=== PATIENT | male | born 1945 | race Caucasian/White ===

== ENCOUNTER 2016-10-19 08:45 | Day surgery (SDC) | payer BC, MEDICARE, OTHER ==
[~2016-10-19 08:45] MED LIST: EPINEPHRINE INJ 1 MG/10 ML DISP.SYRIN ONE; FENTANYL CITRATE INJ/PF 100 MCG/2 ML AMPUL ONE; FLUMAZENIL INJ 0.5 MG/5 ML VIAL IV ONE; GLUCAGON,HUMAN RECOMB 1 MG INJ ONE; MIDAZOLAM 2 MG/2 ML INJ ONE; NALOXONE HCL INJ/PF 0.4 MG/1 ML SDV ONE; ONDANSETRON HCL INJ/PF 4 MG/2 ML SDV ONE; PROMETHAZINE HCL INJ 25 MG/1 ML VIAL ONE
[2016-10-19] MEDS: MIDAZOLAM 2 MG/2 ML INJ ONE ×2 (10:02→10:10)
--- NOTE | 2016-10-19 10:36 | Operative Report ---
Operative Report DATE OF SURGERY: 10/19/16 PREOPERATIVE DIAGNOSIS: 1. Personal history of colon polyp. 2. History of left colectomy POSTOPERATIVE DIAGNOSIS: Same with. 1. Cecal polyp. 2. Multiple small rectal polyps. 3. External hemorrhoid, collapsed OPERATION: 1. Total colonoscopy to cecum with photodocumentation. 2. Cecal polypectomy. 3. Multiple rectal polypectomies SURGEON: SHANNON SMITH ANESTHESIA: Moderate Sedation TISSUE REMOVED OR ALTERED: Multiple polyps removed COMPLICATIONS: None ESTIMATED BLOOD LOSS: scant INTRAOPERATIVE FINDINGS: See below PROCEDURE: Obtaining informed consent the patient was taken from the preoperative holding area to the main endoscopy suite where monitoring devices were attached to the patient. Plan and surgical timeout were conducted The patient was placed in the left lateral decubitus position with knees to chest. A perianal examination was performed. There was no visible or palpable anorectal pathology. There was a small collapsed external hemorrhoid. Sphincter tone was felt to be normal. The flexible adult colonoscope was advanced through the anal rectal canal, all the way to the cecum. Utilization of the cecum was achieved and the ileocecal valve, the appendiceal orifice and transillumination of the anterior abdominal wall. This was an excellent study on the well-prepped bowel. At the base of the cecum was a small sessile polyp approximately 2 mm in diameter which was removed using the cold forceps device. Specimen was labeled a cecal polyp. Bleeding was negligible. The colonoscope was withdrawn slowly and methodically checked and the mucosa carefully. There was no evidence of tumor, stricture, bleeding. The patient's previous colectomy anastomosis was identified approximately 25 cm from the anal verge. Photos were taken. It appeared normal. In the rectum at approximately 20 cm from the anal verge were multiple small sessile polyps which were removed using cold forceps device. There were all placed in the same container and labeled rectal polyps. Bleeding was negligible ; there was no evidence of diverticular disease. Scope was slowly withdrawn through the anal rectal canal. Complete visualization of the rectum was achieved with photodocumentation. The scope was withdrawn to the patient's anus. The patient tolerated the procedure well and was taken to the recovery area in stable condition. per surveillance guidelines, patient will be appropriate Follow-up colonoscopy in 3 years, or sooner if symptoms develop.
--- NOTE | 2016-10-19 10:37 | PDOC DISCHARGE SUMMARY ---
Discharge Summary (SDC) - Discharge Final Diagnosis: 1. Multiple polyps 2. Ventral wall 3. History of left colon resection Date of Surgery: 10/19/16 Discharge Date: 10/19/16 Condition: Good Treatment or Instructions: [address] [address] POST ENDOSCOPY DISCHARGE INSTRUCTIONS 1. Diet: Start clear liquids that a regular diet as tolerated. 2. Resume all preoperative medications. All oral anticoagulants and aspirins can be resumed 24 hours after procedure. 3. If a polypectomy was performed some bleeding per rectum may occur. This should stop within 3 days. If not, please contact the office. 4. If you had a colonoscopy you may experience some bloating and delayed return of normal bowel function for several days, your regular bowel movement pattern should resume within a week. 5. Please contact [facility] at to make an appointment with Dr. Weiss for 1 to 3 weeks following procedure. 6. If you have any questions or concerns regarding your care,treatment plan or follow up, please contact our office. 7. Per clinical guidelines we recommend you undergo a repeat colonoscopy in 3 years. Discharge Diet: As Tolerated Discharge Activity: Activity As Tolerated Home Care Assistance: None Needed Report the Following to Your Physician Immediately: Shortness of Breath, Increase in Pain, Fever over 101 Degrees
[2016-10-19 11:29] VITALS: BP 123/72
== END 2016-10-19 11:35 | disposition home or self-care (01) ==
LOC: END 08:45
PROVIDERS: ATTEND Surgery
PROC: 0DBH8ZX Excision of Cecum, Via Natural or Artificial Opening Endoscopic, Diagnostic (ICD-10-PCS; 2016-10-19)
PROC: 0DBP8ZX Excision of Rectum, Via Natural or Artificial Opening Endoscopic, Diagnostic (ICD-10-PCS; principal; 2016-10-19 09:15)
DX: C18.9 Malignant neoplasm of colon, unspecified (principal); K63.5 Polyp of colon; D12.0 Benign neoplasm of cecum; I10 Essential (primary) hypertension; F17.210 Nicotine dependence, cigarettes, uncomplicated; Z90.49 Acquired absence of other specified parts of digestive tract; Z79.899 Other long term (current) drug therapy
CPT/HCPCS: 45380; 88305 ×2; J2250; J3010; J0171; J1610; J2310; J2405; J2550; J3490

== ENCOUNTER → 2016-12-05 | Outpatient (CLI) | payer MEDICARE | LOC: RAD 10:12 | PROVIDERS: ATTEND Surgery | DX: J18.9 Pneumonia, unspecified organism (principal); R63.4 Abnormal weight loss | CPT/HCPCS: 71020 ==

== ENCOUNTER → 2016-12-11 | Outpatient (CLI) | payer MEDICARE ==
--- NOTE | 2016-12-11 09:26 | RADIOLOGY REPORT (SQ) ---
EXAM DESCRIPTION: CT ABD/PELVIS ORAL ONLY COMPLETED DATE/TIME: 12/11/2016 9:06 am REASON FOR STUDY: VENTRAL HERNIA W/O OBSTRUCTION K43.9 VENTRAL HERNIA WITHOUT OBSTRUCTION OR GANGRE NE COMPARISON: Chest x-ray dated 12/05/2016. TECHNIQUE: CT scan of the abdomen and pelvis performed with oral contrast and no intravenous contras t. Images reviewed with lung, soft tissue, and bone windows. Reconstructed coronal and sagittal MPR i mages reviewed. All images stored on PACS. All CT scanners at this facility use dose modulation, iterative reconstruction, and/or weight based d osing when appropriate to reduce radiation dose to as low as reasonably achievable (ALARA). [facility]: Dose Right [facility]: CareDose [facility]: Dose Right [facility]: Teradose 4D [facility]: [employer] RADIATION DOSE: 11.84 mGy. LIMITATIONS: None. FINDINGS: LOWER CHEST: Right lower lobe infiltrate. Linear atelectasis or scarring in the left lowe r lobe. Subpulmonic pleural effusion. Small pericardial effusion. NON-CONTRASTED LIVER, SPLEEN, ADRENALS: Evaluation limited by lack of IV contrast. No identified sign ificant masses. PANCREAS: No masses. No peripancreatic inflammatory changes. GALLBLADDER: No identified stones by CT criteria. No inflammatory changes to suggest cholecystitis. RIGHT KIDNEY AND URETER: No suspicious masses. Assessment limited by lack of IV contrast. No signif icant calcifications. No hydronephrosis or hydroureter. LEFT KIDNEY AND URETER: 5 x 10 mm low-attenuation cortical lesion with average Hounsfield units 15. 4 cm cortical cyst arising from the inferior pole. Assessment limited by lack of IV contrast. No si gnificant calcifications. No hydronephrosis or hydroureter. AORTA AND RETROPERITONEUM: No aneurysm. No retroperitoneal masses or adenopathy. BOWEL AND PERITONEAL CAVITY: No obvious masses or inflammatory changes. No free fluid. APPENDIX: Not visualized. PELVIS, BLADDER, AND ABDOMINAL WALL: No abnormal pelvic masses. Bladder unremarkable. Two midline a bdominal wall hernias containing loops of small bowel and colon. There is also a left lateral abdomi nal wall hernia containing portions of the colon. BONES: No significant findings. OTHER: No other significant finding. IMPRESSION: 1. ABDOMINAL WALL HERNIAS DESCRIBED CONTAINING BOWEL LOOPS. NO MECHANICAL OBSTRUCTION AT THIS ROSALINDA E. 2. CORTICAL CYSTS IN THE LEFT KIDNEY. 3. INFILTRATE IN THE RIGHT LOWER LOBE WITH RIGHT PLEURAL EFFUSION. SMALL PERICARDIAL EFFUSION. TECHNICAL DOCUMENTATION: JOB ID: [id number] Quality ID # [id number]: Final reports with documentation of one or more dose reduction techniques (e.g., Au tomated exposure control, adjustment of the mA and/or kV according to patient size, use of iterative reconstruction technique) 2010 [employer]- All Rights Reserved
== END ==
LOC: RAD 07:52
PROVIDERS: ATTEND Surgery
DX: K43.9 Ventral hernia without obstruction or gangrene (principal); R63.4 Abnormal weight loss
CPT/HCPCS: 74176; 82565

== ENCOUNTER 2016-12-14 04:14 | Inpatient (IN) | payer MEDICARE ==
[2016-12-14] MEDS ORDERED: IPRATROPIUM/ALBUTEROL 0.5-2.5 MG/3 ML AMPUL NEB ONE ×4 (04:24→07:00)
[2016-12-14] MEDS ORDERED: PREDNISONE 20 MG TABLET PO ONE (04:35)
[2016-12-14] MEDS ORDERED: ALBUTEROL SULFATE 0.083% NEB 2.5 MG/3 ML AMPUL NEB SCH (04:50)
--- NOTE | 2016-12-14 06:25 | RADIOLOGY REPORT (SQ) ---
EXAM DESCRIPTION: CHEST SINGLE VIEW COMPLETED DATE/TIME: 12/14/2016 6:10 am REASON FOR STUDY: SHORTNESS OF BREATH COMPARISON: 12/05/2016. EXAM PARAMETERS: NUMBER OF VIEWS: One view. TECHNIQUE: Single frontal radiographic view of the chest acquired. RADIATION DOSE: NA LIMITATIONS: None. FINDINGS: LUNGS AND PLEURA: Small to moderate right basilar opacity -effusion. Moderate right lung volume. MEDIASTINUM AND HILAR STRUCTURES: No masses. Contour normal. HEART AND VASCULAR STRUCTURES: Heart normal in size. Normal vasculature. BONES: No acute findings. HARDWARE: None in the chest. OTHER: No other significant finding. IMPRESSION: Right basilar consolidate-effusion with some interval diminished right lung volume. TECHNICAL DOCUMENTATION: JOB ID: [id number]
[2016-12-14 07:17] LABS: ABSOLUTE LYMPHOCYTES (AUTO) 1.1 10^3/uL (0.5-4.7); ABSOLUTE MONOCYTES (AUTO) 0.8 10^3/uL (0.1-1.4); ABSOLUTE NEUT (AUTO) 5.2 10^3/uL (1.7-8.2); BASOPHILS % (AUTO) 0.6 % (0-2); EOSINOPHILS % (AUTO) 0.6 % (0-6); HEMATOCRIT 36.8 % (37.9-51.0); HEMOGLOBIN 12.5 g/dL (13.5-17.0); HGB HCT DIFFERENCE 0.7; LYMPHOCYTES % (AUTO) 15.7 % (13-45); MEAN CORPUSCULAR HEMOGLOBIN 28.7 pg (27.0-33.4); MEAN CORPUSCULAR HGB CONC 33.8 g/dL (32.0-36.0); MEAN CORPUSCULAR VOLUME 85 fl (80-97); MONOCYTES % (AUTO) 11.2 % (3-13); RED BLOOD COUNT 4.34 10^6/uL (4.35-5.55); RED CELL DISTRIBUTION WIDTH 13.9 % (11.5-14.0); SEGMENTED NEUTROPHILS % (AUTO) 71.9 % (42-78); WHITE BLOOD COUNT 7.3 10^3/uL (4.0-10.5)
[2016-12-14 07:25] LABS: PROTHROMBIN TIME 14.2 SEC (11.4-15.4)
--- NOTE | 2016-12-14 07:25 | ER Document Report ---
ED General - General Chief Complaint: Breathing Difficulty Stated Complaint: SHORTNESS OF BREATH Time Seen by Provider: 12/14/16 06:03 Mode of Arrival: Ambulatory Information source: Patient Notes: 71-year-old male chronic smoker presents with complaints of shortness of breath. Patient notes he has a history of a right pleural effusion. Denies any fevers or chills admits to intermittent cough TRAVEL OUTSIDE OF THE [place] IN LAST 30 DAYS: No - HPI Onset: Last week Onset/Duration: Persistent Quality of pain: No pain Severity: Moderate Pain Level: Denies Associated symptoms: Nonproductive cough, Shortness of breath Exacerbated by: Movement, Walking Relieved by: Denies Similar symptoms previously: Yes Recently seen / treated by doctor: Yes - Related Data Allergies/Adverse Reactions: No Known Allergies Allergy (Verified 10/19/16 08:41) Home Medications: Current Home Medications Hydrochlorothiazide 25 mg PO DAILY 12/14/16 [History] Past Medical History - Social History Smoking Status: Former Smoker Cigarette use (# per day): No - Quit 1 month ago Chew tobacco use (# tins/day): No Smoking Education Provided: No Family History: Reviewed & Not Pertinent - Past Medical History Cardiac Medical History: Reports: Hx Coronary Artery Disease, Hx Hypertension Denies: Hx Heart Attack Pulmonary Medical History: Denies: Hx Asthma, Hx Bronchitis, Hx COPD, Hx Pneumonia Neurological Medical History: Denies: Hx Cerebrovascular Accident, Hx Seizures Musculoskeltal Medical History: Reports Hx Arthritis - GENERALIZED - Immunizations Hx Diphtheria, Pertussis, Tetanus Vaccination: Yes Hx Pneumococcal Vaccination: 05/23/16 Review of Systems - Review of Systems Notes: PHYSICAL EXAMINATION: GENERAL: Well-appearing, well-nourished and in no acute distress. HEAD: Atraumatic, normocephalic. EYES: Pupils equal round and reactive to light, extraocular movements intact, sclera anicteric, conjunctiva are normal. ENT: Nares patent, oropharynx clear without exudates. Moist mucous membranes. NECK: Normal range of motion, supple without lymphadenopathy LUNGS: Rhonchorous right base HEART: Regular rate and rhythm without murmurs ABDOMEN: Soft, nontender, nondistended abdomen. No guarding, no rebound. No masses appreciated. Musculoskeletal: Normal range of motion, no pitting or edema. No cyanosis. NEUROLOGICAL: Cranial nerves grossly intact. Normal speech, normal gait. Normal sensory, motor exams PSYCH: Normal mood, normal affect. SKIN: Warm, Dry, normal turgor, no rashes or lesions noted. Physical Exam - Vital signs Vitals: Resp 24 H 12/14/16 04:36 Course - Re-evaluation Re-evalutation: 12/14/16 09:08 pt ambulated to 15 feet, o2 sats dropped to 82% hr 165, will admit to copd exacerbation 12/14/16 09:10 Patient given a total of 3 DuoNeb - Vital Signs Vital signs: Temp Pulse Resp BP Pulse Ox 76 27 H 98/72 L 97 12/14/16 04:38 12/14/16 08:39 12/14/16 07:31 12/14/16 08:39 - Laboratory Result Diagrams: 12/14/16 06:50 12/14/16 06:50 Laboratory results interpreted by me: 12/14/16 12/14/16 12/14/16 06:50 06:50 06:50 RBC 4.34 L Hgb 12.5 L Hct 36.8 L APTT 42.6 H Sodium 130.2 L Potassium 3.3 L Chloride 86 L BUN 29 H Creatinine 1.67 H Est GFR ( Amer) 50 L Est GFR (Non-Af Amer) 41 L Glucose 116 H Creatine Kinase 20 L Albumin 3.4 L - Diagnostic Test Radiology reviewed: Image reviewed, Reports reviewed - EKG Interpretation by Me EKG shows normal: Sinus rhythm, Baxter, Intervals, QRS Complexes Critical Care Note - Critical Care Note Total time excluding time spent on procedures (mins): 31 Comments: minutes of critical care time spent in direct contact evaluating and reevaluating the patient, treating symptoms, reviewing labs and studies and speaking with family and consultants excluding any procedures Discharge - Discharge Clinical Impression: Hypoxemia COPD (chronic obstructive pulmonary disease) Qualifiers: COPD type: COPD with acute exacerbation Qualified Code(s): J44.1 - Chronic obstructive pulmonary disease with (acute) exacerbation Hypotension Qualifiers: Hypotension type: unspecified hypotension type Qualified Code(s): I95.9 - Hypotension, unspecified Admitting Provider: Hospitalist Unit Admitted: Telemetry
[2016-12-14 07:26] LABS: PARTIAL THROMBOPLASTIN TIME 42.6 SEC (23.5-35.8)
[2016-12-14 07:31] LABS: ALANINE AMINOTRANSFERASE 43 U/L (21-72); ALBUMIN 3.4 g/dL (3.5-5.0); ALKALINE PHOSPHATASE 72 U/L (38-126); ANION GAP 14 (5-19); ASPARTATE AMINO TRANSFERASE 28 U/L (17-59); BILIRUBIN,DIRECT 0.4 mg/dL (0.0-0.4); BILIRUBIN,TOTAL 0.7 mg/dL (0.2-1.3); BLOOD UREA NITROGEN 29 mg/dL (7-20); CALCIUM 9.8 mg/dL (8.4-10.2); CARBON DIOXIDE 30 mmol/L (22-30); CHLORIDE 86 mmol/L (98-107); CREATINE KINASE 20 U/L (55-170); CREATININE RESULT 1.67 mg/dL (0.52-1.25); GLUCOSE 116 mg/dL (75-110); POTASSIUM 3.3 mmol/L (3.6-5.0); SODIUM 130.2 mmol/L (137-145); TOTAL PROTEIN 7.1 g/dL (6.3-8.2)
[2016-12-14 07:43] LABS: CREATINE KINASE MB 0.31 ng/mL (<4.55); TROPONIN I 0.02 ng/mL
--- NOTE | 2016-12-14 07:49 | EKG REPORT ---
SEVERITY:- ABNORMAL ECG - SINUS RHYTHM VENTRICULAR PREMATURE COMPLEX PROBABLE LEFT ATRIAL ABNORMALITY NONSPECIFIC INTRAVENTRICULAR CONDUCTION DELAY CONSIDER ANTEROSEPTAL INFARCT : Confirmed by: Melecio Nicholson MD 14-Dec-2016 07:48:32
[2016-12-14] MEDS ORDERED: ACETAMINOPHEN 325 MG TABLET PO PRN (09:55)
[2016-12-14] MEDS ORDERED: FAMOTIDINE 20 MG TABLET PO ONE (11:00)
[2016-12-14] MEDS: IPRATROPIUM/ALBUTEROL 0.5-2.5 MG/3 ML AMPUL NEB SCH ×3 (12:21→20:39)
[2016-12-14] MEDS ORDERED: MECLIZINE HCL 25 MG TABLET PO PRN (13:08)
--- NOTE | 2016-12-14 13:08 | PDOC H&P ---
History of Present Illness Admission Date/PCP: 12/14/16 09:56 Patient complains of: Shortness of breath, coughing, wheezing History of Present Illness: RIRI DUMONT is a 71 year old male who was an active smoker until 1 month ago when he developed worsening respiratory symptoms. Has had progressive cough, wheezing and shortness of breath. Has been seen as an outpatient by his primary physician. Believe he had a CT scan of the chest week. Of note, he is a very difficult historian, is currently very short of breath, and is difficult to understand. The patient's symptoms have significantly worsened over the past week. Today he was barely able to breathe and presented to the emergency department. Was found to have significant wheezing and chest congestion. He was afebrile. His white blood count was 7.3. His chest x-ray showed right basilar consolidate- effusion with some interval diminished right lung volume. Of note, he has a known right pleural effusion. The patient is admitted with acute exacerbation of COPD, to be treated with IV fluids, antibiotics, bronchodilators, corticosteroids, and oxygen supplementation as needed. Past Medical History Cardiac Medical History: Reports: Coronary Artery Disease, Hypertension Denies: Myocardial Infarction Pulmonary Medical History: Denies: Asthma, Bronchitis, Chronic Obstructive Pulmonary Disease (COPD), Pneumonia Neurological Medical History: Denies: Seizures Musculoskeltal Medical History: Reports: Arthritis - GENERALIZED Psychiatric Medical History: Denies: Depression Hematology: Denies: Anemia Social History Smoking Status: Current Some Day Smoker Cigarettes Packs Per Day: 2 Number of Years Smokin Last Time Smoked: MONTH AGO Frequency of Alcohol Use: Occasional Hx Recreational Drug Use: No Drugs: None Hx Prescription Drug Abuse: No - Advance Directive Resuscitation Status: Full Code Family History Family History: Reviewed & Not Pertinent Parental Family History Reviewed: No Children Family History Reviewed: No Sibling(s) Family History Reviewed.: No Medication/Allergy Home Medications: Amlodipine Besylate 10 mg PO DAILY 10/18/16 Meclizine HCl 25 mg PO TID PRN 10/18/16 Hydrochlorothiazide 25 mg PO DAILY 12/14/16 Allergies/Adverse Reactions: No Known Allergies Allergy (Verified 10/19/16 08:41) Review of Systems Constitutional: ABSENT: chills, fever(s), headache(s), weight gain, weight loss Eyes: ABSENT: visual disturbances Ears: ABSENT: hearing changes Cardiovascular: ABSENT: chest pain, dyspnea on exertion, edema, orthropnea, palpitations Respiratory: PRESENT: as per HPI, cough, dyspnea. ABSENT: hemoptysis Gastrointestinal: ABSENT: abdominal pain, constipation, diarrhea, hematemesis, hematochezia, nausea, vomiting Genitourinary: ABSENT: dysuria, hematuria Musculoskeletal: ABSENT: joint swelling Integumentary: ABSENT: rash, wounds Neurological: ABSENT: abnormal gait, confusion, dizziness, focal weakness, syncope Psychiatric: ABSENT: anxiety, depression, homidical ideation, suicidal ideation Endocrine: ABSENT: cold intolerance, heat intolerance, polydipsia, polyuria Hematologic/Lymphatic: ABSENT: easy bleeding, easy bruising Physical Exam Vital Signs: Temp Pulse Resp BP Pulse Ox 98.7 F 91 20 109/64 95 12/14/16 11:23 12/14/16 12:21 12/14/16 12:21 12/14/16 11:23 12/14/16 12:21 Intake & Output 12/13/16 12/14/16 12/15/16 06:59 06:59 06:59 Weight 82.9 kg General appearance: PRESENT: mild distress, well-developed, well-nourished Head exam: PRESENT: atraumatic, normocephalic Eye exam: PRESENT: conjunctiva pink, EOMI, PERRLA. ABSENT: scleral icterus Ear exam: PRESENT: normal external ear exam Mouth exam: PRESENT: moist, tongue midline Neck exam: ABSENT: carotid bruit, JVD, lymphadenopathy, thyromegaly Respiratory exam: PRESENT: accessory muscle use, decreased breath sounds, prolonged expiratory phas, wheezes. ABSENT: rales, rhonchi Cardiovascular exam: PRESENT: RRR. ABSENT: diastolic murmur, rubs, systolic murmur Pulses: PRESENT: normal dorsalis pedis pul Vascular exam: PRESENT: normal capillary refill GI/Abdominal exam: PRESENT: normal bowel sounds, soft. ABSENT: distended, guarding, mass, organolmegaly, rebound, tenderness Rectal exam: PRESENT: deferred Extremities exam: PRESENT: full ROM. ABSENT: calf tenderness, clubbing, pedal edema Neurological exam: PRESENT: alert, awake, oriented to person, oriented to place , oriented to time, oriented to situation, CN II-XII grossly intact. ABSENT: motor sensory deficit Psychiatric exam: PRESENT: appropriate affect, normal mood. ABSENT: homicidal ideation, suicidal ideation Skin exam: PRESENT: dry, intact, warm. ABSENT: cyanosis, rash Results Impressions: Chest X-Ray 12/14/16 04:35 IMPRESSION: Right basilar consolidate-effusion with some interval diminished right lung volume. Assessment & Plan - Diagnosis (1) Acute exacerbation of chronic obstructive pulmonary disease (COPD) Is this a current diagnosis for this admission?: YesPlan: IV fluids, IV antibiotics, nebulized bronchodilators, intravenous corticosteroids, supplemental oxygen as needed. (2) Hypoxemia Is this a current diagnosis for this admission?: YesPlan: Supplemental oxygen as needed. (3) HTN (hypertension) Qualifiers: Hypertension type: essential hypertension Qualified Code(s): I10 - Essential (primary) hypertension Is this a current diagnosis for this admission?: YesPlan: Continue home medications and monitor. - Time Time Spent: 50 to 70 Minutes Critical Time spent with patient: 35 or more minutes Smoking Cessation Education: 3 to 10 minutes Medications reviewed and adjusted accordingly: Yes
[2016-12-14] MEDS: METHYLPREDNISOLONE INJ 125 MG/2 ML SDV IV SCH ×2 (13:21→21:51)
[2016-12-14] MEDS: POTASSI CL 20 MEQ/D5-1/2NS 1L 1,000 ML IV PRN ×2 (13:23→21:53)
[2016-12-14] MEDS: FAMOTIDINE 20 MG TABLET PO SCH (21:51)
[2016-12-15 05:38] LABS: ABSOLUTE LYMPHOCYTES (AUTO) 0.5 10^3/uL (0.5-4.7); ABSOLUTE MONOCYTES (AUTO) 0.1 10^3/uL (0.1-1.4); ABSOLUTE NEUT (AUTO) 5.8 10^3/uL (1.7-8.2); BASOPHILS % (AUTO) 0.2 % (0-2); EOSINOPHILS % (AUTO) 0.1 % (0-6); HEMATOCRIT 32.1 % (37.9-51.0); HEMOGLOBIN 11.2 g/dL (13.5-17.0); HGB HCT DIFFERENCE 1.5; LYMPHOCYTES % (AUTO) 8.3 % (13-45); MEAN CORPUSCULAR HGB CONC 34.8 g/dL (32.0-36.0); MEAN CORPUSCULAR VOLUME 83 fl (80-97); MONOCYTES % (AUTO) 2.3 % (3-13); RED BLOOD COUNT 3.85 10^6/uL (4.35-5.55); RED CELL DISTRIBUTION WIDTH 13.8 % (11.5-14.0); SEGMENTED NEUTROPHILS % (AUTO) 89.1 % (42-78); WHITE BLOOD COUNT 6.5 10^3/uL (4.0-10.5)
[2016-12-15 06:07] LABS: ANION GAP 13 (5-19); BLOOD UREA NITROGEN 26 mg/dL (7-20); CALCIUM 9.2 mg/dL (8.4-10.2); CARBON DIOXIDE 23 mmol/L (22-30); CHLORIDE 89 mmol/L (98-107); CREATININE RESULT 1.39 mg/dL (0.52-1.25); GLUCOSE 169 mg/dL (75-110); POTASSIUM 3.5 mmol/L (3.6-5.0); SODIUM 124.9 mmol/L (137-145)
[2016-12-15] MEDS: METHYLPREDNISOLONE INJ 125 MG/2 ML SDV IV SCH ×3 (06:35→21:12)
[2016-12-15] MEDS: POTASSI CL 20 MEQ/D5-1/2NS 1L 1,000 ML IV PRN ×2 (06:35→15:00)
[2016-12-15] MEDS: IPRATROPIUM/ALBUTEROL 0.5-2.5 MG/3 ML AMPUL NEB SCH ×4 (08:01→19:58)
[2016-12-15] MEDS: FAMOTIDINE 20 MG TABLET PO SCH ×2 (09:31→21:12)
[2016-12-15] MEDS: ENOXAPARIN SODIUM INJ 40 MG/0.4 ML DISP.SYRIN SUBCUT SCH (09:31)
[2016-12-15] MEDS: AMLODIPINE BESYLATE 10 MG TABLET PO SCH (09:31)
--- NOTE | 2016-12-15 11:56 | PDOC PROGRESS REPORT ---
Subjective Progress Note for:: 12/15/16 Subjective:: RIRI DUMONT is a 71 year old male who was an active smoker until 1 month ago when he developed worsening respiratory symptoms. He has had progressive cough , wheezing and shortness of breath for the past two months. He has been seen as an outpatient by his primary care team at Dr. Kelin' office. Today I have obtained additional information: He has lost 40 pounds over the past few months. He had an out-patient CT chest on 12/12/2016 which showed extensive mediastinal adenopathy and other findings suggestive of metastatic cancer or lymphoma. There had not been enough time to address those findings before this admission. The patient's symptoms have significantly worsened over the past week. On the day of admission he was barely able to breathe and presented to the emergency department. Was found to have significant wheezing and chest congestion. He was afebrile. His white blood count was 7.3. His chest x-ray showed right basilar consolidate-effusion with some interval diminished right lung volume. Of note, he has a known right pleural effusion. The patient was admitted with acute exacerbation of COPD and has improved with IV fluids, antibiotics, bronchodilators, corticosteroids, and oxygen supplementation. He feels better at rest but still c/o dyspnea on minimal exertion. I have requested Pulmonary Medicine consultation. Physical Exam Vital Signs: Temp Pulse Resp BP Pulse Ox 97.4 F 79 21 H 121/70 94 12/15/16 11:05 12/15/16 11:05 12/15/16 11:05 12/15/16 11:05 12/15/16 11:05 Intake & Output 12/14/16 12/15/16 12/16/16 06:59 06:59 06:59 Intake Total 2819 Balance 2819 Weight 84.6 kg Additional comments: General appearance: PRESENT: no distress, well-developed, well-nourished Head exam: PRESENT: atraumatic, normocephalic Eye exam: PRESENT: conjunctiva pink, EOMI, PERRLA. ABSENT: scleral icterus Ear exam: PRESENT: normal external ear exam Mouth exam: PRESENT: moist, tongue midline Neck exam: ABSENT: carotid bruit, JVD, lymphadenopathy, thyromegaly Respiratory exam: PRESENT: breathing comfortably at rest, decreased breath sounds but better air movement, prolonged expiratory phase, wheezes. ABSENT: rales, rhonchi Cardiovascular exam: PRESENT: RRR. ABSENT: diastolic murmur, rubs, systolic murmur Pulses: PRESENT: normal dorsalis pedis pul Vascular exam: PRESENT: normal capillary refill GI/Abdominal exam: PRESENT: normal bowel sounds, soft. ABSENT: distended, guarding, mass, organolmegaly, rebound, tenderness Rectal exam: PRESENT: deferred Extremities exam: PRESENT: full ROM. ABSENT: calf tenderness, clubbing, pedal edema Neurological exam: PRESENT: alert, awake, oriented to person, oriented to place , oriented to time, oriented to situation, CN II-XII grossly intact. ABSENT: motor sensory deficit Psychiatric exam: PRESENT: appropriate affect, normal mood. ABSENT: homicidal ideation, suicidal ideation Skin exam: PRESENT: dry, intact, warm. ABSENT: cyanosis, rash Results Laboratory Results: 12/15/16 04:48 12/15/16 04:48 12/15/16 12/15/16 04:48 04:48 WBC 6.5 RBC 3.85 L Hgb 11.2 L Hct 32.1 L MCV 83 MCH 29.0 MCHC 34.8 RDW 13.8 Plt Count 176 Seg Neutrophils % 89.1 H Lymphocytes % 8.3 L Monocytes % 2.3 L Eosinophils % 0.1 Basophils % 0.2 Absolute Neutrophils 5.8 Absolute Lymphocytes 0.5 Absolute Monocytes 0.1 Absolute Eosinophils 0.0 Absolute Basophils 0.0 Sodium 124.9 L Potassium 3.5 L Chloride 89 L Carbon Dioxide 23 Anion Gap 13 BUN 26 H Creatinine 1.39 H Est GFR ( Amer) > 60 Est GFR (Non-Af Amer) 51 L Glucose 169 H Calcium 9.2 Impressions: Chest X-Ray 12/14/16 04:35 IMPRESSION: Right basilar consolidate-effusion with some interval diminished right lung volume. Assessment & Plan - Diagnosis (1) Acute exacerbation of chronic obstructive pulmonary disease (COPD) Is this a current diagnosis for this admission?: YesPlan: Continue IV fluids, IV antibiotics, nebulized bronchodilators, intravenous corticosteroids, supplemental oxygen as needed. (2) Hypoxemia Is this a current diagnosis for this admission?: YesPlan: Supplemental oxygen as needed. (3) Mediastinal lymphadenopathy Is this a current diagnosis for this admission?: YesPlan: The chest x-ray findings of right lower lobe consolidation/collapse/effusion along with the CT scan findings of extensive mediastinal adenopathy, certainly malignancy or lymphoma need to be strongly considered. I have requested pulmonary medicine consultation. (4) HTN (hypertension) Qualifiers: Hypertension type: essential hypertension Qualified Code(s): I10 - Essential (primary) hypertension Is this a current diagnosis for this admission?: YesPlan: Continue home medications and monitor.
--- NOTE | 2016-12-15 20:51 | PDOC CONSULTATION ---
Consultation Consult Date: 12/15/16 Attending physician:: LATOSHA WADDELL Consult reason:: lung mass/dyspnea History of Present Illness Admission Date/PCP: 12/14/16 09:56 History of Present Illness: RIRI DUMONT is a 71 year old male who was an active smoker until 1 month ago when he developed worsening respiratory symptoms. Has had progressive cough, wheezing and shortness of breath. Has been seen as an outpatient by his primary physician. Believe he had a CT scan of the chest week. Of note, he is a very difficult historian, is currently very short of breath, and is difficult to understand. The patient's symptoms have significantly worsened over the past week. Today he was barely able to breathe and presented to the emergency department. Was found to have significant wheezing and chest congestion. He was afebrile. His white blood count was 7.3. His chest x-ray showed right basilar consolidate- effusion with some interval diminished right lung volume. Of note, he has a known right pleural effusion. The patient is admitted with acute exacerbation of COPD, to be treated with IV fluids, antibiotics, bronchodilators, corticosteroids, and oxygen supplementation as needed. Past Medical History Cardiac Medical History: Reports: Coronary Artery Disease, Hypertension Denies: Myocardial Infarction Pulmonary Medical History: Denies: Asthma, Bronchitis, Chronic Obstructive Pulmonary Disease (COPD), Pneumonia Neurological Medical History: Denies: Seizures Musculoskeltal Medical History: Reports: Arthritis - GENERALIZED Psychiatric Medical History: Denies: Depression Hematology: Denies: Anemia Social History Information Source: Patient, [facility] Records Smoking Status: Current Some Day Smoker Cigarettes Packs Per Day: 2 Number of Years Smokin Last Time Smoked: MONTH AGO Passive smoke exposure as: Both Frequency of Alcohol Use: Occasional Hx Recreational Drug Use: No Drugs: None Hx Prescription Drug Abuse: No Have you been exposed to any sick contacts recently?: No Have you had any recent respiratory illnesses?: No Have you travelled outside of [place] in the past 12 months?: No - Advance Directive Resuscitation Status: Full Code Family History Family History: Reviewed & Not Pertinent Parental Family History Reviewed: Yes Children Family History Reviewed: Yes Sibling(s) Family History Reviewed.: Yes Medication/Allergy Home Medications: Amlodipine Besylate 10 mg PO DAILY 10/18/16 Meclizine HCl 25 mg PO TID PRN 10/18/16 Hydrochlorothiazide 25 mg PO DAILY 12/14/16 Allergies/Adverse Reactions: No Known Allergies Allergy (Verified 10/19/16 08:41) Physical Exam Vital Signs: Temp Pulse Resp BP Pulse Ox 97.4 F 79 21 H 121/70 94 12/15/16 11:05 12/15/16 11:05 12/15/16 11:05 12/15/16 11:05 12/15/16 11:05 Intake & Output 12/14/16 12/15/16 12/16/16 06:59 06:59 06:59 Intake Total 2819 Balance 2819 Weight 84.6 kg General appearance: PRESENT: cooperative, disheveled Head exam: PRESENT: atraumatic, normocephalic Eye exam: PRESENT: conjunctiva pale, EOMI Mouth exam: PRESENT: dry mucosa, neck supple Neck exam: ABSENT: carotid bruit, JVD, lymphadenopathy, thyromegaly Respiratory exam: PRESENT: decreased breath sounds, rales Cardiovascular exam: PRESENT: RRR, +S1, +S2 Pulses: PRESENT: normal radial pulses GI/Abdominal exam: PRESENT: ascites Rectal exam: PRESENT: deferred Gentrourinary exam: PRESENT: indwelling catheter Musculoskeletal exam: PRESENT: normal inspection Neurological exam: PRESENT: alert, awake Psychiatric exam: PRESENT: normal mood Skin exam: PRESENT: dry, warm Results Laboratory Results: 12/15/16 04:48 12/15/16 04:48 12/15/16 12/15/16 04:48 04:48 WBC 6.5 RBC 3.85 L Hgb 11.2 L Hct 32.1 L MCV 83 MCH 29.0 MCHC 34.8 RDW 13.8 Plt Count 176 Seg Neutrophils % 89.1 H Lymphocytes % 8.3 L Monocytes % 2.3 L Eosinophils % 0.1 Basophils % 0.2 Absolute Neutrophils 5.8 Absolute Lymphocytes 0.5 Absolute Monocytes 0.1 Absolute Eosinophils 0.0 Absolute Basophils 0.0 Sodium 124.9 L Potassium 3.5 L Chloride 89 L Carbon Dioxide 23 Anion Gap 13 BUN 26 H Creatinine 1.39 H Est GFR ( Amer) > 60 Est GFR (Non-Af Amer) 51 L Glucose 169 H Calcium 9.2 Impressions: Chest X-Ray 12/14/16 04:35 IMPRESSION: Right basilar consolidate-effusion with some interval diminished right lung volume. Assessment & Plan - Diagnosis (1) Acute exacerbation of chronic obstructive pulmonary disease (COPD) Is this a current diagnosis for this admission?: Yes (2) COPD (chronic obstructive pulmonary disease) Qualifiers: COPD type: COPD with acute exacerbation Qualified Code(s): J44.1 - Chronic obstructive pulmonary disease with (acute) exacerbation (3) HTN (hypertension) Qualifiers: Hypertension type: essential hypertension Qualified Code(s): I10 - Essential (primary) hypertension Is this a current diagnosis for this admission?: Yes (4) Mediastinal lymphadenopathy Is this a current diagnosis for this admission?: Yes
--- NOTE | 2016-12-15 22:17 | RADIOLOGY REPORT (SQ) ---
EXAM DESCRIPTION: CT CHEST WITHOUT COMPLETED DATE/TIME: 12/15/2016 10:04 pm REASON FOR STUDY: hilar mass COMPARISON: None. TECHNIQUE: CT scan performed of the chest without intravenous contrast. Images reviewed with lung, soft tissue and bone windows. Reconstructed coronal and sagittal MPR images reviewed. All images st ored on PACS. All CT scanners at this facility use dose modulation, iterative reconstruction, and/or weight based d osing when appropriate to reduce radiation dose to as low as reasonably achievable (ALARA). [facility]: Dose Right [facility]: CareDose [facility]: Dose Right [facility]: Teradose 4D [facility]: GetMyBoat RADIATION DOSE: 21.56 mGy. LIMITATIONS: No technical limitations. FINDINGS: LUNGS AND PLEURA: Mild centrilobular and paraseptal emphysema most notably involving the u pper lobes. Persistent right lower lobe airspace disease with additional patchy airspace opacities i n the right upper lobe and right middle lobe compatible with multifocal pneumonia. Trace right-sided pleural effusion which is likely reactive. HILAR AND MEDIASTINAL STRUCTURES: Bulky mediastinal and hilar lymphadenopathy involving both right an d left-sided chains resulting in narrowing of the adjacent airways. The largest left prevascular lym ph node measuring approximately 5.4 cm. The largest right paratracheal lymph node measuring approxim ately 4.8 cm. The largest subcarinal lymph node measuring approximately 4.7 cm. HEART AND VASCULAR STRUCTURES: Atherosclerotic calcifications including coronary artery calcification s. No aneurysm. Small pericardial effusion. UPPER ABDOMEN: No significant findings. Limited exam. THYROID AND OTHER SOFT TISSUES: Right supraclavicular lymphadenopathy with largest lymph node measuri ng 2.9 cm. No additional soft tissue mass identified. BONES: No significant finding. HARDWARE: None in the chest. OTHER: No other significant findings. IMPRESSION: BULKY MEDIASTINAL AND HILAR LYMPHADENOPATHY AND RIGHT SUPRACLAVICULAR LYMPHADENOPATHY DETAILED ABOVE. FINDINGS ARE MOST CONCERNING FOR LYMPHOMA WITH METASTATIC DISEASE ALSO IN THE DIFFE RENTIAL. LYMPH NODES SHOULD BE AMENABLE TO ENDOBRONCHIAL BIOPSY. MULTIFOCAL AIRSPACE DISEASE WITH CONSOLIDATION RIGHT LOWER LOBE AND TRACE PLEURAL EFFUSION LIKELY REP RESENTS A POSTOBSTRUCTIVE PNEUMONIA. CORONARY ARTERY DISEASE. TECHNICAL DOCUMENTATION: JOB ID: [id number] Quality ID # [id number]: Final reports with documentation of one or more dose reduction techniques (e.g., Au tomated exposure control, adjustment of the mA and/or kV according to patient size, use of iterative reconstruction technique) 2010 [employer]- All Rights Reserved
[2016-12-16] MEDS: POTASSI CL 20 MEQ/D5-1/2NS 1L 1,000 ML IV PRN ×3 (00:40→16:51)
[2016-12-16] MEDS: METHYLPREDNISOLONE INJ 125 MG/2 ML SDV IV SCH ×3 (05:18→21:37)
[2016-12-16 06:02] LABS: ABSOLUTE LYMPHOCYTES (AUTO) 0.8 10^3/uL (0.5-4.7); ABSOLUTE MONOCYTES (AUTO) 0.6 10^3/uL (0.1-1.4); ABSOLUTE NEUT (AUTO) 10.9 10^3/uL (1.7-8.2); BASOPHILS % (AUTO) 0.4 % (0-2); HEMATOCRIT 34.8 % (37.9-51.0); HEMOGLOBIN 11.8 g/dL (13.5-17.0); HGB HCT DIFFERENCE 0.6; LYMPHOCYTES % (AUTO) 6.7 % (13-45); MEAN CORPUSCULAR HEMOGLOBIN 28.6 pg (27.0-33.4); MEAN CORPUSCULAR VOLUME 84 fl (80-97); MONOCYTES % (AUTO) 4.8 % (3-13); RED BLOOD COUNT 4.13 10^6/uL (4.35-5.55); RED CELL DISTRIBUTION WIDTH 13.9 % (11.5-14.0); SEGMENTED NEUTROPHILS % (AUTO) 88.1 % (42-78); WHITE BLOOD COUNT 12.4 10^3/uL (4.0-10.5)
[2016-12-16 06:15] LABS: ANION GAP 11 (5-19); BLOOD UREA NITROGEN 20 mg/dL (7-20); CALCIUM 9.1 mg/dL (8.4-10.2); CARBON DIOXIDE 25 mmol/L (22-30); CHLORIDE 88 mmol/L (98-107); CREATININE RESULT 1.12 mg/dL (0.52-1.25); GLUCOSE 126 mg/dL (75-110); MAGNESIUM 1.8 mg/dL (1.6-2.3); PHOSPHORUS 3.2 mg/dL (2.5-4.5); POTASSIUM 3.8 mmol/L (3.6-5.0); SODIUM 123.8 mmol/L (137-145)
[2016-12-16] MEDS: ENOXAPARIN SODIUM INJ 40 MG/0.4 ML DISP.SYRIN SUBCUT SCH (08:42)
[2016-12-16] MEDS: IPRATROPIUM/ALBUTEROL 0.5-2.5 MG/3 ML AMPUL NEB SCH ×4 (08:53→20:11)
[2016-12-16 09:25] LABS: ARTERIAL BLOOD BASE EXCESS 2.2 mmol/L; ARTERIAL BLOOD O2 SATURATION 71.8 % (94-98)
[2016-12-16] MEDS: AMLODIPINE BESYLATE 10 MG TABLET PO SCH (09:31)
[2016-12-16] MEDS: FAMOTIDINE 20 MG TABLET PO SCH ×2 (09:32→21:37)
[2016-12-16 10:57] LABS: ARTERIAL BLOOD BASE EXCESS 0.5 mmol/L
[2016-12-16] MEDS ORDERED: DEXTROSE 40% GEL 15 GM TUBE PO PRN ×2 (11:06)
[2016-12-16] MEDS ORDERED: GLUCAGON,HUMAN RECOMB 1 MG INJ SUBCUT PRN (11:06)
[2016-12-16] MEDS ORDERED: DEXTROSE 50%-WATER 25 GM/50 ML DISP.SYRIN IV PRN ×2 (11:06)
[2016-12-16] MEDS ORDERED: ZOLPIDEM TARTRATE 5 MG TABLET PO PRN (12:00)
[2016-12-16] MEDS: OXYCODONE HCL IR 5 MG TABLET PO PRN ×2 (13:23→18:51)
--- NOTE | 2016-12-16 13:36 | PDOC PROGRESS REPORT ---
Subjective Progress Note for:: 12/16/16 Subjective:: RIRI DUMONT is a 71 year old male who was an active smoker until 1 month ago when he developed worsening respiratory symptoms. He has had progressive cough , wheezing and shortness of breath for the past two months. He has been seen as an outpatient by his primary care team at Dr. Klein' office. Today I have obtained additional information: He has lost 40 pounds over the past few months. He had an out-patient CT chest on 12/12/2016 which showed extensive mediastinal adenopathy and other findings suggestive of metastatic cancer or lymphoma. There had not been enough time to address those findings before this admission. The patient's symptoms have significantly worsened over the past week. On the day of admission he was barely able to breathe and presented to the emergency department. Was found to have significant wheezing and chest congestion. He was afebrile. His white blood count was 7.3. His chest x-ray showed right basilar consolidate-effusion with some interval diminished right lung volume. Of note, he has a known right pleural effusion. The patient was admitted with acute exacerbation of COPD and continues to improve with IV fluids, antibiotics, bronchodilators, corticosteroids, and oxygen supplementation. He feels better at rest but still c/o dyspnea on minimal exertion. The patient has been seen by Dr. White of pulmonology and I have discussed the case with him. A follow-up CT of the chest has been ordered and bronchoscopy is being considered. Physical Exam Vital Signs: Temp Pulse Resp BP Pulse Ox 97.7 F 76 18 127/70 H 99 12/16/16 11:00 12/16/16 12:30 12/16/16 12:30 12/16/16 11:00 12/16/16 12:30 Intake & Output 12/15/16 12/16/16 12/17/16 06:59 06:59 06:59 Intake Total 2819 3838 Balance 2819 3838 Weight 84.6 kg 85.3 kg Additional comments: General appearance: PRESENT: no distress, well-developed, well-nourished Head exam: PRESENT: atraumatic, normocephalic Eye exam: PRESENT: conjunctiva pink, EOMI, PERRLA. ABSENT: scleral icterus Ear exam: PRESENT: normal external ear exam Mouth exam: PRESENT: moist, tongue midline Neck exam: ABSENT: carotid bruit, JVD, lymphadenopathy, thyromegaly Respiratory exam: PRESENT: breathing comfortably at rest, decreased breath sounds especially on the right but better air movement in general, prolonged expiratory phase, wheezes. ABSENT: rales, rhonchi Cardiovascular exam: PRESENT: RRR. ABSENT: diastolic murmur, rubs, systolic murmur Pulses: PRESENT: normal dorsalis pedis pul Vascular exam: PRESENT: normal capillary refill GI/Abdominal exam: PRESENT: normal bowel sounds, soft. ABSENT: distended, guarding, mass, organolmegaly, rebound, tenderness Rectal exam: PRESENT: deferred Extremities exam: PRESENT: full ROM. ABSENT: calf tenderness, clubbing, pedal edema Neurological exam: PRESENT: alert, awake, oriented to person, oriented to place , oriented to time, oriented to situation, CN II-XII grossly intact. ABSENT: motor sensory deficit Psychiatric exam: PRESENT: appropriate affect, normal mood. ABSENT: homicidal ideation, suicidal ideation Skin exam: PRESENT: dry, intact, warm. ABSENT: cyanosis, rash Results Laboratory Results: 12/16/16 05:52 12/16/16 05:52 12/16/16 12/16/16 12/16/16 05:52 05:52 06:30 WBC 12.4 H RBC 4.13 L Hgb 11.8 L Hct 34.8 L MCV 84 MCH 28.6 MCHC 34.0 RDW 13.9 Plt Count 208 Seg Neutrophils % 88.1 H Lymphocytes % 6.7 L Monocytes % 4.8 Eosinophils % 0.0 Basophils % 0.4 Absolute Neutrophils 10.9 H Absolute Lymphocytes 0.8 Absolute Monocytes 0.6 Absolute Eosinophils 0.0 Absolute Basophils 0.0 Carbonic Acid Cancelled HCO3/H2CO3 Ratio Cancelled ABG pH Cancelled ABG pCO2 Cancelled ABG pO2 Cancelled ABG HCO3 Cancelled ABG O2 Saturation Cancelled ABG Base Excess Cancelled FiO2 Cancelled Sodium 123.8 L Potassium 3.8 Chloride 88 L Carbon Dioxide 25 Anion Gap 11 BUN 20 Creatinine 1.12 Est GFR ( Amer) > 60 Est GFR (Non-Af Amer) > 60 Glucose 126 H Calcium 9.1 Phosphorus 3.2 Magnesium 1.8 12/16/16 12/16/16 08:50 10:40 WBC RBC Hgb Hct MCV MCH MCHC RDW Plt Count Seg Neutrophils % Lymphocytes % Monocytes % Eosinophils % Basophils % Absolute Neutrophils Absolute Lymphocytes Absolute Monocytes Absolute Eosinophils Absolute Basophils Carbonic Acid 1.21 1.03 L HCO3/H2CO3 Ratio 21:1 23:1 ABG pH 7.44 7.46 H ABG pCO2 40.3 34.2 L ABG pO2 36.5 L* 85.8 ABG HCO3 26.5 H 23.9 ABG O2 Saturation 71.8 L 97.0 ABG Base Excess 2.2 0.5 FiO2 21% ROOM AIR Sodium Potassium Chloride Carbon Dioxide Anion Gap BUN Creatinine Est GFR ( Amer) Est GFR (Non-Af Amer) Glucose Calcium Phosphorus Magnesium 12/14/16 17:43 Sputum Gram Stain - Final 12/14/16 17:43 Sputum Sputum Culture - Final NORMAL ROSALIE Impressions: Chest X-Ray 12/14/16 04:35 IMPRESSION: Right basilar consolidate-effusion with some interval diminished right lung volume. Chest CT 12/15/16 00:00 IMPRESSION: BULKY MEDIASTINAL AND HILAR LYMPHADENOPATHY AND RIGHT SUPRACLAVICULAR LYMPHADENOPATHY DETAILED ABOVE. FINDINGS ARE MOST CONCERNING FOR LYMPHOMA WITH METASTATIC DISEASE ALSO IN THE DIFFERENTIAL. LYMPH NODES SHOULD BE AMENABLE TO ENDOBRONCHIAL BIOPSY. MULTIFOCAL AIRSPACE DISEASE WITH CONSOLIDATION RIGHT LOWER LOBE AND TRACE PLEURAL EFFUSION LIKELY REPRESENTS A POSTOBSTRUCTIVE PNEUMONIA. CORONARY ARTERY DISEASE. Assessment & Plan - Diagnosis (1) Acute exacerbation of chronic obstructive pulmonary disease (COPD) Is this a current diagnosis for this admission?: YesPlan: Continue IV fluids, IV antibiotics, nebulized bronchodilators, intravenous corticosteroids, supplemental oxygen as needed. (2) Hypoxemia Is this a current diagnosis for this admission?: YesPlan: Supplemental oxygen as needed. (3) Mediastinal lymphadenopathy Is this a current diagnosis for this admission?: YesPlan: The chest x-ray findings of right lower lobe consolidation/collapse/effusion along with the CT scan findings of extensive mediastinal adenopathy, certainly raise suspicion of malignancy or lymphoma. I have discussed the case with Dr. White of pulmonology. A follow-up CT of the chest has been requested and bronchoscopy is being considered. (4) HTN (hypertension) Qualifiers: Hypertension type: essential hypertension Qualified Code(s): I10 - Essential (primary) hypertension Is this a current diagnosis for this admission?: YesPlan: Continue home medications and monitor.
[2016-12-16] MEDS ORDERED: DILTIAZEM HCL 60 MG TABLET PO ONE (23:45)
[2016-12-17] MEDS ORDERED: TRAZODONE HCL 50 MG TABLET PO ONE (02:00)
[2016-12-17 05:11] LABS: ABSOLUTE LYMPHOCYTES (AUTO) 0.9 10^3/uL (0.5-4.7); ABSOLUTE MONOCYTES (AUTO) 0.8 10^3/uL (0.1-1.4); ABSOLUTE NEUT (AUTO) 10.9 10^3/uL (1.7-8.2); BASOPHILS % (AUTO) 0.1 % (0-2); HEMATOCRIT 35.8 % (37.9-51.0); HEMOGLOBIN 12.2 g/dL (13.5-17.0); HGB HCT DIFFERENCE 0.8; LYMPHOCYTES % (AUTO) 7.3 % (13-45); MEAN CORPUSCULAR HEMOGLOBIN 28.5 pg (27.0-33.4); MEAN CORPUSCULAR HGB CONC 33.9 g/dL (32.0-36.0); MEAN CORPUSCULAR VOLUME 84 fl (80-97); MONOCYTES % (AUTO) 6.5 % (3-13); RED BLOOD COUNT 4.26 10^6/uL (4.35-5.55); RED CELL DISTRIBUTION WIDTH 14.1 % (11.5-14.0); SEGMENTED NEUTROPHILS % (AUTO) 86.1 % (42-78); WHITE BLOOD COUNT 12.7 10^3/uL (4.0-10.5)
[2016-12-17 05:28] LABS: ANION GAP 15 (5-19); BLOOD UREA NITROGEN 19 mg/dL (7-20); CALCIUM 8.9 mg/dL (8.4-10.2); CARBON DIOXIDE 19 mmol/L (22-30); CHLORIDE 90 mmol/L (98-107); CREATININE RESULT 0.89 mg/dL (0.52-1.25); GLUCOSE 130 mg/dL (75-110); POTASSIUM 4.2 mmol/L (3.6-5.0); SODIUM 123.7 mmol/L (137-145)
[2016-12-17] MEDS: METHYLPREDNISOLONE INJ 125 MG/2 ML SDV IV SCH ×3 (05:39→21:57)
[2016-12-17] MEDS: OXYCODONE HCL IR 5 MG TABLET PO PRN ×2 (05:52→10:21)
[2016-12-17] MEDS: POTASSI CL 20 MEQ/D5-1/2NS 1L 1,000 ML IV PRN ×2 (05:56→19:58)
[2016-12-17] MEDS: IPRATROPIUM/ALBUTEROL 0.5-2.5 MG/3 ML AMPUL NEB SCH ×4 (08:16→19:44)
[2016-12-17] MEDS: ENOXAPARIN SODIUM INJ 40 MG/0.4 ML DISP.SYRIN SUBCUT SCH (10:19)
[2016-12-17] MEDS: FAMOTIDINE 20 MG TABLET PO SCH ×2 (10:21→21:57)
--- NOTE | 2016-12-17 11:45 | PDOC PROGRESS REPORT ---
Subjective Progress Note for:: 12/17/16 Subjective:: RIRI DUMONT is a 71 year old male who was an active smoker until 1 month ago when he developed worsening respiratory symptoms. He has had progressive cough , wheezing and shortness of breath for the past two months. He has been seen as an outpatient by his primary care team at Dr. Klein' office. I have obtained additional information: He has lost 40 pounds over the past few months. He had an out-patient CT chest on 12/12/2016 which showed extensive mediastinal adenopathy and other findings suggestive of metastatic cancer or lymphoma. There had not been enough time to address those findings before this admission. The patient's symptoms have significantly worsened over the week [employer]. On the day of admission he was barely able to breathe and presented to the emergency department. Was found to have significant wheezing and chest congestion. He was afebrile. His white blood count was 7.3. His chest x-ray showed right basilar consolidate-effusion with some interval diminished right lung volume. Of note, he has a known right pleural effusion. The patient was admitted with acute exacerbation of COPD and continues to improve with IV fluids, antibiotics, bronchodilators, corticosteroids, and oxygen supplementation. He feels better at rest but still c/o dyspnea on minimal exertion. The patient has been seen by Dr. White of pulmonology and I have discussed the case with him. A follow-up CT of the chest has been ordered and bronchoscopy is planned for Tuesday 12/19. Overnight he had significant anxiety and tachycardia, both of which are better this morning. Physical Exam Vital Signs: Temp Pulse Resp BP Pulse Ox 97.4 F 122 H 18 107/77 98 12/17/16 07:58 12/17/16 08:18 12/17/16 08:18 12/17/16 07:58 12/17/16 08:18 Intake & Output 12/16/16 12/17/16 12/18/16 06:59 06:59 06:59 Intake Total 3838 3035 Balance 3838 3035 Weight 85.3 kg 85.3 kg Additional comments: General appearance: PRESENT: no distress, well-developed, well-nourished Head exam: PRESENT: atraumatic, normocephalic Eye exam: PRESENT: conjunctiva pink, EOMI, PERRLA. ABSENT: scleral icterus Ear exam: PRESENT: normal external ear exam Mouth exam: PRESENT: moist, tongue midline Neck exam: ABSENT: carotid bruit, JVD, lymphadenopathy, thyromegaly Respiratory exam: PRESENT: breathing comfortably at rest, decreased breath sounds especially on the right but better air movement in general, prolonged expiratory phase, wheezes. ABSENT: rales, rhonchi Cardiovascular exam: PRESENT: RRR. ABSENT: diastolic murmur, rubs, systolic murmur Pulses: PRESENT: normal dorsalis pedis pul Vascular exam: PRESENT: normal capillary refill GI/Abdominal exam: PRESENT: normal bowel sounds, soft. ABSENT: distended, guarding, mass, organolmegaly, rebound, tenderness Rectal exam: PRESENT: deferred Extremities exam: PRESENT: full ROM. ABSENT: calf tenderness, clubbing, pedal edema Neurological exam: PRESENT: alert, awake, oriented to person, oriented to place , oriented to time, oriented to situation, CN II-XII grossly intact. ABSENT: motor sensory deficit Psychiatric exam: PRESENT: appropriate affect, normal mood. ABSENT: homicidal ideation, suicidal ideation Skin exam: PRESENT: dry, intact, warm. ABSENT: cyanosis, rash Results Laboratory Results: 12/17/16 04:39 12/17/16 04:39 12/17/16 12/17/16 04:39 04:39 WBC 12.7 H RBC 4.26 L Hgb 12.2 L Hct 35.8 L MCV 84 MCH 28.5 MCHC 33.9 RDW 14.1 H Plt Count 219 Seg Neutrophils % 86.1 H Lymphocytes % 7.3 L Monocytes % 6.5 Eosinophils % 0.0 Basophils % 0.1 Absolute Neutrophils 10.9 H Absolute Lymphocytes 0.9 Absolute Monocytes 0.8 Absolute Eosinophils 0.0 Absolute Basophils 0.0 Sodium 123.7 L Potassium 4.2 Chloride 90 L Carbon Dioxide 19 L Anion Gap 15 BUN 19 Creatinine 0.89 Est GFR ( Amer) > 60 Est GFR (Non-Af Amer) > 60 Glucose 130 H Calcium 8.9 12/14/16 17:43 Sputum Gram Stain - Final 12/14/16 17:43 Sputum Sputum Culture - Final NORMAL ROSALIE Impressions: Chest X-Ray 12/14/16 04:35 IMPRESSION: Right basilar consolidate-effusion with some interval diminished right lung volume. Chest CT 12/15/16 00:00 IMPRESSION: BULKY MEDIASTINAL AND HILAR LYMPHADENOPATHY AND RIGHT SUPRACLAVICULAR LYMPHADENOPATHY DETAILED ABOVE. FINDINGS ARE MOST CONCERNING FOR LYMPHOMA WITH METASTATIC DISEASE ALSO IN THE DIFFERENTIAL. LYMPH NODES SHOULD BE AMENABLE TO ENDOBRONCHIAL BIOPSY. MULTIFOCAL AIRSPACE DISEASE WITH CONSOLIDATION RIGHT LOWER LOBE AND TRACE PLEURAL EFFUSION LIKELY REPRESENTS A POSTOBSTRUCTIVE PNEUMONIA. CORONARY ARTERY DISEASE. Assessment & Plan - Diagnosis (1) Acute exacerbation of chronic obstructive pulmonary disease (COPD) Is this a current diagnosis for this admission?: YesPlan: Continue IV fluids, IV antibiotics, nebulized bronchodilators, intravenous corticosteroids, supplemental oxygen as needed. Will reduce corticosteroid as the AE-COPD has improved and the steroid may be aggravating his anxiety. (2) Hypoxemia Is this a current diagnosis for this admission?: YesPlan: Supplemental oxygen as needed. (3) Mediastinal lymphadenopathy Is this a current diagnosis for this admission?: YesPlan: The chest x-ray findings of right lower lobe consolidation/collapse/effusion along with the CT scan findings of extensive mediastinal adenopathy certainly raise suspicion of malignancy or lymphoma. I have discussed the case with Dr. White of pulmonology. A follow-up CT of the chest has been requested and bronchoscopy is planned for Tuesday 12/19. (4) HTN (hypertension) Qualifiers: Hypertension type: essential hypertension Qualified Code(s): I10 - Essential (primary) hypertension Is this a current diagnosis for this admission?: YesPlan: Continue home medications and monitor. (5) Anxiety Is this a current diagnosis for this admission?: YesPlan: Ativan prn and decrease corticosteroid. (6) Insomnia Qualifiers: Insomnia type: unspecified Qualified Code(s): G47.00 - Insomnia, unspecified Is this a current diagnosis for this admission?: YesPlan: Increase Ambien, decrease corticosteroid.
[2016-12-17] MEDS: AMLODIPINE BESYLATE 10 MG TABLET PO SCH (13:53)
[2016-12-17] MEDS: ZOLPIDEM TARTRATE 5 MG TABLET PO PRN (22:00)
[2016-12-18] MEDS: METHYLPREDNISOLONE INJ 125 MG/2 ML SDV IV SCH (05:50)
[2016-12-18 06:04] LABS: ANION GAP 9 (5-19); BLOOD UREA NITROGEN 22 mg/dL (7-20); CALCIUM 8.9 mg/dL (8.4-10.2); CARBON DIOXIDE 24 mmol/L (22-30); CHLORIDE 90 mmol/L (98-107); CREATININE RESULT 0.93 mg/dL (0.52-1.25); GLUCOSE 111 mg/dL (75-110); POTASSIUM 4.7 mmol/L (3.6-5.0); SODIUM 123.1 mmol/L (137-145)
[2016-12-18 06:20] LABS: PROTHROMBIN TIME 13.3 SEC (11.4-15.4)
[2016-12-18] MEDS: IPRATROPIUM/ALBUTEROL 0.5-2.5 MG/3 ML AMPUL NEB SCH ×4 (08:14→20:17)
[2016-12-18] MEDS: POTASSI CL 20 MEQ/D5-1/2NS 1L 1,000 ML IV PRN ×2 (09:49→23:21)
[2016-12-18] MEDS: FAMOTIDINE 20 MG TABLET PO SCH ×2 (09:49→21:12)
[2016-12-18] MEDS: AMLODIPINE BESYLATE 10 MG TABLET PO SCH (09:49)
--- NOTE | 2016-12-18 12:38 | PDOC PROGRESS REPORT ---
Subjective Progress Note for:: 12/18/16 Subjective:: RIRI DUMONT is a 71 year old male who was an active smoker until 1 month ago when he developed worsening respiratory symptoms. He has had progressive cough , wheezing and shortness of breath for the past two months. He has been seen as an outpatient by his primary care team at Dr. Klein' office. I have obtained additional information: He has lost 40 pounds over the past few months. He had an out-patient CT chest on 12/12/2016 which showed extensive mediastinal adenopathy and other findings suggestive of metastatic cancer or lymphoma. There had not been enough time to address those findings before this admission. 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 On the day of admission he was barely able to breathe and presented to the emergency department. He was found to have significant wheezing and chest congestion. He was afebrile. His white blood count was 7.3. His chest x-ray showed right basilar consolidate-effusion with some interval diminished right lung volume. Of note, he has a known right pleural effusion. The patient was admitted with acute exacerbation of COPD and continues to improve with IV fluids, antibiotics, bronchodilators, corticosteroids, and oxygen supplementation. He feels better at rest but still c/o dyspnea on minimal exertion. The patient has been seen by Dr. White of pulmonology and I have discussed the case with him. A follow-up CT of the chest was done on and bronchoscopy is planned for Tuesday 12/19. Overall, he feels better with the respiratory treatments but is still significantly REESE. Physical Exam Vital Signs: Temp Pulse Resp BP Pulse Ox 97.5 F 100 18 122/69 100 12/18/16 12:00 12/18/16 12:00 12/18/16 12:00 12/18/16 12:00 12/18/16 12:00 Intake & Output 12/17/16 12/18/16 12/19/16 06:59 06:59 06:59 Intake Total 3035 2222 Output Total 350 Balance 3035 1872 Weight 85.3 kg 90.1 kg Additional comments: General appearance: PRESENT: no distress at rest, well-developed, well-nourished Head exam: PRESENT: atraumatic, normocephalic Eye exam: PRESENT: conjunctiva pink, EOMI, PERRLA. ABSENT: scleral icterus Ear exam: PRESENT: normal external ear exam Mouth exam: PRESENT: moist, tongue midline Neck exam: ABSENT: carotid bruit, JVD, lymphadenopathy, thyromegaly Respiratory exam: PRESENT: breathing comfortably at rest, decreased breath sounds especially on the right but better air movement in general, prolonged expiratory phase, forced expiratory wheezes. ABSENT: rales, rhonchi Cardiovascular exam: PRESENT: RRR. ABSENT: diastolic murmur, rubs, systolic murmur Pulses: PRESENT: normal dorsalis pedis pul Vascular exam: PRESENT: normal capillary refill GI/Abdominal exam: PRESENT: normal bowel sounds, soft. ABSENT: distended, guarding, mass, organolmegaly, rebound, tenderness Rectal exam: PRESENT: deferred Extremities exam: PRESENT: full ROM. ABSENT: calf tenderness, clubbing, pedal edema Neurological exam: PRESENT: alert, awake, oriented to person, oriented to place , oriented to time, oriented to situation, CN II-XII grossly intact. ABSENT: motor sensory deficit Psychiatric exam: PRESENT: appropriate affect, normal mood. ABSENT: homicidal ideation, suicidal ideation Skin exam: PRESENT: dry, intact, warm. ABSENT: cyanosis, rash Results Laboratory Results: 12/17/16 04:39 12/18/16 04:48 12/18/16 04:48 Sodium 123.1 L Potassium 4.7 Chloride 90 L Carbon Dioxide 24 Anion Gap 9 BUN 22 H Creatinine 0.93 Est GFR ( Amer) > 60 Est GFR (Non-Af Amer) > 60 Glucose 111 H Calcium 8.9 Impressions: Chest X-Ray 12/14/16 04:35 IMPRESSION: Right basilar consolidate-effusion with some interval diminished right lung volume. Chest CT 12/15/16 00:00 IMPRESSION: BULKY MEDIASTINAL AND HILAR LYMPHADENOPATHY AND RIGHT SUPRACLAVICULAR LYMPHADENOPATHY DETAILED ABOVE. FINDINGS ARE MOST CONCERNING FOR LYMPHOMA WITH METASTATIC DISEASE ALSO IN THE DIFFERENTIAL. LYMPH NODES SHOULD BE AMENABLE TO ENDOBRONCHIAL BIOPSY. MULTIFOCAL AIRSPACE DISEASE WITH CONSOLIDATION RIGHT LOWER LOBE AND TRACE PLEURAL EFFUSION LIKELY REPRESENTS A POSTOBSTRUCTIVE PNEUMONIA. CORONARY ARTERY DISEASE. Assessment & Plan - Diagnosis (1) Acute exacerbation of chronic obstructive pulmonary disease (COPD) Is this a current diagnosis for this admission?: YesPlan: Continue IV fluids, IV antibiotics, nebulized bronchodilators, intravenous corticosteroids, supplemental oxygen as needed. Will reduce corticosteroid as the AE-COPD has improved and the steroid may be aggravating his anxiety. (2) Hypoxemia Is this a current diagnosis for this admission?: YesPlan: Supplemental oxygen as needed. (3) Mediastinal lymphadenopathy Is this a current diagnosis for this admission?: YesPlan: The chest x-ray findings of right lower lobe consolidation/collapse/effusion along with the CT scan findings of extensive mediastinal and perihilar adenopathy certainly raise suspicion of metastatic malignancy or lymphoma. I have discussed the case with Dr. White of pulmonology. A bronchoscopy is planned for Tuesday 12/19. (4) HTN (hypertension) Qualifiers: Hypertension type: essential hypertension Qualified Code(s): I10 - Essential (primary) hypertension Is this a current diagnosis for this admission?: YesPlan: Continue home medications and monitor. (5) Anxiety Is this a current diagnosis for this admission?: YesPlan: Ativan prn and decrease corticosteroid. (6) Insomnia Qualifiers: Insomnia type: unspecified Qualified Code(s): G47.00 - Insomnia, unspecified Is this a current diagnosis for this admission?: YesPlan: Ambien prn, and decrease corticosteroid.
[2016-12-18] MEDS ORDERED: ACETAMINOPHEN 325 MG TABLET PO PRN ×2 (13:34→13:36)
--- NOTE | 2016-12-18 21:10 | EKG REPORT ---
SEVERITY:- ABNORMAL ECG - ATRIAL FIBRILLATION, V-RATE 80-153 CONSIDER ANTEROSEPTAL INFARCT BORDERLINE T ABNORMALITIES, INFERIOR LEADS BORDERLINE PROLONGED QT INTERVAL : Confirmed by: Rachelle Gerard 18-Dec-2016 21:09:39
[2016-12-18] MEDS ORDERED: METHYLPREDNISOLONE INJ 125 MG/2 ML SDV IV SCH (22:00)
[2016-12-18] MEDS: LORAZEPAM 0.5 MG TABLET PO PRN (23:21)
[2016-12-18] MEDS: ZOLPIDEM TARTRATE 5 MG TABLET PO PRN (23:22)
[2016-12-18] MEDS: OXYCODONE HCL IR 5 MG TABLET PO PRN (23:48)
[2016-12-19 05:22] LABS: ABSOLUTE LYMPHOCYTES (AUTO) 0.8 10^3/uL (0.5-4.7); ABSOLUTE MONOCYTES (AUTO) 0.8 10^3/uL (0.1-1.4); BASOPHILS % (AUTO) 0.1 % (0-2); HEMOGLOBIN 11.5 g/dL (13.5-17.0); HGB HCT DIFFERENCE 1.5; LYMPHOCYTES % (AUTO) 7.2 % (13-45); MEAN CORPUSCULAR HEMOGLOBIN 29.4 pg (27.0-33.4); MEAN CORPUSCULAR HGB CONC 34.9 g/dL (32.0-36.0); MEAN CORPUSCULAR VOLUME 84 fl (80-97); MONOCYTES % (AUTO) 7.8 % (3-13); RED BLOOD COUNT 3.91 10^6/uL (4.35-5.55); RED CELL DISTRIBUTION WIDTH 14.5 % (11.5-14.0); SEGMENTED NEUTROPHILS % (AUTO) 84.9 % (42-78); WHITE BLOOD COUNT 10.6 10^3/uL (4.0-10.5)
[2016-12-19 05:38] LABS: ANION GAP 8 (5-19); BLOOD UREA NITROGEN 22 mg/dL (7-20); CALCIUM 8.7 mg/dL (8.4-10.2); CARBON DIOXIDE 22 mmol/L (22-30); CHLORIDE 92 mmol/L (98-107); CREATININE RESULT 0.95 mg/dL (0.52-1.25); GLUCOSE 112 mg/dL (75-110); POTASSIUM 4.9 mmol/L (3.6-5.0); SODIUM 121.8 mmol/L (137-145)
[2016-12-19] MEDS: IPRATROPIUM/ALBUTEROL 0.5-2.5 MG/3 ML AMPUL NEB SCH ×4 (07:28→20:10)
[2016-12-19] MEDS ORDERED: METHYLPREDNISOLONE INJ 125 MG/2 ML SDV IV SCH (09:04)
--- NOTE | 2016-12-19 09:59 | EKG REPORT ---
SEVERITY:- ABNORMAL ECG - ATRIAL FIBRILLATION, V-RATE 68-144 ANTERIOR INFARCT, OLD BORDERLINE T ABNORMALITIES, INFERIOR LEADS : Confirmed by: Rachelle Gerard 19-Dec-2016 09:59:09
[2016-12-19] MEDS: FAMOTIDINE 20 MG TABLET PO SCH ×2 (10:36→22:04)
[2016-12-19] MEDS: METHYLPREDNISOLONE INJ 40 MG/1 ML SDV IV SCH ×2 (10:39→22:05)
--- NOTE | 2016-12-19 13:30 | PDOC PROGRESS REPORT ---
Subjective Progress Note for:: 12/19/16 Subjective:: stable Physical Exam Vital Signs: Temp Pulse Resp BP Pulse Ox 97.4 F 93 16 135/70 H 91 L 12/19/16 07:42 12/19/16 11:57 12/19/16 11:57 12/19/16 07:42 12/19/16 07:42 Intake & Output 12/18/16 12/19/16 12/20/16 06:59 06:59 06:59 Intake Total 2222 2280 Output Total 350 Balance 1872 2280 Weight 90.1 kg 85.3 kg General appearance: PRESENT: no acute distress, cooperative, disheveled, obese, well-developed Head exam: PRESENT: atraumatic, normocephalic Eye exam: PRESENT: conjunctiva pale, EOMI Mouth exam: PRESENT: moist, neck supple Neck exam: ABSENT: carotid bruit, JVD, lymphadenopathy, thyromegaly Respiratory exam: PRESENT: decreased breath sounds, prolonged expiratory phas, rhonchi, wheezes Cardiovascular exam: PRESENT: irregular rhythm, +S1, +S2 Pulses: PRESENT: normal radial pulses GI/Abdominal exam: PRESENT: normal bowel sounds, soft. ABSENT: distended, guarding, mass, organolmegaly, rebound, tenderness Rectal exam: PRESENT: deferred Musculoskeletal exam: PRESENT: normal inspection Neurological exam: PRESENT: alert, awake Psychiatric exam: PRESENT: normal mood Skin exam: PRESENT: dry, warm Results Laboratory Results: 12/19/16 04:54 12/19/16 04:54 12/19/16 12/19/16 04:54 04:54 WBC 10.6 H RBC 3.91 L Hgb 11.5 L Hct 33.0 L MCV 84 MCH 29.4 MCHC 34.9 RDW 14.5 H Plt Count 126 L Seg Neutrophils % 84.9 H Lymphocytes % 7.2 L Monocytes % 7.8 Eosinophils % 0.0 Basophils % 0.1 Absolute Neutrophils 9.0 H Absolute Lymphocytes 0.8 Absolute Monocytes 0.8 Absolute Eosinophils 0.0 Absolute Basophils 0.0 Sodium 121.8 L Potassium 4.9 Chloride 92 L Carbon Dioxide 22 Anion Gap 8 BUN 22 H Creatinine 0.95 Est GFR ( Amer) > 60 Est GFR (Non-Af Amer) > 60 Glucose 112 H Calcium 8.7 Impressions: Chest X-Ray 12/14/16 04:35 IMPRESSION: Right basilar consolidate-effusion with some interval diminished right lung volume. Chest CT 12/15/16 00:00 IMPRESSION: BULKY MEDIASTINAL AND HILAR LYMPHADENOPATHY AND RIGHT SUPRACLAVICULAR LYMPHADENOPATHY DETAILED ABOVE. FINDINGS ARE MOST CONCERNING FOR LYMPHOMA WITH METASTATIC DISEASE ALSO IN THE DIFFERENTIAL. LYMPH NODES SHOULD BE AMENABLE TO ENDOBRONCHIAL BIOPSY. MULTIFOCAL AIRSPACE DISEASE WITH CONSOLIDATION RIGHT LOWER LOBE AND TRACE PLEURAL EFFUSION LIKELY REPRESENTS A POSTOBSTRUCTIVE PNEUMONIA. CORONARY ARTERY DISEASE. Assessment & Plan - Diagnosis (1) Acute exacerbation of chronic obstructive pulmonary disease (COPD) Is this a current diagnosis for this admission?: Yes (2) COPD (chronic obstructive pulmonary disease) Qualifiers: COPD type: COPD with acute exacerbation Qualified Code(s): J44.1 - Chronic obstructive pulmonary disease with (acute) exacerbation (3) HTN (hypertension) Qualifiers: Hypertension type: essential hypertension Qualified Code(s): I10 - Essential (primary) hypertension Is this a current diagnosis for this admission?: Yes (4) Mediastinal lymphadenopathy Is this a current diagnosis for this admission?: YesPlan: bronchoscopy postpone in face of new cardiac (5) Atrial fibrillation Is this a current diagnosis for this admission?: YesPlan: 1st noted EKG 12/18 and confirmed EKG 12/19 w/u in progress
[2016-12-19] MEDS ORDERED: DILTIAZEM HCL 30 MG TABLET PO ONE (13:51)
[2016-12-19] MEDS ORDERED: DIGOXIN INJ 0.5 MG/2 ML AMPULE IV ONE (13:51)
[2016-12-19] MEDS: DILTIAZEM HCL 60 MG TABLET PO SCH ×2 (15:27→18:33)
--- NOTE | 2016-12-19 15:59 | PDOC PROGRESS REPORT ---
Subjective Progress Note for:: 12/19/16 Subjective:: reason for visit: f/u new onset afib, COPD exac, hypoxia, adenopathy hospital course: per other's notes - "RIRI DUMONT is a 71 year old male who was an active smoker until 1 month ago when he developed worsening respiratory symptoms. He has had progressive cough, wheezing and shortness of breath for the past two months. He has been seen as an outpatient by his primary care team at Dr. Klein' office. I have obtained additional information: He has lost 40 pounds over the past few months. He had an out-patient CT chest on 2016 which showed extensive mediastinal adenopathy and other findings suggestive of metastatic cancer or lymphoma. There had not been enough time to address those findings before this admission. 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 On the day of admission he was barely able to breathe and presented to the emergency department. He was found to have significant wheezing and chest congestion. He was afebrile. His white blood count was 7.3. His chest x-ray showed right basilar consolidate-effusion with some interval diminished right lung volume. Of note, he has a known right pleural effusion. The patient was admitted with acute exacerbation of COPD and continues to improve with IV fluids, antibiotics, bronchodilators, corticosteroids, and oxygen supplementation. He feels better at rest but still c/o dyspnea on minimal exertion. The patient has been seen by Dr. White of pulmonology and I have discussed the case with him. A follow-up CT of the chest was done on and bronchoscopy is planned for Tuesday 12/19. Overall, he feels better with the respiratory treatments but is still significantly REESE." ekg performed last night for reasons not clear to me at this time but shows new onset afib, confirmed on repeat this morning. he is asymptomatic as to palpitations, still feels fatigued and breathless with minimal exertion but denies chest pain, cough with phlegm, fever/chills. his nurse and indicate he is a bit confused this morning, tried to pour his gatorade onto his IV site b/c he "needed to water the garden". ROS: a bit unreliable due to his mental state Physical Exam Vital Signs: Temp Pulse Resp BP Pulse Ox 97.4 F 93 16 135/70 H 91 L 12/19/16 07:42 12/19/16 11:57 12/19/16 11:57 12/19/16 07:42 12/19/16 07:42 Intake & Output 12/18/16 12/19/16 12/20/16 06:59 06:59 06:59 Intake Total 2222 2280 Output Total 350 Balance 1872 2280 Weight 90.1 kg 85.3 kg General appearance: PRESENT: no acute distress, cooperative, well-developed, well-nourished Head exam: PRESENT: atraumatic, normocephalic Eye exam: PRESENT: EOMI. ABSENT: scleral icterus Mouth exam: PRESENT: moist, neck supple, tongue midline Neck exam: PRESENT: full ROM. ABSENT: tracheal deviation Respiratory exam: PRESENT: accessory muscle use, crackles, unlabored. ABSENT: rhonchi, wheezes Cardiovascular exam: PRESENT: irregular rhythm, systolic murmur, tachycardia Pulses: PRESENT: normal radial pulses, normal dorsalis pedis pul GI/Abdominal exam: PRESENT: normal bowel sounds, soft. ABSENT: tenderness Extremities exam: PRESENT: pedal edema. ABSENT: calf tenderness Musculoskeletal exam: PRESENT: full ROM. ABSENT: tenderness Neurological exam: PRESENT: alert, awake, oriented to person, oriented to place , oriented to situation. ABSENT: oriented to time Psychiatric exam: PRESENT: appropriate affect, normal mood. ABSENT: agitated, anxious Skin exam: PRESENT: dry, warm Results Laboratory Results: 12/19/16 04:54 12/19/16 04:54 12/19/16 12/19/16 04:54 04:54 WBC 10.6 H RBC 3.91 L Hgb 11.5 L Hct 33.0 L MCV 84 MCH 29.4 MCHC 34.9 RDW 14.5 H Plt Count 126 L Seg Neutrophils % 84.9 H Lymphocytes % 7.2 L Monocytes % 7.8 Eosinophils % 0.0 Basophils % 0.1 Absolute Neutrophils 9.0 H Absolute Lymphocytes 0.8 Absolute Monocytes 0.8 Absolute Eosinophils 0.0 Absolute Basophils 0.0 Sodium 121.8 L Potassium 4.9 Chloride 92 L Carbon Dioxide 22 Anion Gap 8 BUN 22 H Creatinine 0.95 Est GFR ( Amer) > 60 Est GFR (Non-Af Amer) > 60 Glucose 112 H Calcium 8.7 Impressions: Chest X-Ray 12/14/16 04:35 IMPRESSION: Right basilar consolidate-effusion with some interval diminished right lung volume. Chest CT 12/15/16 00:00 IMPRESSION: BULKY MEDIASTINAL AND HILAR LYMPHADENOPATHY AND RIGHT SUPRACLAVICULAR LYMPHADENOPATHY DETAILED ABOVE. FINDINGS ARE MOST CONCERNING FOR LYMPHOMA WITH METASTATIC DISEASE ALSO IN THE DIFFERENTIAL. LYMPH NODES SHOULD BE AMENABLE TO ENDOBRONCHIAL BIOPSY. MULTIFOCAL AIRSPACE DISEASE WITH CONSOLIDATION RIGHT LOWER LOBE AND TRACE PLEURAL EFFUSION LIKELY REPRESENTS A POSTOBSTRUCTIVE PNEUMONIA. CORONARY ARTERY DISEASE. Assessment & Plan - Diagnosis (1) Atrial fibrillation Qualifiers: Atrial fibrillation type: unspecified Qualified Code(s): I48.91 - Unspecified atrial fibrillation Is this a current diagnosis for this admission?: YesPlan: new onset and not well controlled, no prior hx of same. stop norvasc and start cardizem, consult cardiology, full dose lovenox if bronch delayed as a result, echo, dimer and dopplers of lower ext's due to c/o asymmetric swelling R>L. may need to minimize use of albuterol if possible. (2) Hyponatremia Is this a current diagnosis for this admission?: YesPlan: worse; likely related to mediastinal mass but Bx not on hold due to above. ck again in am, SL ivfs and may need fluid restriction and SIADH evaluation, particularly if his mental state declines much further at which time would also ck MRI brain to r/o mets. (3) Acute exacerbation of chronic obstructive pulmonary disease (COPD) Is this a current diagnosis for this admission?: YesPlan: improved but not back to baseline; decrease medrol as this may be confounding his volume status and Na levels. (4) HTN (hypertension) Qualifiers: Hypertension type: essential hypertension Qualified Code(s): I10 - Essential (primary) hypertension Is this a current diagnosis for this admission?: Yes (5) Hypoxemia Is this a current diagnosis for this admission?: Yes (6) Mediastinal lymphadenopathy Is this a current diagnosis for this admission?: Yes - Time Time Spent with patient: 35 or more minutes - case d/w'd dr vega
[2016-12-19 17:10] LABS: ARTERIAL BLOOD BASE EXCESS -0.4 mmol/L; ARTERIAL BLOOD O2 SATURATION 97.4 % (94-98)
[2016-12-19] MEDS ORDERED: ENOXAPARIN SODIUM INJ 40 MG/0.4 ML DISP.SYRIN SUBCUT SCH (22:00)
[2016-12-19] MEDS: ENOXAPARIN SODIUM INJ 100 MG/1 ML DISP.SYRIN SUBCUT SCH (22:06)
--- NOTE | 2016-12-19 22:28 | CONSULTATION REPORT E ---
Consultation Report NAME: RIRI DUMONT : 1945 AGE: 71Y DATE: 12/19/2016 R00M: [id number] A TO: DEANDRA BOSTON M.D. FROM: LATOSHA WADDELL M.D. Requesting Physician REASON FOR CONSULTATION: The patient with new onset atrial fibrillation seen on EKG of 12/18/2016 in the morning. The patient is a very poor historian. The patient is admitted for a history of shortness of breath, cough, and wheezing and orthopnea but no PND, and some leg edema present since about a month which is progressively worsening. The patient says the cough is nonproductive. The patient is an active smoker and quit about 1 month ago, but the symptoms have worsened over the past week. His chest x-ray on admission showed right basilar consolidative effusion with some diminished right lung volume. A CT of the chest showed mediastinal adenopathy and also right supraclavicular lymph node enlargement. The patient is being worked up for that. He was supposed to have a bronchoscopy but this was held because of the patient in atrial fibrillation with a ventricular response of 111-120 beats per minute. The patient denies any chest pain or discomfort. There is orthopnea present and some mild leg edema. There is no PND. The patient states that he has not had this irregular heartbeat in the past and does not feel palpitations. There are no TIA or CVA symptoms. There is no syncope. PAST MEDICAL HISTORY: The patient also denies COPD, does have all the markings of COPD per physical exam. He denies any sleep apnea. He denies any history of asthma but has been wheezing for over a month. He has been an active smoker until 1 month ago. He has no history of pulmonary embolism. He has a history of hypertension but no diabetes or thyroid disease. He also has a history of anxiety and insomnia. There is no history of depression or TIA or CVA symptoms. The patient denies any chronic kidney disease. PAST SURGICAL HISTORY: He states that he had a colonoscopy and there was a tear in his colon/ rupture of the colon for which he had surgery. SMOKING HISTORY: The patient states that he smoked until about a month ago when he stopped. He used to smoke 2 packs of cigarettes per day. He smoked for 53 years. ADVANCE DIRECTIVES: The patient is a full code. His is his surrogate healthcare decision maker. FAMILY HISTORY: He is very vague about it, saying there is coronary artery disease but he does not know whether they had an FL or heart failure. He states that his father had it and also his brother. He said that was a long time ago. ALLERGIES: He has no known allergies. MEDICATIONS: 1. Tylenol 650 mg p.o. q.4 hours p.r.n. 2. Dextrose glucose 40%, 15 g and 30 g p.o. respectively p.r.n. hypoglycemia. 3. Dextrose 50%, 12.5 g and 25 g IV p.r.n. hypoglycemia. 4. Cardizem 60 mg p.o. q.6 hours. 5. Lovenox initially 40 mg subcutaneously daily. 6. Pepcid 20 mg p.o. q.12 hours. 7. Glucagon 1 mg subcutaneously p.r.n. 8. Ipratropium/albuterol nebulizer treatment q.4 hours p.r.n. 9. Lorazepam 0.5 mg p.o. q.8 hours p.r.n. 10. Meclizine 25 mg p.o. t.i.d. p.r.n. 11. Methylprednisolone 40 mg IV q.12 hours. 12. Oxycodone 5 mg p.o. q.4 hours p.r.n. 13. Zolpidem titrate 10 mg p.o. at bedtime p.r.n. REVIEW OF SYSTEMS: CONSTITUTIONAL: Denies any fever, chills or rigors, but complains of generalized fatigue and weakness. HEAD: Denies headaches or head injury or dizziness. EYES: No history of amblyopia or diplopia. No history of amaurosis fugax. EARS: No history of vertigo. No history of tinnitus. No history of recurrent ear infections. NOSE: No history of hay fever. No history of nosebleeds. No nasal polyposis. MOUTH: No altered taste sensation. No history of ulcers in the mouth. No bleeding from the gums. THROAT: No odynophagia or dysphagia. No history of recurrent sore throats. SKIN: No history of skin rashes or pruritus. No yellowish discoloration of the skin. No psoriasis or skin cancer. NECK: Denies any neck pain. No enlarged swelling in the neck, painful or painless. There is no goiter. LUNGS: The patient denies COPD but he has all the hallmarks by physical examination of COPD. He has been a long time smoker. He denies asthma but he has been wheezing for a month. He denies sleep apnea. There is no history of pulmonary embolism. No history of hemoptysis. The patient has a cough which is dry. He has orthopnea. He is not producing any sputum with the dry cough. CARDIAC: History of hypertension present. The patient states he is not known to have atrial fibrillation in the past, but the patient went into atrial fibrillation yesterday, mostly precipitated by his lung condition. He has a history of coronary artery disease he states but no FL or angina symptoms, and does not give a good history as to whether he had workup for that. There is no history of syncope. There are no palpitations. There is no PND. There is orthopnea. There is some leg edema present. MUSCULOSKELETAL: Denies arthritis or collagen vascular disease. GASTROINTESTINAL: No history of GI bleed. No history of fatty food intolerance. No history of altered bowel movements. No abdominal pain. No history of hepatitis. RENAL: No history of chronic kidney disease. No symptom of UTI. No hematuria, pyuria, or dysuria. VASCULAR: No history of calf or buttock claudication. No history of DVT. CENTRAL NERVOUS SYSTEM: No history of TIA or CVA. No history of headaches, migraines, or seizures. No history of gait imbalance. PSYCHIATRIC: The patient has a history of anxiety and insomnia, but no history of depression. No history of suicidal ideation or homicidal ideation. METABOLIC: Denies hyperlipidemia or gout. HEMATOLOGICAL: Denies any history of hematological disorders or bleeding diathesis or clotting disorders. The rest of the review of symptoms is positive for as the patient states at rest he is slightly short of breath but when he walks a few steps he is very much short of breath, which has been progressively increasing since 1 month and also as mentioned earlier as having orthopnea. PHYSICAL EXAMINATION: GENERAL: On examination the patient is in some distress. The patient is on *------* and O2. He appears to be slightly overweight and seems to be well-nourished and well-groomed. VITAL SIGNS: He is afebrile with a temperature of 97.4 degrees Fahrenheit. Pulse is 111 beats per minute, irregularly irregular. Blood pressure is 127/88. Respirations are 22 per minute. Oxygen saturations are 98% on 2 L nasal cannula. HEENT: Head is atraumatic, normocephalic. Eyes: Pupils are equal, round and regular, react to light and accommodation. Extraocular movements are normal. Ears: Tympanic membranes are intact, external auditory canals are clear. Note there is no deviation of the nasal septum, there is no inflammation of the nasal mucous membranes. Mouth: Mucous membranes of the mouth are moist, tongue is moist. There are no ulcers, there is no bleeding from the gums. Throat: There is no redness of the oropharynx. There are no exudates. NECK: Supple. There is no JVD. There is no goiter. Carotids are equal. There is no bruit. Trachea seems to central. LUNGS: At rest there is no accessory muscles of respirations but he appears to be mildly short of breath. When he talks he can talk only a few sentences. There is dullness and egophony on the right lower lobe. The rest of the lungs show a few scattered wheezing, end-expiratory. There are no rales of CHF. There is diminished air entry and prolonged expiration toward the lungs on auscultation. On percussion there is dullness in the right lower lobe but the rest of the lungs show hyperresonance. HEART: S1, S2 is heard. There is no S3 gallop. There is no S4 gallop. There is a systolic murmur in the left sternal border and the apex. There is no rub. S1 is of variable intensity. ABDOMEN: Soft, nontender. There is no hepatosplenomegaly. Bowel sounds are well heard. There are no tender areas or masses. EXTREMITIES: Femorals are diminished. There are no femoral bruits. Leg pulses are diminished. There is trace pedal edema bilaterally, the right more than left. There is no cyanosis or clubbing. There is no DVT or cellulitis. There is no calf tenderness. CENTRAL NERVOUS SYSTEM: The patient is conscious, awake, alert and oriented x3 with no focal deficits. PSYCHIATRIC: The patient appears to be slightly anxious but his judgment and insight seem to be intact. DIAGNOSTIC STUDIES: His chest x-ray done on 12/14, shows right basilar consolidation, effusion with some interval diminished right lung volume. There is no evidence of CHF. The patient's EKG done on 12/14, shows sinus rhythm, ventricular premature complex, probable left atrial abnormality, nonspecific IVCD, poor R-wave V1 to V2 most likely secondary to lead placement. His chest CT shows bulky mediastinal hilar lymphadenopathy and right supraclavicular lymphadenopathy. Findings are most concerning for lymphoma with metastatic disease also in the differential. Lymph nodes should be amenable endobronchial biopsy. Multifocal airspace disease with consolidation right lower lobe and trace pleural effusion likely represents a post obstructive pneumonia and also he has coronary artery disease by x-ray. As mentioned earlier he was supposed to have bronchoscopy and biopsy of the nodes, but this was deferred due to the patient being in atrial fibrillation. The patient's white count is 10,600; hemoglobin is 11.5; hematocrit is 33; platelet count is 126,000. The patient's ProTime is 13.3, INR 0.94. The patient's ABG showed a pH of 7.47, pCO2 of 32, pO2 is 90.8, O2 sats are 97.4 on 2 L nasal cannula. The patient's sodium is 121.8, potassium is 4.9, chloride 92, CO2 is 22. The patient's BUN is 22, creatinine 0.95, GFR is greater than 60. His glucose is 112 and his calcium is 8.7. His CPK done on 12/14, was 0.31 and troponin I was 0.020. His NT-proBNP was 411. IMPRESSION: 1. New onset atrial fibrillation. Continue Cardizem, we will give an extra dose of 1 dose of Cardizem 30 mg p.o. now and also 1 dose of IV digoxin 0.125 mg to see if the heart will get controlled. 2. Acute exacerbation of chronic obstructive pulmonary disease. The patient is on respiratory treatments for that. 3. Hypoxemia and dehydration. Now O2 sats are much better. 4. Mediastinal lymphadenopathy and right supraclavicular lymphadenopathy. The differential diagnosis of lymphoma versus metastatic disease. The patient is going to be having a bronchoscopy and biopsy. 5. Right lower lobe pneumonia, most likely post obstructive. Would recommend starting the patient on antibiotics. 6. Hypertension. Blood pressure well-controlled. Continue his Cardizem. 7. Anxiety. Ativan p.r.n. and decrease *------* 8. History of insomnia. The patient will be getting Ambien p.r.n. 9. History of coronary artery disease. No FL or angina. Not clear whether the patient had a workup for this. If the patient's heart rate continues to be up then we will transfer him to a telemetry unit and start him on IV Cardizem to control his heart rate. Also, since the patient's CHADS2-VASc score is 2, would recommend starting the patient on full dose Lovenox. All of the above discussed with the patient and patient discussed with the hospitalist taking care of the patient and agile tester. Note, 40 minutes spent on this with more than 50% of the time spent on direct patient care, his medications have been reviewed and medications adjusted. This is a highly complex case due to the necessity of making multiple complex medical decisions in view of the patient's lymphadenopathy, post obstructive pneumonia, atrial fibrillation. We will discuss with Dr. White if full dose anticoagulation should be okay in this patient. We will follow with you. DICTATING PHYSICIAN: DEANDRA BOSTON M.D. [id number] PHY#: [id number] ID: [id number] JOB#: [id number] ACCT: [id number] cc:DEANDRA BOSTON M.D. >
[2016-12-20] MEDS: DILTIAZEM HCL 60 MG TABLET PO SCH ×3 (00:24→12:05)
[2016-12-20] MEDS: ZOLPIDEM TARTRATE 5 MG TABLET PO PRN (00:25)
[2016-12-20 06:30] LABS: ANION GAP 10 (5-19); BLOOD UREA NITROGEN 21 mg/dL (7-20); CALCIUM 9.3 mg/dL (8.4-10.2); CARBON DIOXIDE 26 mmol/L (22-30); CHLORIDE 90 mmol/L (98-107); CREATININE RESULT 1.04 mg/dL (0.52-1.25); GLUCOSE 97 mg/dL (75-110); MAGNESIUM 1.9 mg/dL (1.6-2.3); SODIUM 125.6 mmol/L (137-145)
[2016-12-20 06:57] LABS: THYROID STIMULATING HORMONE 0.95 uIU/mL (0.47-4.68)
[2016-12-20] MEDS: IPRATROPIUM/ALBUTEROL 0.5-2.5 MG/3 ML AMPUL NEB SCH ×4 (07:54→20:22)
--- NOTE | 2016-12-20 11:46 | PDOC PROGRESS REPORT ---
Subjective Progress Note for:: 12/20/16 Subjective:: reason for visit: f/u new onset afib, COPD exac, hypoxia, adenopathy hospital course: per other's notes - "RIRI DUMONT is a 71 year old male who was an active smoker until 1 month ago when he developed worsening respiratory symptoms. He has had progressive cough, wheezing and shortness of breath for the past two months. He has been seen as an outpatient by his primary care team at Dr. Klein' office. I have obtained additional information: He has lost 40 pounds over the past few months. He had an out-patient CT chest on 2016 which showed extensive mediastinal adenopathy and other findings suggestive of metastatic cancer or lymphoma. There had not been enough time to address those findings before this admission. 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 On the day of admission he was barely able to breathe and presented to the emergency department. He was found to have significant wheezing and chest congestion. He was afebrile. His white blood count was 7.3. His chest x-ray showed right basilar consolidate-effusion with some interval diminished right lung volume. Of note, he has a known right pleural effusion. The patient was admitted with acute exacerbation of COPD and continues to improve with IV fluids, antibiotics, bronchodilators, corticosteroids, and oxygen supplementation. He feels better at rest but still c/o dyspnea on minimal exertion. The patient has been seen by Dr. White of pulmonology and I have discussed the case with him. A follow-up CT of the chest was done on and bronchoscopy is planned for Tuesday 12/19. Overall, he feels better with the respiratory treatments but is still significantly REESE." ekg performed last night for reasons not clear to me at this time but shows new onset afib, confirmed on repeat this morning. he is asymptomatic as to palpitations, still feels fatigued and breathless with minimal exertion but denies chest pain, cough with phlegm, fever/chills. his nurse and indicate he is a bit confused this morning, tried to pour his gatorade onto his IV site b/c he "needed to water the garden". as of Sunday his mental state has cleared back to baseline. His HR is better controlled on short acting cardizem and his breathing is much improved. ROS: denies chest pain, palpitations, n/v/d, abdominal pain, still some wheezing and dry hacking cough, total 10 systems reviewed, remaining systems negative Physical Exam Vital Signs: Temp Pulse Resp BP Pulse Ox 97.6 F 89 13 104/63 100 12/20/16 08:00 12/20/16 08:00 12/20/16 08:00 12/20/16 08:00 12/20/16 08:00 Intake & Output 12/19/16 12/20/16 12/21/16 06:59 06:59 06:59 Intake Total 2280 928 Output Total 1100 Balance 2280 -172 Weight 85.3 kg 85.3 kg General appearance: PRESENT: no acute distress, well-developed, well-nourished Head exam: PRESENT: atraumatic, normocephalic Eye exam: ABSENT: conjunctival injection, scleral icterus Mouth exam: PRESENT: moist, neck supple Neck exam: ABSENT: JVD, tracheal deviation Respiratory exam: PRESENT: crackles. ABSENT: accessory muscle use, unlabored, wheezes Cardiovascular exam: PRESENT: irregular rhythm. ABSENT: tachycardia Pulses: PRESENT: normal radial pulses, normal dorsalis pedis pul GI/Abdominal exam: PRESENT: normal bowel sounds, soft. ABSENT: tenderness Extremities exam: PRESENT: pedal edema - R>L as before. ABSENT: calf tenderness Musculoskeletal exam: PRESENT: ambulatory, full ROM Neurological exam: PRESENT: alert, awake, oriented to person, oriented to place , oriented to time, oriented to situation, reflexes normal Psychiatric exam: PRESENT: appropriate affect, normal mood Skin exam: PRESENT: warm. ABSENT: dry Results Laboratory Results: 12/19/16 04:54 12/20/16 05:15 12/19/16 12/20/16 12/20/16 17:00 05:15 05:15 Carbonic Acid 0.96 L HCO3/H2CO3 Ratio 23:1 ABG pH 7.47 H ABG pCO2 32.0 L ABG pO2 90.8 ABG HCO3 22.6 ABG O2 Saturation 97.4 ABG Base Excess -0.4 FiO2 2L Sodium 125.6 L Potassium 5.0 Chloride 90 L Carbon Dioxide 26 Anion Gap 10 BUN 21 H Creatinine 1.04 Est GFR ( Amer) > 60 Est GFR (Non-Af Amer) > 60 Glucose 97 Calcium 9.3 Magnesium 1.9 TSH 0.95 Free T4 1.12 Impressions: Chest X-Ray 12/14/16 04:35 IMPRESSION: Right basilar consolidate-effusion with some interval diminished right lung volume. Chest CT 12/15/16 00:00 IMPRESSION: BULKY MEDIASTINAL AND HILAR LYMPHADENOPATHY AND RIGHT SUPRACLAVICULAR LYMPHADENOPATHY DETAILED ABOVE. FINDINGS ARE MOST CONCERNING FOR LYMPHOMA WITH METASTATIC DISEASE ALSO IN THE DIFFERENTIAL. LYMPH NODES SHOULD BE AMENABLE TO ENDOBRONCHIAL BIOPSY. MULTIFOCAL AIRSPACE DISEASE WITH CONSOLIDATION RIGHT LOWER LOBE AND TRACE PLEURAL EFFUSION LIKELY REPRESENTS A POSTOBSTRUCTIVE PNEUMONIA. CORONARY ARTERY DISEASE. Assessment & Plan - Diagnosis (1) Atrial fibrillation Qualifiers: Atrial fibrillation type: unspecified Qualified Code(s): I48.91 - Unspecified atrial fibrillation Is this a current diagnosis for this admission?: YesPlan: new onset rate better controlled now on cardizem, no prior hx of same. d/w'd cardiology, ok for conscious sedation and to hold full dose lovenox for bronch if ok with Dr White; f/u echo and dopplers of lower ext's due to c/o asymmetric swelling R>L. minimize use of albuterol as tolerated. 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 (3) Acute exacerbation of chronic obstructive pulmonary disease (COPD) Is this a current diagnosis for this admission?: YesPlan: improved but not back to baseline; titrate medrol as this may be confounding his volume status and Na levels. (4) HTN (hypertension) Qualifiers: Hypertension type: essential hypertension Qualified Code(s): I10 - Essential (primary) hypertension Is this a current diagnosis for this admission?: Yes (5) Hypoxemia Is this a current diagnosis for this admission?: Yes (6) Mediastinal lymphadenopathy Is this a current diagnosis for this admission?: YesPlan: d/w'd dr white who will plan with anesthesiology for possible bronch tomorrow , will need to hold lovenox if plan proceeds. - Time Time Spent with patient: 35 or more minutes Anticipated discharge: Home Within: within 72 hours
[2016-12-20] MEDS: FAMOTIDINE 20 MG TABLET PO SCH ×2 (12:05→21:49)
[2016-12-20] MEDS: METHYLPREDNISOLONE INJ 40 MG/1 ML SDV IV SCH ×2 (12:06→21:50)
[2016-12-20] MEDS: ENOXAPARIN SODIUM INJ 100 MG/1 ML DISP.SYRIN SUBCUT SCH (12:06)
[2016-12-20] MEDS ORDERED: DEXTROSE 50%-WATER 25 GM/50 ML DISP.SYRIN IV PRN ×2 (13:13)
[2016-12-20] MEDS ORDERED: GLUCAGON,HUMAN RECOMB 1 MG INJ SUBCUT PRN (13:13)
[2016-12-20] MEDS ORDERED: DEXTROSE 40% GEL 15 GM TUBE PO PRN ×2 (13:13)
--- NOTE | 2016-12-20 13:19 | RADIOLOGY REPORT (SQ) ---
EXAM DESCRIPTION: VENOUS BILATERAL LOWER COMPLETED DATE/TIME: 12/20/2016 12:58 pm REASON FOR STUDY: asymmetric R>L swelling, poss DVT COMPARISON: None. TECHNIQUE: Dynamic and static gomes scale and color images acquired of both lower extremity venous sy stems. Selected spectral images acquired with additional compression and augmentation maneuvers. Imag es stored on PACS. LIMITATIONS: None. FINDINGS: RIGHT LEG COMMON FEMORAL AND FEMORAL: Normal phasicity, compression and augmentation. No visualized echogenic m aterial on gomes scale. No defects on color images. POPLITEAL: Normal compression and augmentation. No visualized echogenic material on gomes scale. No de fects on color images. CALF VESSELS: Normal compression and augmentation. No visualized echogenic material on gomes scale. No defects on color image. GSV AND SSV: Normal compression. No visualized echogenic material on gomes scale. No defects on color images. Reflux in the greater saphenous vein. ANY DEEP VENOUS INSUFFICIENCY: Not evaluated. ANY EVIDENCE OF POPLITEAL CYST: No. OTHER: No other significant finding. LEFT LEG COMMON FEMORAL AND FEMORAL: Normal phasicity, compression and augmentation. No visualized echogenic m aterial on gomes scale. No defects on color images. POPLITEAL: Normal compression and augmentation. No visualized echogenic material on gomes scale. No de fects on color images. CALF VESSELS: Normal compression and augmentation. No visualized echogenic material on gomes scale. No defects on color images. GSV AND SSV: Normal compression. No visualized echogenic material on gomes scale. No defects on color images. ANY DEEP VENOUS INSUFFICIENCY: Not evaluated. ANY EVIDENCE POPLITEAL CYST: No. OTHER: No other significant finding. IMPRESSION: NO EVIDENCE DVT OR SVT IN EITHER LEG. INCIDENTAL REFLUX IN THE GREATER SAPHENOUS VEIN. TECHNICAL DOCUMENTATION: JOB ID: [id number] [employer]- All Rights Reserved
--- NOTE | 2016-12-20 13:26 | PDOC PROGRESS REPORT ---
Subjective Progress Note for:: 12/20/16 Subjective:: stable As per ,family breathing improved last night Physical Exam Vital Signs: Temp Pulse Resp BP Pulse Ox 97.6 F 78 16 104/63 100 12/20/16 08:00 12/20/16 11:47 12/20/16 11:47 12/20/16 08:00 12/20/16 08:00 Intake & Output 12/19/16 12/20/16 12/21/16 06:59 06:59 06:59 Intake Total 2280 928 Output Total 1100 Balance 2280 -172 Weight 85.3 kg 85.3 kg General appearance: PRESENT: cooperative, disheveled, well-developed Head exam: PRESENT: atraumatic, normocephalic Eye exam: PRESENT: conjunctiva pale, EOMI Mouth exam: PRESENT: moist, neck supple Neck exam: ABSENT: carotid bruit, JVD, lymphadenopathy, thyromegaly Respiratory exam: PRESENT: decreased breath sounds, prolonged expiratory phas, rhonchi, symmetrical, unlabored, wheezes Cardiovascular exam: PRESENT: irregular rhythm Pulses: PRESENT: normal radial pulses GI/Abdominal exam: PRESENT: normal bowel sounds, soft. ABSENT: distended, guarding, mass, organolmegaly, rebound, tenderness Rectal exam: PRESENT: deferred Musculoskeletal exam: PRESENT: normal inspection Neurological exam: PRESENT: awake Skin exam: PRESENT: dry, warm Results Laboratory Results: 12/19/16 04:54 12/20/16 05:15 12/19/16 12/20/16 12/20/16 17:00 05:15 05:15 Carbonic Acid 0.96 L HCO3/H2CO3 Ratio 23:1 ABG pH 7.47 H ABG pCO2 32.0 L ABG pO2 90.8 ABG HCO3 22.6 ABG O2 Saturation 97.4 ABG Base Excess -0.4 FiO2 2L Sodium 125.6 L Potassium 5.0 Chloride 90 L Carbon Dioxide 26 Anion Gap 10 BUN 21 H Creatinine 1.04 Est GFR ( Amer) > 60 Est GFR (Non-Af Amer) > 60 Glucose 97 Calcium 9.3 Magnesium 1.9 TSH 0.95 Free T4 1.12 Impressions: Chest X-Ray 12/14/16 04:35 IMPRESSION: Right basilar consolidate-effusion with some interval diminished right lung volume. Chest CT 12/15/16 00:00 IMPRESSION: BULKY MEDIASTINAL AND HILAR LYMPHADENOPATHY AND RIGHT SUPRACLAVICULAR LYMPHADENOPATHY DETAILED ABOVE. FINDINGS ARE MOST CONCERNING FOR LYMPHOMA WITH METASTATIC DISEASE ALSO IN THE DIFFERENTIAL. LYMPH NODES SHOULD BE AMENABLE TO ENDOBRONCHIAL BIOPSY. MULTIFOCAL AIRSPACE DISEASE WITH CONSOLIDATION RIGHT LOWER LOBE AND TRACE PLEURAL EFFUSION LIKELY REPRESENTS A POSTOBSTRUCTIVE PNEUMONIA. CORONARY ARTERY DISEASE. Venous Doppler Study 12/20/16 00:00 IMPRESSION: NO EVIDENCE DVT OR SVT IN EITHER LEG. INCIDENTAL REFLUX IN THE GREATER SAPHENOUS VEIN. Assessment & Plan - Diagnosis (1) Acute exacerbation of chronic obstructive pulmonary disease (COPD) Is this a current diagnosis for this admission?: YesPlan: Improving (2) COPD (chronic obstructive pulmonary disease) Qualifiers: COPD type: COPD with acute exacerbation Qualified Code(s): J44.1 - Chronic obstructive pulmonary disease with (acute) exacerbation Is this a current diagnosis for this admission?: Yes (3) HTN (hypertension) Qualifiers: Hypertension type: essential hypertension Qualified Code(s): I10 - Essential (primary) hypertension Is this a current diagnosis for this admission?: Yes (4) Mediastinal lymphadenopathy Is this a current diagnosis for this admission?: YesPlan: Pending cardiac clearance expressed in chart :anesthesia is agreeable to to fiberoptic bronchoscopy on December 21 (5) Atrial fibrillation Qualifiers: Atrial fibrillation type: unspecified Qualified Code(s): I48.91 - Unspecified atrial fibrillation Is this a current diagnosis for this admission?: YesPlan: As per cardiology
[2016-12-20] MEDS: DILTIAZEM HCL/D5W 125 MG/125 ML RTUINJ IV PRN (17:46)
--- NOTE | 2016-12-20 21:18 | PROGRESS NOTE E ---
Progress Note NAME: RIRI DUMONT : 1945 AGE: 71Y DATE: 12/20/2016 ROOM: 330 Note earlier the patient was seen in the morning after he had an echocardiogram, and it seems that Anesthesia wants a preprocedure cardiovascular clearance or risk estimation. The patient is supposed to have bronchoscopy tomorrow. Hence, the patient is transferred to [facility]. Hence, the patient was seen down there. SUBJECTIVE: The patient still has shortness of breath and orthopnea, still on the nasal cannula. He denies any cough or sputum production. There is trace pedal edema. There is no PND. There is no chest pain or discomfort. The patient's atrial fibrillation is well controlled on p.o. Cardizem. OBJECTIVE: GENERAL: On examination, the patient appears to be chronically ill. VITAL SIGNS: He is afebrile. His pulse is 86 beats per minute, still in atrial fibrillation. Respirations are 20 per minute. O2 saturations are 98% on 2 L nasal cannula. His blood pressure is 114/50. HEENT: Head is atraumatic, normocephalic. Eyes: Pupils are equal, round, regular, reactive to light and accommodation. Extraocular movements normal. ENT is negative. NECK: Supple. There is no JVD. There is no goiter. Carotids are equal; there is no bruit. Trachea seems to be central. LUNGS: At rest, there are no accessory muscles of respiration used, and at rest, he does not appear to be short of breath. There is diminished air entry and prolonged expiration with occasional rhonchi. There is no wheezing present. On percussion, there is hyperresonance elsewhere. There is dullness and egophony in the right lower lobe. The rest of the lungs show a few scattered rhonchi as mentioned earlier. CARDIOVASCULAR: S1, S2 are heard. There is no S3 gallop. There is no S4 gallop. There is systolic murmur in left sternal border and the apex. There is no rub. S1 is of variable intensity. ABDOMEN: Soft, nontender. There is no hepatosplenomegaly. Bowel sounds are well heard. There are no tender areas or masses. EXTREMITIES: Femorals are diminished. There are no femoral bruits. Leg pulses are diminished. There is trace pedal edema bilaterally. There is no cyanosis or clubbing. There is no DVT or cellulitis. There is no calf tenderness. CENTRAL NERVOUS SYSTEM: The patient is conscious, awake, alert, oriented x3 with no focal deficit. PSYCHIATRIC: The patient does not appear to be anxious or depressed. His judgment and insight are intact. DIAGNOSTIC TESTS: His echocardiogram shows normal left ventricular ejection fraction. There is mild pulmonary hypertension. There is a small pericardial effusion without any echocardiographic evidence of tamponade. The patient's sodium has come up to 125.6, potassium 5.0. Chloride is 90. CO2 is 26. The patient's BUN is 21, creatinine 1.04. GFR is greater than 60. His glucose is 97, and calcium is 9.3. Magnesium is 1.9. The patient's thyroid function tests are normal. ASSESSMENT: 1. NEW ONSET OF ATRIAL FIBRILLATION, AT PRESENT CONTROLLED. Continue Cardizem. Since the patient is going to have bronchoscopy in the morning, the patient has been transferred to [facility], and the patient will be started on Cardizem infusion at 2.5 mg per hour. His p.o. Cardizem will be stopped for the bronchoscopy procedure since the patient will be n.p.o. 2. HYPOXEMIA AND DEHYDRATION SEEMS TO HAVE RESOLVED. O2 saturations are much better at 98% on 2 L. 3. MEDIASTINAL LYMPHADENOPATHY, RIGHT SUPRACLAVICULAR LYMPHADENOPATHY DUE TO DIFFERENTIAL DIAGNOSIS OF LYMPHOMA VERSUS METASTATIC DISEASE. The patient is going to have bronchoscopy and biopsy in the a.m. 4. PERICARDIAL EFFUSION WITHOUT ANY TAMPONADE MOST LIKELY MALIGNANT. 5. RIGHT LOWER LOBE PNEUMONIA MOST LIKELY POST OBSTRUCTIVE. Would recommend staring the patient on antibiotics. 6. HYPERTENSION. Blood pressure well controlled. 7. ANXIETY. At present, patient does not appear to be anxious, but the patient is on Ativan p.r.n. The patient's steroids have been decreased. 8. HISTORY OF INSOMNIA. The patient will be getting Ambien p.r.n. 9. HISTORY OF CORONARY ARTERY DISEASE. No IL or angina. Not clear whether the patient has had a cardiac workup. At present, in view of the patient's scheduled bronchoscopy and the patient's pericardial effusion in a setting which is more conducive to malignant pericardial effusion, would be hesitant to start the patient on full-dose anticoagulation, and hence, we will hold off. Also, the patient's platelets are slightly low at 126 yesterday, and hence, this has been held. The patient would be an acceptable cardiac risk for this bronchoscopic biopsy of the lymph nodes to establish a definitive diagnosis. We will follow with you. 10.PRE-PROCEDURAL CARDIAC EVALUUATION EXAM. Note that after the initial visit upstairs and on the fourth floor, the patient was seen from 6:00 p.m. to 6:30 p.m. in the IMCU setting later on today. Note more than 50% of the time was spent in direct patient care and explanation of the findings of the echocardiogram to the patient. Also, the assessment of risk for the patient. He should be an acceptable risk for this procedure but need to watch out for lung/pulmonary complications. Discussed with the other caregivers on the case. DICTATING PHYSICIAN: DEANDRA BOSTON M.D. [id number] 1947 KATHYAY#: [id number] ID: [id number] JOB#: [id number] ACCT: [id number] cc: > MTDD
--- NOTE | 2016-12-20 21:44 | XCELERA REPORT ---
[address] [address] Transthoracic Echocardiogram Report Name: RIRI DUMONT Age: 71 yrs Gender: Male : 1945 Patient Status: Inpatient Patient Location: 4S\S\428\S\A Study Date: 12/20/2016 09:39 AM Height: 67 in Weight: 188 lb BSA: 2.0 m2 Procedure: A two-dimensional transthoracic echocardiogram with color flow and Doppler was performed. The study was technically difficult with many images being suboptimal in quality. Reason For Study: new onset afib History: new onset afib. Ordering Physician: DUONG LINARES Performed By: Silvano Ventura Interpretation Summary The left ventricle is normal in size. There is mild concentric left ventricular hypertrophy. LV EF is > than 65% Left ventricular systolic function is normal. The left ventricular wall motion is normal. There is no thrombus. The left atrial size is normal. There is no evidence of mitral valve prolapse. There is no mitral valve stenosis. There is a trace to mild amount of mitral regurgitation There is no aortic valvular vegetation. There is no aortic valve stenosis There is no LVOT obstruction. No aortic regurgitation is present. There is no tricuspid stenosis. There is a moderate amount of tricuspid regurgitation There is mild pulmonary hypertension by echo RVSP is 37mm of Hg , with RA mean of 10. The aortic root is mildly dilated Small pericardial effusion. There are no echocardiographic or Doppler indications for cardiac tamponade MMode/2D Measurements \T\ Calculations RVDd: 2.5 cm LVIDd: 4.5 cm FS: 43.6 % Ao root diam: 4.0 cm IVSd: 1.2 cm LVIDs: 2.5 cm EDV(Teich): 92.3 ml LVPWd: 1.2 cm ESV(Teich): 23.2 ml Ao root area: 12.8 cm2 EF(Teich): 74.9 % LA dimension: 3.9 cm Doppler Measurements \T\ Calculations MV E max karyn: MV P1/2t max karyn: Ao V2 max: LV V1 max P.0 cm/sec 115.7 cm/sec 123.5 cm/sec 3.4 mmHg MV P1/2t: 55.4 msec Ao max PG: LV V1 max: 6.1 mmHg 92.1 cm/sec MVA(P1/2t): 4.0 cm2 MV dec slope: 611.2 cm/sec2 PA V2 max: PI end-d karyn: TR max karyn: RAP systole: 65.6 cm/sec 106.7 cm/sec 260.2 cm/sec 10.0 mmHg PA max P.7 mmHg TR max P.1 mmHg RVSP(TR): 37.1 mmHg Left Ventricle The left ventricle is normal in size. There is mild concentric left ventricular hypertrophy. LV EF is > than 65%. Left ventricular systolic function is normal. LV diastolic function could not be adequately assessed due to atrial fibrilation. The left ventricular wall motion is normal. There is no thrombus. Right Ventricle The right ventricle is normal in size and function. Atria The right atrium is normal. The left atrial size is normal. Mitral Valve There is no evidence of mitral valve prolapse. There is no vegetation seen on the mitral valve. There is no mitral valve stenosis. There is a trace to mild amount of mitral regurgitation. Aortic Valve There is no aortic valvular vegetation. There is no aortic valve stenosis. There is no LVOT obstruction. No aortic regurgitation is present. Tricuspid Valve There is no tricuspid stenosis. There is a moderate amount of tricuspid regurgitation. There is mild pulmonary hypertension by echo. RVSP is 37mm of Hg , with RA mean of 10. Pulmonic Valve There is no pulmonic valvular stenosis. There is a trace amount of pulmonic regurgitation. Great Vessels The aortic root is mildly dilated. Effusions Small pericardial effusion. There are no echocardiographic or Doppler indications for cardiac tamponade. : DUONG LINARES > Lorie Dodge
[2016-12-21] MEDS: IPRATROPIUM/ALBUTEROL 0.5-2.5 MG/3 ML AMPUL NEB SCH ×4 (08:19→20:27)
[2016-12-21] MEDS: METHYLPREDNISOLONE INJ 40 MG/1 ML SDV IV SCH ×2 (10:13→21:14)
[2016-12-21] MEDS: FAMOTIDINE 20 MG TABLET PO SCH ×2 (10:14→21:14)
[2016-12-21] MEDS ORDERED: PROPOFOL INJ 200 MG/20 ML VIAL IV ONE (10:21)
[2016-12-21] MEDS ORDERED: MIDAZOLAM 2 MG/2 ML INJ ONE (10:21)
[2016-12-21] MEDS ORDERED: FENTANYL CITRATE INJ/PF 250 MCG/5 ML AMPULE ONE (10:21)
[2016-12-21] MEDS ORDERED: EPHEDRINE SULFATE INJ 50 MG/1 ML AMPULE ONE (10:22)
[2016-12-21 11:00] LABS: ABSOLUTE LYMPHOCYTES (AUTO) 0.8 10^3/uL (0.5-4.7); ABSOLUTE MONOCYTES (AUTO) 0.9 10^3/uL (0.1-1.4); ABSOLUTE NEUT (AUTO) 9.9 10^3/uL (1.7-8.2); BASOPHILS % (AUTO) 0.1 % (0-2); HEMATOCRIT 36.1 % (37.9-51.0); HGB HCT DIFFERENCE -0.1; LYMPHOCYTES % (AUTO) 6.7 % (13-45); MEAN CORPUSCULAR HEMOGLOBIN 28.5 pg (27.0-33.4); MEAN CORPUSCULAR HGB CONC 33.3 g/dL (32.0-36.0); MEAN CORPUSCULAR VOLUME 86 fl (80-97); MONOCYTES % (AUTO) 7.5 % (3-13); RED BLOOD COUNT 4.22 10^6/uL (4.35-5.55); RED CELL DISTRIBUTION WIDTH 14.5 % (11.5-14.0); SEGMENTED NEUTROPHILS % (AUTO) 85.7 % (42-78); WHITE BLOOD COUNT 11.5 10^3/uL (4.0-10.5)
[2016-12-21 11:12] LABS: ANION GAP 6 (5-19); BLOOD UREA NITROGEN 26 mg/dL (7-20); CALCIUM 9.4 mg/dL (8.4-10.2); CARBON DIOXIDE 29 mmol/L (22-30); CHLORIDE 92 mmol/L (98-107); CREATININE RESULT 1.12 mg/dL (0.52-1.25); GLUCOSE 102 mg/dL (75-110); SODIUM 127.4 mmol/L (137-145)
--- NOTE | 2016-12-21 12:32 | PDOC PROGRESS REPORT ---
Subjective Progress Note for:: 12/21/16 Subjective:: stable Physical Exam Vital Signs: Temp Pulse Resp BP Pulse Ox 98.2 F 98 18 117/70 100 12/21/16 10:24 12/21/16 10:24 12/21/16 10:24 12/21/16 10:24 12/21/16 10:24 Intake & Output 12/20/16 12/21/16 12/22/16 06:59 06:59 06:59 Intake Total 928 280 Output Total 1100 275 Balance -172 5 Weight 85.3 kg 91.1 kg General appearance: PRESENT: no acute distress, cooperative, disheveled, well- developed, well-nourished Head exam: PRESENT: atraumatic, normocephalic Eye exam: PRESENT: conjunctiva pale, EOMI Mouth exam: PRESENT: moist, neck supple, tongue midline Neck exam: ABSENT: carotid bruit, JVD, lymphadenopathy, thyromegaly Respiratory exam: PRESENT: decreased breath sounds, prolonged expiratory phas, rhonchi, symmetrical, unlabored Cardiovascular exam: PRESENT: irregular rhythm Pulses: PRESENT: normal radial pulses GI/Abdominal exam: PRESENT: normal bowel sounds, soft. ABSENT: distended, guarding, mass, organolmegaly, rebound, tenderness Rectal exam: PRESENT: deferred Musculoskeletal exam: PRESENT: normal inspection Neurological exam: PRESENT: alert, awake Psychiatric exam: PRESENT: normal mood Skin exam: PRESENT: dry, warm Results Laboratory Results: 12/21/16 10:24 12/21/16 10:24 12/21/16 12/21/16 10:24 10:24 WBC 11.5 H RBC 4.22 L Hgb 12.0 L Hct 36.1 L MCV 86 MCH 28.5 MCHC 33.3 RDW 14.5 H Plt Count 113 L Seg Neutrophils % 85.7 H Lymphocytes % 6.7 L Monocytes % 7.5 Eosinophils % 0.0 Basophils % 0.1 Absolute Neutrophils 9.9 H Absolute Lymphocytes 0.8 Absolute Monocytes 0.9 Absolute Eosinophils 0.0 Absolute Basophils 0.0 Sodium 127.4 L Potassium 5.0 Chloride 92 L Carbon Dioxide 29 Anion Gap 6 BUN 26 H Creatinine 1.12 Est GFR ( Amer) > 60 Est GFR (Non-Af Amer) > 60 Glucose 102 Calcium 9.4 Impressions: Chest X-Ray 12/14/16 04:35 IMPRESSION: Right basilar consolidate-effusion with some interval diminished right lung volume. Chest CT 12/15/16 00:00 IMPRESSION: BULKY MEDIASTINAL AND HILAR LYMPHADENOPATHY AND RIGHT SUPRACLAVICULAR LYMPHADENOPATHY DETAILED ABOVE. FINDINGS ARE MOST CONCERNING FOR LYMPHOMA WITH METASTATIC DISEASE ALSO IN THE DIFFERENTIAL. LYMPH NODES SHOULD BE AMENABLE TO ENDOBRONCHIAL BIOPSY. MULTIFOCAL AIRSPACE DISEASE WITH CONSOLIDATION RIGHT LOWER LOBE AND TRACE PLEURAL EFFUSION LIKELY REPRESENTS A POSTOBSTRUCTIVE PNEUMONIA. CORONARY ARTERY DISEASE. Venous Doppler Study 12/20/16 00:00 IMPRESSION: NO EVIDENCE DVT OR SVT IN EITHER LEG. INCIDENTAL REFLUX IN THE GREATER SAPHENOUS VEIN. Assessment & Plan - Diagnosis (1) Acute exacerbation of chronic obstructive pulmonary disease (COPD) Is this a current diagnosis for this admission?: YesPlan: at/near baseline (2) COPD (chronic obstructive pulmonary disease) Qualifiers: COPD type: COPD with acute exacerbation Qualified Code(s): J44.1 - Chronic obstructive pulmonary disease with (acute) exacerbation Is this a current diagnosis for this admission?: Yes (3) HTN (hypertension) Qualifiers: Hypertension type: essential hypertension Qualified Code(s): I10 - Essential (primary) hypertension Is this a current diagnosis for this admission?: Yes (4) Mediastinal lymphadenopathy Is this a current diagnosis for this admission?: YesPlan: Bronchoscopy today (5) Atrial fibrillation Qualifiers: Atrial fibrillation type: unspecified Qualified Code(s): I48.91 - Unspecified atrial fibrillation Is this a current diagnosis for this admission?: YesPlan: Stable
--- NOTE | 2016-12-21 12:36 | Operative Report ---
Operative Report DATE OF SURGERY: 12/21/16 Operative Report: Patient keep n.p.o. 14 hours prior to procedure taken in the preoperative area where consents were reviewed and signed an IV access confirmed patient was then taken to the bronchoscopy suite and intubated for anesthesiology. Then using a T size [employer] bronchoscope her tracheobronchial tree was explored. There was splaying of the frankie. There is mucosal corrugations throughout the left and right hemithorax. Diffuse submucosal edema from the right upper lobe and the right bronchus intermedius right middle lobe and the right lower lobe. Lavage fluid, transbronchial biopsies and Du needle biopsy was taken of the right lower lobe of the lung. Patient tolerated the procedure well specimens have been sent to the lab for appropriate cultures and studies postprocedure chest x- ray is in progress PREOPERATIVE DIAGNOSIS: Right lung mass POSTOPERATIVE DIAGNOSIS: Same OPERATION: Fiberoptic bronchoscopy with bronchoalveolar lavage transbronchial biopsy and Du needle biopsy SURGEON: JULIETTE PARKER ANESTHESIA: GA TISSUE REMOVED OR ALTERED: Transbronchial biopsies from the right lower lobe of the lung Du needle biopsies from the right lower lobe with a lung COMPLICATIONS: None ESTIMATED BLOOD LOSS: 5 mL
--- NOTE | 2016-12-21 13:10 | RADIOLOGY REPORT (SQ) ---
EXAM DESCRIPTION: CHEST SINGLE VIEW; NO CHG FLUORO COMPLETED DATE/TIME: 12/21/2016 12:57 pm REASON FOR STUDY: BRONCHOSCOPY RT LUNG ASSISTED WITH FLUORO IN OR COMPARISON: CT chest 12/15/2016 FLUOROSCOPY TIME: 0.9 minutes 4 series of digital chest images saved to PACS. TECHNIQUE: Intra-operative images acquired during surgical procedure to evaluate progress. NUMBER OF IMAGES: Cine fluoroscopic images. LIMITATIONS: None. FINDINGS: Intra procedural imaging and fluoroscopy during bronchoscopy. Please see the operative re port for further details IMPRESSION: Intra procedural imaging and fluoro COMMENT: Quality ID [id number]: Final reports for procedures using fluoroscopy that document radiation exp osure indices, or exposure time and number of fluorographic images (if radiation exposure indices are not available) Please consult full operative report of the attending physician for description of the procedure. TECHNICAL DOCUMENTATION: JOB ID: [id number] [employer]- All Rights Reserved
[2016-12-21] MEDS ORDERED: PROPOFOL 100 ML IV ONE (13:30)
[2016-12-21] MEDS ORDERED: FUROSEMIDE INJ/PF 20 MG/2 ML SDV IV ONE (13:45)
--- NOTE | 2016-12-21 13:45 | RADIOLOGY REPORT (SQ) ---
EXAM DESCRIPTION: CHEST SINGLE VIEW COMPLETED DATE/TIME: 12/21/2016 1:33 pm REASON FOR STUDY: S/P Lung Biospy FOR SUNDAY @1200 COMPARISON: CT chest 12/15/2016 Two-view chest 12/05/2016 EXAM PARAMETERS: NUMBER OF VIEWS: One view. TECHNIQUE: Single frontal radiographic view of the chest acquired. RADIATION DOSE: NA LIMITATIONS: None. FINDINGS: LUNGS AND PLEURA: No pneumothorax post right bronchoscopy. There is still partial collapse of the right lower lobe with volume loss and consolidation, similar c ompared to CT chest 12/15/2016. There is now left lower lobe volume loss and consolidation atelectasis versus pneumonia. This is new compared to CT chest 12/15/2016. MEDIASTINUM AND HILAR STRUCTURES: Fullness at the left hilum from left hilar adenopathy HEART AND VASCULAR STRUCTURES: Heart normal in size. Normal vasculature. BONES: No acute findings. HARDWARE: Endotracheal tube tip 4 cm above the frankie OTHER: No other significant finding. IMPRESSION: Unchanged right lower lobe volume loss and consolidation Unchanged left hilar enlargement Interval development of collapse and consolidation in the left lower lobe. Endotracheal tube tip midtrachea. TECHNICAL DOCUMENTATION: JOB ID: [id number]
[2016-12-21] MEDS ORDERED: FUROSEMIDE INJ/PF 20 MG/2 ML SDV ONE (13:48)
[2016-12-21] MEDS ORDERED: VECURONIUM BROMIDE INJ 10 MG VIAL IV ONE (14:16)
[2016-12-21] MEDS ORDERED: NEOSTIGMINE METHYLSULFATE 10 MG/10 ML VIAL ONE (14:16)
[2016-12-21] MEDS ORDERED: GLYCOPYRROLATE INJ 0.4 MG/2 ML VIAL ONE (14:16)
[2016-12-21] MEDS ORDERED: SUCCINYLCHOLINE CHLORIDE INJ 200 MG/10 ML VIAL ONE (14:16)
--- NOTE | 2016-12-21 14:23 | PDOC PROGRESS REPORT ---
Subjective Progress Note for:: 12/21/16 Subjective:: reason for visit: f/u new onset afib, COPD exac, hypoxia, adenopathy hospital course: per other's notes - "RIRI DUMONT is a 71 year old male who was an active smoker until 1 month ago when he developed worsening respiratory symptoms. He has had progressive cough, wheezing and shortness of breath for the past two months. He has been seen as an outpatient by his primary care team at Dr. Klein' office. I have obtained additional information: He has lost 40 pounds over the past few months. He had an out-patient CT chest on 2016 which showed extensive mediastinal adenopathy and other findings suggestive of metastatic cancer or lymphoma. There had not been enough time to address those findings before this admission. The patient's symptoms significantly worsened over the week SIGN MAINTENANCE. On the day of admission he was barely able to breathe and presented to the emergency department. He was found to have significant wheezing and chest congestion. He was afebrile. His white blood count was 7.3. His chest x-ray showed right basilar consolidate-effusion with some interval diminished right lung volume. Of note, he has a known right pleural effusion. The patient was admitted with acute exacerbation of COPD and continues to improve with IV fluids, antibiotics, bronchodilators, corticosteroids, and oxygen supplementation. He feels better at rest but still c/o dyspnea on minimal exertion. The patient has been seen by Dr. White of pulmonology and I have discussed the case with him. A follow-up CT of the chest was done on and bronchoscopy is planned for Tuesday 12/19. Overall, he feels better with the respiratory treatments but is still significantly REESE." ekg performed Sunday night for reasons not clear to me at this time but shows new onset afib, confirmed on repeat this morning. he is asymptomatic as to palpitations, still feels fatigued and breathless with minimal exertion but denies chest pain, cough with phlegm, fever/chills. his nurse and indicate he is a bit confused this morning, tried to pour his gatorade onto his IV site b/c he "needed to water the garden". as of Sunday his mental state has cleared back to baseline. His HR is better controlled on short acting cardizem and his breathing is much improved. He remains on cardizem gtt at only 2.5mg/hr with good control of his HR while he awaits bronch. ROS: denies chest pain, palpitations, n/v/d, abdominal pain, still some wheezing and dry hacking cough, total 10 systems reviewed, remaining systems negative Physical Exam Vital Signs: Temp Pulse Resp BP Pulse Ox 98.2 F 98 18 117/70 100 12/21/16 10:24 12/21/16 10:24 12/21/16 10:24 12/21/16 10:24 12/21/16 10:24 Intake & Output 12/20/16 12/21/16 12/22/16 06:59 06:59 06:59 Intake Total 928 280 Output Total 1100 275 Balance -172 5 Weight 85.3 kg 91.1 kg General appearance: PRESENT: no acute distress, well-developed, well-nourished Head exam: PRESENT: atraumatic, normocephalic Eye exam: ABSENT: conjunctival injection, scleral icterus Mouth exam: PRESENT: moist, neck supple Neck exam: ABSENT: JVD, tracheal deviation Respiratory exam: PRESENT: clear to auscultation stewart, unlabored. ABSENT: accessory muscle use Cardiovascular exam: PRESENT: irregular rhythm. ABSENT: tachycardia Pulses: PRESENT: normal radial pulses, normal dorsalis pedis pul GI/Abdominal exam: PRESENT: normal bowel sounds, soft. ABSENT: tenderness Extremities exam: PRESENT: pedal edema. ABSENT: calf tenderness Musculoskeletal exam: PRESENT: ambulatory, full ROM Neurological exam: PRESENT: alert, awake, oriented to person, oriented to place , oriented to time, oriented to situation Psychiatric exam: PRESENT: appropriate affect, normal mood Skin exam: PRESENT: warm. ABSENT: dry Results Laboratory Results: 12/21/16 10:24 12/21/16 10:24 12/21/16 12/21/16 10:24 10:24 WBC 11.5 H RBC 4.22 L Hgb 12.0 L Hct 36.1 L MCV 86 MCH 28.5 MCHC 33.3 RDW 14.5 H Plt Count 113 L Seg Neutrophils % 85.7 H Lymphocytes % 6.7 L Monocytes % 7.5 Eosinophils % 0.0 Basophils % 0.1 Absolute Neutrophils 9.9 H Absolute Lymphocytes 0.8 Absolute Monocytes 0.9 Absolute Eosinophils 0.0 Absolute Basophils 0.0 Sodium 127.4 L Potassium 5.0 Chloride 92 L Carbon Dioxide 29 Anion Gap 6 BUN 26 H Creatinine 1.12 Est GFR ( Amer) > 60 Est GFR (Non-Af Amer) > 60 Glucose 102 Calcium 9.4 Impressions: Chest X-Ray 12/14/16 04:35 IMPRESSION: Right basilar consolidate-effusion with some interval diminished right lung volume. Chest CT 12/15/16 00:00 IMPRESSION: BULKY MEDIASTINAL AND HILAR LYMPHADENOPATHY AND RIGHT SUPRACLAVICULAR LYMPHADENOPATHY DETAILED ABOVE. FINDINGS ARE MOST CONCERNING FOR LYMPHOMA WITH METASTATIC DISEASE ALSO IN THE DIFFERENTIAL. LYMPH NODES SHOULD BE AMENABLE TO ENDOBRONCHIAL BIOPSY. MULTIFOCAL AIRSPACE DISEASE WITH CONSOLIDATION RIGHT LOWER LOBE AND TRACE PLEURAL EFFUSION LIKELY REPRESENTS A POSTOBSTRUCTIVE PNEUMONIA. CORONARY ARTERY DISEASE. Venous Doppler Study 12/20/16 00:00 IMPRESSION: NO EVIDENCE DVT OR SVT IN EITHER LEG. INCIDENTAL REFLUX IN THE GREATER SAPHENOUS VEIN. Assessment & Plan - Diagnosis (1) Atrial fibrillation Qualifiers: Atrial fibrillation type: unspecified Qualified Code(s): I48.91 - Unspecified atrial fibrillation Is this a current diagnosis for this admission?: YesPlan: new onset, rate better controlled now on cardizem, no prior hx of same. d/w'd cardiology, ok for conscious sedation and to hold full dose lovenox for bronch by Dr White; echo shows small pericardial effusion and moderate TR; and dopplers of lower ext's due to c/o asymmetric swelling R>L. minimize use of albuterol as tolerated. 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 (3) Acute exacerbation of chronic obstructive pulmonary disease (COPD) Is this a current diagnosis for this admission?: YesPlan: improved but not back to baseline; titrate medrol as this may be confounding his volume status and Na levels. (4) HTN (hypertension) Qualifiers: Hypertension type: essential hypertension Qualified Code(s): I10 - Essential (primary) hypertension Is this a current diagnosis for this admission?: Yes (5) Hypoxemia Is this a current diagnosis for this admission?: Yes (6) Mediastinal lymphadenopathy Is this a current diagnosis for this admission?: YesPlan: d/w'd dr white who will plan with anesthesiology for bronch today. - Time Time Spent with patient: 25-34 minutes - Plan Summary Plan Summary: monitor after bronchoscopy for resp distress or worsening HR.
[2016-12-21] MEDS ORDERED: NOREPINEPHRINE BITARTRATE INJ/PF 4 MG/4 ML SDV IV ONE (14:31)
[2016-12-21 14:33] LABS: ARTERIAL BLOOD BASE EXCESS -4.5 mmol/L; ARTERIAL BLOOD O2 SATURATION 92.7 % (94-98)
[2016-12-21 14:43] LABS: FLUID APPEARANCE CLOUDY; FLUID RBC DILUENT USED SALINE; FLUID RBC DILUTION FACTOR 20; FLUID RBC SIDE 1 128; FLUID RBC SIDE 2 136; FLUID TYPE BRONCHIAL LAVAGE; TOTAL RBC SQUARES COUNTED FLD 25
[2016-12-21] MEDS: DEXTROSE 5%-WATER 250 ML with NOREPINEPHRINE BITARTRATE 4 MG IV PRN ×4 (14:45→21:14)
[2016-12-21] MEDS: PROPOFOL 100 ML IV PRN ×3 (15:43→23:52)
[2016-12-21] MEDS: MIDAZOLAM 2 MG/2 ML INJ IV PRN ×2 (16:34→21:12)
[2016-12-21] MEDS ORDERED: PHENYLEPHRINE HCL INJ/PF 10 MG/1 ML SDV ONE (20:53)
[2016-12-21] MEDS: DEXTROSE 5%-WATER 250 ML with PHENYLEPHRINE HCL 40 MG IV PRN ×2 (21:12)
--- NOTE | 2016-12-21 22:14 | PROGRESS NOTE E ---
Progress Note NAME: RIRI DUMONT : 1945 AGE: 71Y DATE: 12/21/2016 ROOM: 611 SUBJECTIVE: The patient was seen late in the evening after the patient came back from his bronchial biopsy. After the bronchial biopsy he was extubated but due to respiratory difficulty, was reintubated and then admitted to the ICU. Initially they started him on propofol drip in the ICU at which time his blood pressure dropped to 70, and his Cardizem drip which was at 5 mg/hr was stopped. Subsequently the blood pressure came up and it went up to 110 with the patient being in atrial fibrillation with a blood pressure of 113/78 and Cardizem was restarted. There was no ventricular arrhythmia seen. There was no AV block seen. The patient is well-sedated and is not fighting the ventilator. OBJECTIVE: HEENT: Head is atraumatic, normocephalic. Eyes: Pupils are equal and reactive to light. The rest of the ENT not examined due to patient being intubated and sedated. NECK: Supple. There is no JVD. Carotids are equal. There is no bruit. There is no lymphadenopathy. There is no goiter. Trachea is central. LUNGS: Show bilateral rhonchi and wheezing all over in both lung chavez. CARDIOVASCULAR: S1, S2 are heard. There is variable S1 in intensity. There is no S3 gallop. There is no S4 gallop. There is systolic murmur in left sternal border and the apex. There is no rub. ABDOMEN: Soft, nontender. There is no hepatosplenomegaly. Bowel sounds are well heard. EXTREMITIES: Femorals are diminished. There are no femoral bruits. Leg pulses are diminished. There is no pedal edema today. There is no cyanosis or clubbing. There is no DVT or cellulitis. CENTRAL NERVOUS SYSTEM: Not examined. PSYCHIATRIC: Not examined. DIAGNOSTIC TESTS: The patient's 24-hr intake has been 280 mL but since the patient has been kept n.p.o., output is 275 mL. The patient's chest x-ray this morning shows unchanged right lower lobe volume loss and consolidation, unchanged left hilar enlargement. Dr. White's operative note noted. The patient's white count is 11,500, hemoglobin is 12, hematocrit is 36.1, and the platelet count is 113,000. The patient's sodium is 127.4, potassium 5.0, chloride 92, CO2 is 29, patient's BUN is 26, creatinine is 1.12. GFR is greater than 60, glucose is 102, calcium is 9.4. The patient's ABG show at 2:15 p.m. today, a pH of 7.25, PCO2 55.1, PO2 is 75.9, and O2 sats are 92.7 with an FiO2 of 60%. IMPRESSION: 1. RESPIRATORY FAILURE, HYPERCAPNIC AND HYPOXEMIC, POST BRONCHIAL BIOPSY. 2. STATUS POST BRONCHIAL BIOPSY OF THE RIGHT LOWER LOBE LUNG MASS. 3. ATRIAL FIBRILLATION WITH FAST VENTRICULAR RESPONSE. The patient is back on Cardizem IV at 5 mg/hr. 4. MEDIASTINAL LYMPHADENOPATHY AND RIGHT CLAVICULAR LYMPHADENOPATHY. Differential diagnosis of lymphoma with metastatic disease. The patient has had biopsy, await biopsy results. 5. RIGHT LOWER LOBE PNEUMONIA, MOST LIKELY POSTOBSTRUCTIVE VERSUS LUNG MASS. Request starting the patient on antibiotics. 6. HYPERTENSION. Blood pressure dropped after the patient was started on propofol. At present blood pressure seems to be on the low normal side and the patient at present being started on Cardizem at 5 mg/hr again. 7. ANXIETY. At present the patient is intubated. 8. HISTORY OF CORONARY ARTERY DISEASE. No OH or angina. Not clear whether the patient requiring cardiac workup. 9. PERICARDIAL EFFUSION. Most likely malignant. Note that there is no tamponade by pericardial effusion. 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 RECOMMENDATION: Will continue the patient on Cardizem at 5 mg/hr and watch the patient's heart rate and blood pressure. Will also see if we can wean the patient off Levophed which is at 12 mcg/min. This has been started without an origin in the OR after the patient had to be reintubated and patient's blood pressure dropped after propofol was started in the OR after the bronchoscopy. Will decrease the patient's Cardizem to 2.5 mg/hr. We will see if tomorrow we can start the patient on Heri-Synephrine and slowly wean the patient off norepinephrine. I have instructed the nurse to try to wean the patient off norepinephrine. NOTE: Thirty-five minutes spent on this patient with more than 50% of the time was spent in direct patient care, review of the patient's medications and adjustment of the patient's medications including IV pressor and the patient's Cardizem to keep the heart rate and blood pressure at optimal levels. Will follow the patient. This is a highly complex decision making situation in this case. Continue steroids. Would strongly recommend starting the patient on antibiotics. DICTATING PHYSICIAN: DEANDRA BOSTON M.D. [id number] PHY#: [id number] ID: [id number] JOB#: [id number] ACCT: [id number] cc: >
[2016-12-21] MEDS: AMPICILLIN SODIUM/SULBACTAM NA 3 GM in NORMAL SALINE 100 ML IV SCH (23:51)
[2016-12-22] MEDS: PROPOFOL 100 ML IV PRN ×7 (02:52→22:57)
[2016-12-22] MEDS: DEXTROSE 5%-WATER 250 ML with PHENYLEPHRINE HCL 40 MG IV PRN ×4 (02:53→17:11)
[2016-12-22 05:17] LABS: ANION GAP 7 (5-19); BLOOD UREA NITROGEN 29 mg/dL (7-20); CALCIUM 8.7 mg/dL (8.4-10.2); CARBON DIOXIDE 25 mmol/L (22-30); CHLORIDE 94 mmol/L (98-107); CREATINE KINASE 32 U/L (55-170); CREATININE RESULT 1.33 mg/dL (0.52-1.25); GLUCOSE 143 mg/dL (75-110); MAGNESIUM 2.1 mg/dL (1.6-2.3); PHOSPHORUS 5.1 mg/dL (2.5-4.5); POTASSIUM 5.2 mmol/L (3.6-5.0); SODIUM 126.1 mmol/L (137-145)
[2016-12-22 05:29] LABS: CREATINE KINASE MB 0.87 ng/mL (<4.55); TROPONIN I 0.04 ng/mL
[2016-12-22] MEDS: AMPICILLIN SODIUM/SULBACTAM NA 3 GM in NORMAL SALINE 100 ML IV SCH ×3 (05:36→17:10)
[2016-12-22 05:45] LABS: HEMOGLOBIN 11.7 g/dL (13.5-17.0); HGB HCT DIFFERENCE 0.1; MEAN CORPUSCULAR HEMOGLOBIN 28.6 pg (27.0-33.4); MEAN CORPUSCULAR HGB CONC 33.3 g/dL (32.0-36.0); MEAN CORPUSCULAR VOLUME 86 fl (80-97); RED BLOOD COUNT 4.08 10^6/uL (4.35-5.55); RED CELL DISTRIBUTION WIDTH 14.4 % (11.5-14.0); WHITE BLOOD COUNT 19.8 10^3/uL (4.0-10.5)
[2016-12-22 05:50] LABS: BASOPHILS % (MANUAL) 0 % (0-2); EOSINOPHILS % (MANUAL) 0 % (0-6); LYMPHOCYTES % (MANUAL) 8 % (13-45); TOTAL CELLS COUNTED 100
[2016-12-22 05:51] LABS: RBC MORPHOLOGY COMMENT NORMO-CYTIC/CHROMIC; TOXIC GRANULATION SLIGHT; TOXIC VACUOLATION PRESENT
[2016-12-22 05:58] LABS: ARTERIAL BLOOD BASE EXCESS -0.7 mmol/L; ARTERIAL BLOOD O2 SATURATION 98.3 % (94-98)
[2016-12-22] MEDS: IPRATROPIUM/ALBUTEROL 0.5-2.5 MG/3 ML AMPUL NEB SCH ×4 (07:20→20:10)
--- NOTE | 2016-12-22 07:22 | RADIOLOGY REPORT (SQ) ---
EXAM DESCRIPTION: CHEST SINGLE VIEW COMPLETED DATE/TIME: 12/22/2016 6:55 am REASON FOR STUDY: Intubated COMPARISON: Chest x-ray 12/21/2016. CT chest 12/15/2016. EXAM PARAMETERS: NUMBER OF VIEWS: One view TECHNIQUE: Single frontal radiograph of the chest. RADIATION DOSE: N/A LIMITATIONS: None. FINDINGS: TEMPORARY SUPPORT DEVICES:ETT in expected location. NG tube courses below the left esperanza-d iaphragm in to the stomach. LUNGS AND PLEURA: Persistent partial collapse of the right lower lobe with volume loss and consolidat ion. Interval decrease in the left basilar airspace opacity. No pneumothorax. MEDIASTINUM AND HILAR STRUCTURES: Bilateral perihilar fullness, likely corresponding to known adenopa thy. HEART AND VASCULAR STRUCTURES: The heart remains enlarged. No overt vascular congestion. BONES: No acute findings. IMPRESSION: Persistent partial collapse of the right lower lobe with volume loss and consolidation. Interval improvement in the aeration of the left lung with decrease in the left basilar airspace opac ity. Cardiomegaly. Support devices in expected locations. TECHNICAL DOCUMENTATION: JOB ID: [id number] [employer]- All Rights Reserved
--- NOTE | 2016-12-22 08:50 | EKG REPORT ---
SEVERITY:- ABNORMAL ECG - ATRIAL FIBRILLATION, V-RATE 62-96 PROBABLE ANTEROSEPTAL INFARCT, AGE INDETERM : Confirmed by: Rachelle Gerard 22-Dec-2016 08:49:16
--- NOTE | 2016-12-22 10:06 | PDOC PROGRESS REPORT ---
Subjective Progress Note for:: 12/22/16 Subjective:: intubated Physical Exam Vital Signs: Temp Pulse Resp BP Pulse Ox 97.2 F 92 12 102/68 99 12/22/16 07:56 12/22/16 07:56 12/22/16 07:56 12/22/16 07:56 12/22/16 07:56 Intake & Output 12/21/16 12/22/16 12/23/16 06:59 06:59 06:59 Intake Total 280 1235 Output Total 275 1055 210 Balance 5 180 -210 Weight 91.1 kg 92.2 kg General appearance: PRESENT: no acute distress, disheveled, well-developed Head exam: PRESENT: atraumatic, normocephalic Eye exam: PRESENT: conjunctiva pink Mouth exam: PRESENT: dry mucosa, neck supple, other - ET tube in place Neck exam: ABSENT: carotid bruit, JVD, lymphadenopathy, thyromegaly Respiratory exam: PRESENT: decreased breath sounds, prolonged expiratory phas, rales Cardiovascular exam: PRESENT: RRR, +S1, +S2 Pulses: PRESENT: normal radial pulses GI/Abdominal exam: PRESENT: normal bowel sounds, soft. ABSENT: distended, guarding, mass, organolmegaly, rebound, tenderness Rectal exam: PRESENT: deferred Gentrourinary exam: PRESENT: indwelling catheter Musculoskeletal exam: PRESENT: normal inspection - [id number] Skin exam: PRESENT: dry, warm Results Laboratory Results: 12/22/16 04:51 12/22/16 04:51 12/21/16 12/21/16 12/21/16 10:24 10:24 11:44 WBC 11.5 H RBC 4.22 L Hgb 12.0 L Hct 36.1 L MCV 86 MCH 28.5 MCHC 33.3 RDW 14.5 H Plt Count 113 L Seg Neutrophils % 85.7 H Lymphocytes % 6.7 L Monocytes % 7.5 Eosinophils % 0.0 Basophils % 0.1 Absolute Neutrophils 9.9 H Absolute Lymphocytes 0.8 Absolute Monocytes 0.9 Absolute Eosinophils 0.0 Absolute Basophils 0.0 Carbonic Acid HCO3/H2CO3 Ratio ABG pH ABG pCO2 ABG pO2 ABG HCO3 ABG O2 Saturation ABG Base Excess FiO2 Sodium 127.4 L Potassium 5.0 Chloride 92 L Carbon Dioxide 29 Anion Gap 6 BUN 26 H Creatinine 1.12 Est GFR ( Amer) > 60 Est GFR (Non-Af Amer) > 60 Glucose 102 Calcium 9.4 Phosphorus Magnesium Fluid Type BRONCHIAL LAVAGE Fluid Source Fluid Color RED Fluid Appearance CLOUDY Fluid Viscosity LIQUID Fluid WBC 283 Fluid RBC [id number] 12/21/16 12/22/16 12/22/16 14:15 04:51 04:51 WBC 19.8 H RBC 4.08 L Hgb 11.7 L Hct 35.0 L MCV 86 MCH 28.6 MCHC 33.3 RDW 14.4 H Plt Count 120 L Seg Neutrophils % Not Reportable Lymphocytes % Not Reportable Monocytes % Not Reportable Eosinophils % Not Reportable Basophils % Not Reportable Absolute Neutrophils Not Reportable Absolute Lymphocytes Not Reportable Absolute Monocytes Not Reportable Absolute Eosinophils Not Reportable Absolute Basophils Not Reportable Carbonic Acid 1.66 H HCO3/H2CO3 Ratio 14:1 ABG pH 7.25 L ABG pCO2 55.1 H ABG pO2 75.9 L ABG HCO3 23.4 ABG O2 Saturation 92.7 L ABG Base Excess -4.5 FiO2 60 Sodium 126.1 L Potassium 5.2 H Chloride 94 L Carbon Dioxide 25 Anion Gap 7 BUN 29 H Creatinine 1.33 H Est GFR ( Amer) > 60 Est GFR (Non-Af Amer) 53 L Glucose 143 H Calcium 8.7 Phosphorus 5.1 H Magnesium 2.1 Fluid Type Fluid Source Fluid Color Fluid Appearance Fluid Viscosity Fluid WBC Fluid RBC 12/22/16 12/22/16 05:25 05:45 WBC RBC Hgb Hct MCV MCH MCHC RDW Plt Count Seg Neutrophils % Lymphocytes % Monocytes % Eosinophils % Basophils % Absolute Neutrophils Absolute Lymphocytes Absolute Monocytes Absolute Eosinophils Absolute Basophils Carbonic Acid Cancelled 1.49 H HCO3/H2CO3 Ratio Cancelled 17:1 ABG pH Cancelled 7.33 L ABG pCO2 Cancelled 49.4 H ABG pO2 Cancelled 127.7 H ABG HCO3 Cancelled 25.6 ABG O2 Saturation Cancelled 98.3 H ABG Base Excess Cancelled -0.7 FiO2 Cancelled 60% Sodium Potassium Chloride Carbon Dioxide Anion Gap BUN Creatinine Est GFR ( Amer) Est GFR (Non-Af Amer) Glucose Calcium Phosphorus Magnesium Fluid Type Fluid Source Fluid Color Fluid Appearance Fluid Viscosity Fluid WBC Fluid RBC 12/22/16 12/22/16 04:51 04:51 Creatine Kinase 32 L CK-MB (CK-2) 0.87 Troponin I 0.040 Impressions: Chest CT 12/15/16 00:00 IMPRESSION: BULKY MEDIASTINAL AND HILAR LYMPHADENOPATHY AND RIGHT SUPRACLAVICULAR LYMPHADENOPATHY DETAILED ABOVE. FINDINGS ARE MOST CONCERNING FOR LYMPHOMA WITH METASTATIC DISEASE ALSO IN THE DIFFERENTIAL. LYMPH NODES SHOULD BE AMENABLE TO ENDOBRONCHIAL BIOPSY. MULTIFOCAL AIRSPACE DISEASE WITH CONSOLIDATION RIGHT LOWER LOBE AND TRACE PLEURAL EFFUSION LIKELY REPRESENTS A POSTOBSTRUCTIVE PNEUMONIA. CORONARY ARTERY DISEASE. Venous Doppler Study 12/20/16 00:00 IMPRESSION: NO EVIDENCE DVT OR SVT IN EITHER LEG. INCIDENTAL REFLUX IN THE GREATER SAPHENOUS VEIN. Fluoroscopy 12/21/16 00:00 IMPRESSION: Intra procedural imaging and fluoro Chest X-Ray 12/22/16 06:00 IMPRESSION: Persistent partial collapse of the right lower lobe with volume loss and consolidation. Interval improvement in the aeration of the left lung with decrease in the left basilar airspace opacity. Cardiomegaly. Support devices in expected locations. Assessment & Plan - Diagnosis (1) Acute exacerbation of chronic obstructive pulmonary disease (COPD) Is this a current diagnosis for this admission?: YesPlan: post obstructive pneumonitis (2) COPD (chronic obstructive pulmonary disease) Qualifiers: COPD type: COPD with acute exacerbation Qualified Code(s): J44.1 - Chronic obstructive pulmonary disease with (acute) exacerbation Is this a current diagnosis for this admission?: Yes (3) HTN (hypertension) Qualifiers: Hypertension type: essential hypertension Qualified Code(s): I10 - Essential (primary) hypertension Is this a current diagnosis for this admission?: Yes (4) Mediastinal lymphadenopathy Is this a current diagnosis for this admission?: YesPlan: awaiting pathology (5) Atrial fibrillation Qualifiers: Atrial fibrillation type: unspecified Qualified Code(s): I48.91 - Unspecified atrial fibrillation Is this a current diagnosis for this admission?: Yes - Time Critical Time spent with patient: 35 or more minutes
[2016-12-22] MEDS: FAMOTIDINE 20 MG TABLET PO SCH ×2 (11:20→21:51)
[2016-12-22] MEDS: METHYLPREDNISOLONE INJ 40 MG/1 ML SDV IV SCH ×2 (11:20→21:51)
--- NOTE | 2016-12-22 12:20 | PDOC PROGRESS REPORT ---
Subjective Progress Note for:: 12/22/16 Subjective:: reason for visit: f/u new onset afib, COPD exac, hypoxia, adenopathy hospital course: per other's notes - "RIRI DUMONT is a 71 year old male who was an active smoker until 1 month ago when he developed worsening respiratory symptoms. He has had progressive cough, wheezing and shortness of breath for the past two months. He has been seen as an outpatient by his primary care team at Dr. Klein' office. I have obtained additional information: He has lost 40 pounds over the past few months. He had an out-patient CT chest on 2016 which showed extensive mediastinal adenopathy and other findings suggestive of metastatic cancer or lymphoma. There had not been enough time to address those findings before this admission. The patient's symptoms significantly worsened over the week [employer]CREEN [employer]. On the day of admission he was barely able to breathe and presented to the emergency department. He was found to have significant wheezing and chest congestion. He was afebrile. His white blood count was 7.3. His chest x-ray showed right basilar consolidate-effusion with some interval diminished right lung volume. Of note, he has a known right pleural effusion. The patient was admitted with acute exacerbation of COPD and continues to improve with IV fluids, antibiotics, bronchodilators, corticosteroids, and oxygen supplementation. He feels better at rest but still c/o dyspnea on minimal exertion. The patient has been seen by Dr. White of pulmonology and I have discussed the case with him. A follow-up CT of the chest was done on and bronchoscopy is planned for Tuesday 12/19. Overall, he feels better with the respiratory treatments but is still significantly REESE." ekg performed Sunday night for reasons not clear to me at this time but shows new onset afib, confirmed on repeat this morning. he is asymptomatic as to palpitations, still feels fatigued and breathless with minimal exertion but denies chest pain, cough with phlegm, fever/chills. his nurse and indicate he is a bit confused this morning, tried to pour his gatorade onto his IV site b/c he "needed to water the garden". as of Sunday his mental state has cleared back to baseline. His HR is better controlled on short acting cardizem and his breathing is much improved. He is s/p bronchoscopy with extensive bronchial lavage and trans-bronchial Bx but unfortunately required intubation and mechanical ventilation post procedure and remains so this morning. ROS: unobtainable due to sedation Physical Exam Vital Signs: Temp Pulse Resp BP Pulse Ox 97.3 F 84 12 109/64 100 12/22/16 10:00 12/22/16 11:51 12/22/16 11:51 12/22/16 10:21 12/22/16 11:51 Intake & Output 12/21/16 12/22/16 12/23/16 06:59 06:59 06:59 Intake Total 280 1235 Output Total 275 1055 325 Balance 5 180 -325 Weight 91.1 kg 92.2 kg General appearance: PRESENT: no acute distress, well-developed, well-nourished Head exam: PRESENT: atraumatic, normocephalic Eye exam: ABSENT: conjunctival injection, scleral icterus Mouth exam: PRESENT: moist Neck exam: ABSENT: tracheal deviation Respiratory exam: PRESENT: rales - bases bilat, unlabored. ABSENT: accessory muscle use, rhonchi, wheezes Cardiovascular exam: PRESENT: irregular rhythm. ABSENT: systolic murmur, tachycardia Pulses: PRESENT: normal radial pulses, normal dorsalis pedis pul GI/Abdominal exam: PRESENT: normal bowel sounds, soft. ABSENT: tenderness Gentrourinary exam: PRESENT: indwelling catheter. ABSENT: scrotal swelling Extremities exam: PRESENT: pedal edema Neurological exam: PRESENT: altered - sedated Skin exam: PRESENT: dry, warm Results Laboratory Results: 12/22/16 04:51 12/22/16 04:51 12/21/16 12/21/16 12/22/16 11:44 14:15 04:51 WBC RBC Hgb Hct MCV MCH MCHC RDW Plt Count Seg Neutrophils % Lymphocytes % Monocytes % Eosinophils % Basophils % Absolute Neutrophils Absolute Lymphocytes Absolute Monocytes Absolute Eosinophils Absolute Basophils Carbonic Acid 1.66 H HCO3/H2CO3 Ratio 14:1 ABG pH 7.25 L ABG pCO2 55.1 H ABG pO2 75.9 L ABG HCO3 23.4 ABG O2 Saturation 92.7 L ABG Base Excess -4.5 FiO2 60 Sodium 126.1 L Potassium 5.2 H Chloride 94 L Carbon Dioxide 25 Anion Gap 7 BUN 29 H Creatinine 1.33 H Est GFR ( Amer) > 60 Est GFR (Non-Af Amer) 53 L Glucose 143 H Calcium 8.7 Phosphorus 5.1 H Magnesium 2.1 Fluid Type BRONCHIAL LAVAGE Fluid Source Fluid Color RED Fluid Appearance CLOUDY Fluid Viscosity LIQUID Fluid WBC 283 Fluid RBC [id number] 12/22/16 12/22/16 12/22/16 04:51 05:25 05:45 WBC 19.8 H RBC 4.08 L Hgb 11.7 L Hct 35.0 L MCV 86 MCH 28.6 MCHC 33.3 RDW 14.4 H Plt Count 120 L Seg Neutrophils % Not Reportable Lymphocytes % Not Reportable Monocytes % Not Reportable Eosinophils % Not Reportable Basophils % Not Reportable Absolute Neutrophils Not Reportable Absolute Lymphocytes Not Reportable Absolute Monocytes Not Reportable Absolute Eosinophils Not Reportable Absolute Basophils Not Reportable Carbonic Acid Cancelled 1.49 H HCO3/H2CO3 Ratio Cancelled 17:1 ABG pH Cancelled 7.33 L ABG pCO2 Cancelled 49.4 H ABG pO2 Cancelled 127.7 H ABG HCO3 Cancelled 25.6 ABG O2 Saturation Cancelled 98.3 H ABG Base Excess Cancelled -0.7 FiO2 Cancelled 60% Sodium Potassium Chloride Carbon Dioxide Anion Gap BUN Creatinine Est GFR ( Amer) Est GFR (Non-Af Amer) Glucose Calcium Phosphorus Magnesium Fluid Type Fluid Source Fluid Color Fluid Appearance Fluid Viscosity Fluid WBC Fluid RBC 12/22/16 12/22/16 04:51 04:51 Creatine Kinase 32 L CK-MB (CK-2) 0.87 Troponin I 0.040 Impressions: Chest CT 12/15/16 00:00 IMPRESSION: BULKY MEDIASTINAL AND HILAR LYMPHADENOPATHY AND RIGHT SUPRACLAVICULAR LYMPHADENOPATHY DETAILED ABOVE. FINDINGS ARE MOST CONCERNING FOR LYMPHOMA WITH METASTATIC DISEASE ALSO IN THE DIFFERENTIAL. LYMPH NODES SHOULD BE AMENABLE TO ENDOBRONCHIAL BIOPSY. MULTIFOCAL AIRSPACE DISEASE WITH CONSOLIDATION RIGHT LOWER LOBE AND TRACE PLEURAL EFFUSION LIKELY REPRESENTS A POSTOBSTRUCTIVE PNEUMONIA. CORONARY ARTERY DISEASE. Venous Doppler Study 12/20/16 00:00 IMPRESSION: NO EVIDENCE DVT OR SVT IN EITHER LEG. INCIDENTAL REFLUX IN THE GREATER SAPHENOUS VEIN. Fluoroscopy 12/21/16 00:00 IMPRESSION: Intra procedural imaging and fluoro Chest X-Ray 12/22/16 06:00 IMPRESSION: Persistent partial collapse of the right lower lobe with volume loss and consolidation. Interval improvement in the aeration of the left lung with decrease in the left basilar airspace opacity. Cardiomegaly. Support devices in expected locations. Status: Image reviewed by me - agree with rads Assessment & Plan - Diagnosis (1) Atrial fibrillation Qualifiers: Atrial fibrillation type: unspecified Qualified Code(s): I48.91 - Unspecified atrial fibrillation Is this a current diagnosis for this admission?: YesPlan: stable; rate controlled off the cardizem at present. 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 (3) Acute exacerbation of chronic obstructive pulmonary disease (COPD) Is this a current diagnosis for this admission?: Yes (4) HTN (hypertension) Qualifiers: Hypertension type: essential hypertension Qualified Code(s): I10 - Essential (primary) hypertension Is this a current diagnosis for this admission?: Yes (5) Hypoxemia Is this a current diagnosis for this admission?: Yes (6) Mediastinal lymphadenopathy Is this a current diagnosis for this admission?: YesPlan: s/p bronchoscopic BX, awaiting path (7) Pneumonia Qualifiers: Pneumonia type: due to unspecified organism Laterality: right Is this a current diagnosis for this admission?: YesPlan: worse with increasing leukocytosis and persistent changes on cxr; agree with sanjusyn, awaiting final cultures from lavage - Time Time Spent with patient: 25-34 minutes - Plan Summary Plan Summary: defer to pulmonary regarding vent management; f/u cbc in am and cultures
--- NOTE | 2016-12-22 13:11 | PDOC CONSULTATION ---
Consultation Consult Date: 12/22/16 Attending physician:: JULIETTE PARKER Consult reason:: Newly dx SCLC History of Present Illness Admission Date/PCP: 12/14/16 09:56 Patient complains of: SCLC History of Present Illness: 71-year-old male who presented now about 1 week ago with shortness of breath, weakness, he was being worked up for a hernia repair, but he is having some breathing difficulties, so he began a workup with pulmonology, this led to worsening shortness of breath, ultimately he was admitted to [facility] with acute respiratory distress. He had a CT of the chest done which indicated bulky mediastinal and hilar adenopathy, especially in the right upper , middle lobe, but the adenopathy extended to the left as well, there was bulky mediastinal adenopathy as well, the largest was prevascular at 5.4 cm, there is right supraclavicular lymphadenopathy, there did not seem to be any disease in the liver. Soon after admission he was intubated and is currently intubated, sedated, and on pressors. He had bronchoscopy done, the results just returned today and indicated small cell lung cancer. Past Medical History Cardiac Medical History: Reports: Coronary Artery Disease, Hypertension Denies: Myocardial Infarction Pulmonary Medical History: Denies: Asthma, Bronchitis, Chronic Obstructive Pulmonary Disease (COPD), Pneumonia Neurological Medical History: Denies: Seizures Musculoskeltal Medical History: Reports: Arthritis - GENERALIZED Psychiatric Medical History: Denies: Depression Hematology: Denies: Anemia Past Surgical History Past Surgical History: Reports: Other - Bronchoscopy Social History Information Source: Relative Smoking Status: Current Some Day Smoker Cigarettes Packs Per Day: 2 Number of Years Smokin Last Time Smoked: MONTH AGO Frequency of Alcohol Use: Occasional Hx Recreational Drug Use: No Drugs: None Hx Prescription Drug Abuse: No - Advance Directive Resuscitation Status: Full Code Family History Family History: Reviewed & Not Pertinent Parental Family History Reviewed: Yes Children Family History Reviewed: Yes Sibling(s) Family History Reviewed.: Yes Medication/Allergy Home Medications: Amlodipine Besylate 10 mg PO DAILY 10/18/16 Meclizine HCl 25 mg PO TID PRN 10/18/16 Hydrochlorothiazide 25 mg PO DAILY 12/14/16 Allergies/Adverse Reactions: No Known Allergies Allergy (Verified 10/19/16 08:41) Review of Systems ROS unobtainable: Due to endotracheal tube Physical Exam Vital Signs: Temp Pulse Resp BP Pulse Ox 97.7 F 101 H 22 H 101/59 L 98 12/22/16 12:00 12/22/16 12:00 12/22/16 12:00 12/22/16 12:00 12/22/16 12:00 Intake & Output 12/21/16 12/22/16 12/23/16 06:59 06:59 06:59 Intake Total 280 1235 Output Total 275 1055 800 Balance 5 180 -800 Weight 91.1 kg 92.2 kg General appearance: PRESENT: other - Intubated, sedated Head exam: PRESENT: atraumatic Eye exam: PRESENT: periorbital swelling Mouth exam: PRESENT: moist Respiratory exam: PRESENT: unlabored Cardiovascular exam: PRESENT: RRR. ABSENT: diastolic murmur, rubs, systolic murmur GI/Abdominal exam: PRESENT: normal bowel sounds, soft. ABSENT: distended, guarding, mass, organolmegaly, rebound, tenderness Rectal exam: PRESENT: deferred Gentrourinary exam: PRESENT: ecchymosis Extremities exam: PRESENT: pedal edema, +2 edema Neurological exam: PRESENT: other - sedated Results Laboratory Results: 12/22/16 04:51 12/22/16 04:51 12/21/16 12/21/16 12/22/16 11:44 14:15 04:51 WBC RBC Hgb Hct MCV MCH MCHC RDW Plt Count Seg Neutrophils % Lymphocytes % Monocytes % Eosinophils % Basophils % Absolute Neutrophils Absolute Lymphocytes Absolute Monocytes Absolute Eosinophils Absolute Basophils Carbonic Acid 1.66 H HCO3/H2CO3 Ratio 14:1 ABG pH 7.25 L ABG pCO2 55.1 H ABG pO2 75.9 L ABG HCO3 23.4 ABG O2 Saturation 92.7 L ABG Base Excess -4.5 FiO2 60 Sodium 126.1 L Potassium 5.2 H Chloride 94 L Carbon Dioxide 25 Anion Gap 7 BUN 29 H Creatinine 1.33 H Est GFR ( Amer) > 60 Est GFR (Non-Af Amer) 53 L Glucose 143 H Calcium 8.7 Phosphorus 5.1 H Magnesium 2.1 Fluid Type BRONCHIAL LAVAGE Fluid Source Fluid Color RED Fluid Appearance CLOUDY Fluid Viscosity LIQUID Fluid WBC 283 Fluid RBC 45286 12/22/16 12/22/16 12/22/16 04:51 05:25 05:45 WBC 19.8 H RBC 4.08 L Hgb 11.7 L Hct 35.0 L MCV 86 MCH 28.6 MCHC 33.3 RDW 14.4 H Plt Count 120 L Seg Neutrophils % Not Reportable Lymphocytes % Not Reportable Monocytes % Not Reportable Eosinophils % Not Reportable Basophils % Not Reportable Absolute Neutrophils Not Reportable Absolute Lymphocytes Not Reportable Absolute Monocytes Not Reportable Absolute Eosinophils Not Reportable Absolute Basophils Not Reportable Carbonic Acid Cancelled 1.49 H HCO3/H2CO3 Ratio Cancelled 17:1 ABG pH Cancelled 7.33 L ABG pCO2 Cancelled 49.4 H ABG pO2 Cancelled 127.7 H ABG HCO3 Cancelled 25.6 ABG O2 Saturation Cancelled 98.3 H ABG Base Excess Cancelled -0.7 FiO2 Cancelled 60% Sodium Potassium Chloride Carbon Dioxide Anion Gap BUN Creatinine Est GFR ( Amer) Est GFR (Non-Af Amer) Glucose Calcium Phosphorus Magnesium Fluid Type Fluid Source Fluid Color Fluid Appearance Fluid Viscosity Fluid WBC Fluid RBC 12/22/16 12/22/16 04:51 04:51 Creatine Kinase 32 L CK-MB (CK-2) 0.87 Troponin I 0.040 Impressions: Chest CT 12/15/16 00:00 IMPRESSION: BULKY MEDIASTINAL AND HILAR LYMPHADENOPATHY AND RIGHT SUPRACLAVICULAR LYMPHADENOPATHY DETAILED ABOVE. FINDINGS ARE MOST CONCERNING FOR LYMPHOMA WITH METASTATIC DISEASE ALSO IN THE DIFFERENTIAL. LYMPH NODES SHOULD BE AMENABLE TO ENDOBRONCHIAL BIOPSY. MULTIFOCAL AIRSPACE DISEASE WITH CONSOLIDATION RIGHT LOWER LOBE AND TRACE PLEURAL EFFUSION LIKELY REPRESENTS A POSTOBSTRUCTIVE PNEUMONIA. CORONARY ARTERY DISEASE. Venous Doppler Study 12/20/16 00:00 IMPRESSION: NO EVIDENCE DVT OR SVT IN EITHER LEG. INCIDENTAL REFLUX IN THE GREATER SAPHENOUS VEIN. Fluoroscopy 12/21/16 00:00 IMPRESSION: Intra procedural imaging and fluoro Chest X-Ray 12/22/16 06:00 IMPRESSION: Persistent partial collapse of the right lower lobe with volume loss and consolidation. Interval improvement in the aeration of the left lung with decrease in the left basilar airspace opacity. Cardiomegaly. Support devices in expected locations. Status: Image reviewed by me Assessment & Plan - Diagnosis (1) Primary malignant neoplasm of right middle lobe of lung Is this a current diagnosis for this admission?: YesPlan: He has probably extensive stage small cell lung cancer, he at least has right supraclavicular adenopathy which would likely not be able to be included in the radiation port, regardless he has bulky disease, although his respiratory status as well as vascular status is precarious because of continued ventilatory and pressor needs, I believe a lot of his issues are being caused by the small cell lung cancer and treatment could improve his condition. His kidney function as well as other labs look appropriate for treatment. We will complete staging with CT of the abdomen pelvis without contrast as well as bone scan. Although this would not be as good as getting contrast I do not want to injure the kidneys any further. We will plan on systemic chemotherapy with carboplatin AUC of 5, etoposide 80 mg per metered squared days 1 through 3. Most likely to start on Sunday or Sunday based upon treatment availability. I explained the situation at length with family, we spent greater than 70 minutes in discussion with family as well as an evaluation with the patient, they agreed to go forward with this treatment plan. - Time Time Spent: Greater than 70 Minutes Critical Time spent with patient: 35 or more minutes - Inpatient Certification Based on my medical assessment, after consideration of the patient's comorbidities, presenting symptoms, or acuity I expect that the services needed warrant INPATIENT care.: Yes I certify that my determination is in accordance with my understanding of Medicare's requirements for reasonable and necessary INPATIENT services [42 CFR 412.3e].: Yes Medical Necessity: Need For Continuous Telemetry Monitoring, Risk of Complication if Not Cared For in Hospital
[2016-12-22] MEDS: MIDAZOLAM 2 MG/2 ML INJ IV PRN (16:10)
--- NOTE | 2016-12-22 16:57 | RADIOLOGY REPORT (SQ) ---
EXAM DESCRIPTION: CT ABD/PELVIS NO ORAL OR IV COMPLETED DATE/TIME: 12/22/2016 4:33 pm REASON FOR STUDY: small cell lung CA staging COMPARISON: 12/15/2016 TECHNIQUE: CT scan of the abdomen and pelvis performed without intravenous or oral contrast. Images reviewed with lung, soft tissue, and bone windows. Reconstructed coronal and sagittal MPR images revi ewed. All images stored on PACS. All CT scanners at this facility use dose modulation, iterative reconstruction, and/or weight based d osing when appropriate to reduce radiation dose to as low as reasonably achievable (ALARA). [facility]: Dose Right [facility]: CareDose [facility]: Dose Right [facility]: Teradose 4D [facility]: [employer] RADIATION DOSE: 20.17mGy. LIMITATIONS: None. FINDINGS: LOWER CHEST: There are small bilateral pleural effusions, increased on the right and new o n the left since the prior study. Increased basilar airspace disease in both lower lobes. Similar i ncreased interstitial and nodular opacities are noted elsewhere. Similar bulky mediastinal adenopath y. Moderate pericardial effusion, stable. NON-CONTRASTED LIVER, SPLEEN, ADRENALS: Evaluation limited by lack of IV contrast. No identified sign ificant masses. PANCREAS: No masses. No peripancreatic inflammatory changes. GALLBLADDER: No identified stones by CT criteria. No inflammatory changes to suggest cholecystitis. RIGHT KIDNEY AND URETER: No suspicious masses. Assessment limited by lack of IV contrast. No signif icant calcifications. No hydronephrosis or hydroureter. LEFT KIDNEY AND URETER: No suspicious masses. Assessment limited by lack of IV contrast. No signifi cant calcifications. No hydronephrosis or hydroureter. AORTA AND RETROPERITONEUM: Mild nonspecific retroperitoneal fat stranding. No aneurysm. No retroperi toneal masses or bulky adenopathy. BOWEL AND PERITONEAL CAVITY: 17 cm infra umbilical ventral hernia containing bowel without evidence f or obstruction or incarceration. Nasogastric catheter is present the body of the stomach. No obvious inflammatory changes. No fluid collection. APPENDIX: Not visualized. PELVIS, BLADDER, AND ABDOMINAL WALL:17 cm infra umbilical ventral hernia containing bowel without yovani dence for obstruction or incarceration. No free fluid. Bladder decompressed by Blake catheter. BONES: No acute findings. OTHER: No other significant finding. IMPRESSION: There are small bilateral pleural effusions, increased on the right and new on the left since the prior study. Increased basilar airspace disease in both lower lobes. Similar increased in terstitial and nodular opacities are noted elsewhere. Similar bulky mediastinal adenopathy. Moderate pericardial effusion, stable. Mild nonspecific retroperitoneal fat stranding. No obvious masses or bulky adenopathy.17 cm infra um bilical ventral hernia containing bowel without evidence for obstruction or incarceration. TECHNICAL DOCUMENTATION: JOB ID: [id number] Quality ID # [id number]: Final reports with documentation of one or more dose reduction techniques (e.g., Au tomated exposure control, adjustment of the mA and/or kV according to patient size, use of iterative reconstruction technique) 2010 [employer]- All Rights Reserved
[2016-12-22] MEDS: OXYCODONE HCL IR 5 MG TABLET PO PRN (17:11)
[2016-12-22] MEDS: LORAZEPAM 0.5 MG TABLET PO PRN (17:11)
--- NOTE | 2016-12-22 18:49 | Operative Report ---
Operative Report DATE OF SURGERY: 12/21/16 PREOPERATIVE DIAGNOSIS: Inadequate peripheral venous access POSTOPERATIVE DIAGNOSIS: Same OPERATION: Insertion of right subclavian vein triple-lumen catheter. SURGEON: REGGIE PEACOCK ANESTHESIA: Local TISSUE REMOVED OR ALTERED: None COMPLICATIONS: None ESTIMATED BLOOD LOSS: None INTRAOPERATIVE FINDINGS: Not applicable PROCEDURE: After consent was obtained from the patient's , the patient's right chest was prepped and draped in usual sterile manner. Local anesthesia was injected into the skin above the space between the clavicle and the first rib, and then the right subclavian vein was accessed using the percutaneous needle approach. After venous blood was noted in the syringe, the syringe was disconnected and a guidewire was advanced through the needle and the needle was removed in this process. A vein dilator was placed over the guidewire, and then using the sterile Seldinger technique, a triple-lumen catheter was advanced over the guidewire with a 15 cm stevenson after removal of the guidewire. The catheter was secured using 3-0 silk suture, and each lumen was flushed with saline. There was good retrograde and antegrade flow of saline through each lumen. Chest x- ray has been requested. Good breath sounds are noted in the right hemithorax.
[2016-12-22] MEDS ORDERED: NORMAL SALINE INJ/PF 0.9% 10 ML SDV IV PRN (18:59)
--- NOTE | 2016-12-22 19:03 | RADIOLOGY REPORT (SQ) ---
EXAM DESCRIPTION: CHEST SINGLE VIEW COMPLETED DATE/TIME: 12/22/2016 6:55 pm REASON FOR STUDY: Central Line Placement COMPARISON: None. EXAM PARAMETERS: NUMBER OF VIEWS: One view. TECHNIQUE: Single frontal radiographic view of the chest acquired. RADIATION DOSE: NA LIMITATIONS: None. FINDINGS: LUNGS AND PLEURA: Increasing multifocal airspace disease with stable bilateral lower lobe consolidation pleural effusions. MEDIASTINUM AND HILAR STRUCTURES: Stable. HEART AND VASCULAR STRUCTURES: Stable. BONES: No acute findings. HARDWARE: Interval placement of right sided venous catheter which courses up the right neck presumabl y within the internal jugular vein. The tip is excluded from field of view. Stable position of endo tracheal tube and nasogastric tube. OTHER: No other significant finding. IMPRESSION: ABNORMALLY POSITIONED RIGHT CENTRAL VENOUS CATHETER ABOVE. REMOVAL IS RECOMMENDED. INCREASING MULTIFOCAL AIRSPACE DISEASE MAY REPRESENT DEVELOPING PULMONARY EDEMA, MULTIFOCAL PNEUMONIA , OR ARDS. TECHNICAL DOCUMENTATION: JOB ID: [id number]
--- NOTE | 2016-12-22 19:15 | PDOC PROGRESS REPORT ---
Subjective Progress Note for:: 12/22/16 Subjective:: Patient is intubated and sedated Physical Exam Vital Signs: Temp Pulse Resp BP Pulse Ox 97.9 F 101 H 17 122/75 100 12/22/16 18:00 12/22/16 18:00 12/22/16 18:24 12/22/16 18:24 12/22/16 18:23 Intake & Output 12/21/16 12/22/16 12/23/16 06:59 06:59 06:59 Intake Total 280 1235 868 Output Total 275 1055 1200 Balance 5 180 -332 Weight 91.1 kg 92.2 kg Results Laboratory Results: 12/22/16 04:51 12/22/16 04:51 12/22/16 12/22/16 12/22/16 04:51 04:51 05:25 WBC 19.8 H RBC 4.08 L Hgb 11.7 L Hct 35.0 L MCV 86 MCH 28.6 MCHC 33.3 RDW 14.4 H Plt Count 120 L Seg Neutrophils % Not Reportable Lymphocytes % Not Reportable Monocytes % Not Reportable Eosinophils % Not Reportable Basophils % Not Reportable Absolute Neutrophils Not Reportable Absolute Lymphocytes Not Reportable Absolute Monocytes Not Reportable Absolute Eosinophils Not Reportable Absolute Basophils Not Reportable Carbonic Acid Cancelled HCO3/H2CO3 Ratio Cancelled ABG pH Cancelled ABG pCO2 Cancelled ABG pO2 Cancelled ABG HCO3 Cancelled ABG O2 Saturation Cancelled ABG Base Excess Cancelled FiO2 Cancelled Sodium 126.1 L Potassium 5.2 H Chloride 94 L Carbon Dioxide 25 Anion Gap 7 BUN 29 H Creatinine 1.33 H Est GFR ( Amer) > 60 Est GFR (Non-Af Amer) 53 L Glucose 143 H Calcium 8.7 Phosphorus 5.1 H Magnesium 2.1 12/22/16 05:45 WBC RBC Hgb Hct MCV MCH MCHC RDW Plt Count Seg Neutrophils % Lymphocytes % Monocytes % Eosinophils % Basophils % Absolute Neutrophils Absolute Lymphocytes Absolute Monocytes Absolute Eosinophils Absolute Basophils Carbonic Acid 1.49 H HCO3/H2CO3 Ratio 17:1 ABG pH 7.33 L ABG pCO2 49.4 H ABG pO2 127.7 H ABG HCO3 25.6 ABG O2 Saturation 98.3 H ABG Base Excess -0.7 FiO2 60% Sodium Potassium Chloride Carbon Dioxide Anion Gap BUN Creatinine Est GFR ( Amer) Est GFR (Non-Af Amer) Glucose Calcium Phosphorus Magnesium 12/22/16 12/22/16 04:51 04:51 Creatine Kinase 32 L CK-MB (CK-2) 0.87 Troponin I 0.040 Impressions: Chest CT 12/15/16 00:00 IMPRESSION: BULKY MEDIASTINAL AND HILAR LYMPHADENOPATHY AND RIGHT SUPRACLAVICULAR LYMPHADENOPATHY DETAILED ABOVE. FINDINGS ARE MOST CONCERNING FOR LYMPHOMA WITH METASTATIC DISEASE ALSO IN THE DIFFERENTIAL. LYMPH NODES SHOULD BE AMENABLE TO ENDOBRONCHIAL BIOPSY. MULTIFOCAL AIRSPACE DISEASE WITH CONSOLIDATION RIGHT LOWER LOBE AND TRACE PLEURAL EFFUSION LIKELY REPRESENTS A POSTOBSTRUCTIVE PNEUMONIA. CORONARY ARTERY DISEASE. Venous Doppler Study 12/20/16 00:00 IMPRESSION: NO EVIDENCE DVT OR SVT IN EITHER LEG. INCIDENTAL REFLUX IN THE GREATER SAPHENOUS VEIN. Fluoroscopy 12/21/16 00:00 IMPRESSION: Intra procedural imaging and fluoro Abdomen/Pelvis CT 12/22/16 13:34 IMPRESSION: There are small bilateral pleural effusions, increased on the right and new on the left since the prior study. Increased basilar airspace disease in both lower lobes. Similar increased interstitial and nodular opacities are noted elsewhere. Similar bulky mediastinal adenopathy. Moderate pericardial effusion, stable. Mild nonspecific retroperitoneal fat stranding. No obvious masses or bulky adenopathy.17 cm infra umbilical ventral hernia containing bowel without evidence for obstruction or incarceration. Chest X-Ray 12/22/16 18:30 IMPRESSION: ABNORMALLY POSITIONED RIGHT CENTRAL VENOUS CATHETER ABOVE. REMOVAL IS RECOMMENDED. INCREASING MULTIFOCAL AIRSPACE DISEASE MAY REPRESENT DEVELOPING PULMONARY EDEMA , MULTIFOCAL PNEUMONIA, OR ARDS. Assessment & Plan - Plan Summary Plan Summary: Subclavian vein triple-lumen catheter is noted in the right internal jugular vein. Catheter can be accessed for vasopressors, IV fluids, other medications and all else except for hyperalimentation.
--- NOTE | 2016-12-22 21:13 | PROGRESS NOTE E ---
Progress Note NAME: RIRI DUMONT : 1945 AGE: 71Y DATE: 12/22/2016 ROOM: 611 CRITICAL CARE TIME: I was with the patient from 8 a.m. to 8:40 a.m. reviewing the patient's medications and adjusting the patient's medications. SUBJECTIVE: After I finished my note last night of the previous exam and the prior time examination of the patient, what caught my eye was that the patient's MAR showed that the patient was on norepinephrine, which was said to be active although it is sometimes kept active even the drip is off so that the nurses can start the drip emergently if the situation arises. But when I spoke to the nurse last night, I found out that the patient was on 12 mcg/min of Levophed. Also their history became more clearer that the patient had a bronchoscopy that afternoon and was extubated and again went into respiratory difficulty and had to be intubated at that time and propofol was started to help for sedation of the patient, at which time the patient became hypotensive. At that time the patient was started on norepinephrine, which had been increased last night around 8:30 p.m. to 12 mcg/min. I called Dr. White, the foundry helper, and asked him to advice me to put the patient on an antibiotic and he recommended Unasyn 3 gm IV piggyback q.6 h. Also, I recommended that the patient be started on Heri-Synephrine and Heri-Synephrine increased and to take this Levophed off, since Levophed can increase the patient's heart rate, but it is not such a high likelihood that Heri-Synephrine would do. As per that, the patient's Heri-Synephrine was started at 40 and went up to 80 and we were able to get the Levophed down to 6 mcg/min. Subsequently last night they further weaned the patient off Levophed and the patient's Levophed is off. This morning the patient is on Heri-Synephrine drip of 60 mcg/min. He is also off the Cardizem drip and his heart rate seems to be reasonably well controlled but the patient is still in atrial fibrillation. There is no ventricular arrhythmia seen. The patient does not seem to be fighting the ventilator. OBJECTIVE: VITAL SIGNS: On examination, the patient is afebrile with a temperature of temperature of 97.2 degrees Fahrenheit, pulse of 92 beats per minute and irregularly irregular, blood pressure is 102/68, respirations are 12 on the respirator with an FiO2 of 60% and 02 saturations are 99%. HEENT: Head is atraumatic, normocephalic. Eyes: Pupils are equal, round, regular and reactive to light. The rest of the ENT could not be examined due to patient being intubated and sedated. NECK: Supple. There is no JVD. Carotids are equal. There is no bruit. There is no lymphadenopathy. There is no goiter. Trachea is central. LUNGS: Show bilateral rhonchi and wheezing all over in both lung chavez. CARDIOVASCULAR: S1, S2 are heard. There is variable S1 in intensity. There is no S3 gallop. There is no S4 gallop. There is systolic murmur in left sternal border and the apex. There is no rub. ABDOMEN: Soft, nontender. There is no hepatosplenomegaly. Bowel sounds are well heard. EXTREMITIES: Femorals are diminished. There are no femoral bruits. Leg pulses are diminished. There is no pedal edema. There is no cyanosis or clubbing. There is no DVT or cellulitis. CENTRAL NERVOUS SYSTEM: Not examined. PSYCHIATRIC: Not examined. 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 The patient's 24-hr intake has been 1235 mL; output is 1055 mL. The patient's white count is 19,800, hemoglobin is 11.7, hematocrit is 35, and the patient's platelet count is 120,000. The patient's sodium is 126, potassium 5.2, chloride is 94, CO2 is 25, BUN is 29, creatinine is 1.33. GFR is reduced at 53 mL which is acute kidney injury. Yesterday his GFR was greater than 60. The patient's glucose is 143, calcium is 8.7, phosphorus 5.1, magnesium is 2.1. The patient's CK is 32, CPK-MB is 0.87 and his troponin I is 0.040. His ABGs show a pH of 7.33, PCO2 is high at 49.4, PO2 is high at 127.7, and O2 sats are 98.3% on an FiO2 of 60%. The patient's AFB smear showed no acid-fast bacilli. The patient's abdomen and pelvis CT shows there is a small bilateral pleural effusion, increased on the right and new on the left side from the prior study, increased basilar air space disease in both lower lobes, similar increased interstitial and nodular opacities are noted elsewhere, similar bulky mediastinal lymphadenopathy, moderate pericardial effusion stable, nonspecific retroperitoneal fat stranding; no obvious masses or bulky adenopathy; a 1.7 cm infraumbilical ventral hernia containing bowel without evidence of obstruction or incarceration. The patient's chest x-ray this morning, the lungs show increasingly multifocal air space disease with stable bilateral lower lobe consolidation/pericardial effusions; no evidence of congestive heart failure. The patient's EKG shows atrial fibrillation, probable anteroseptal infarct, age indeterminate. IMPRESSION: 1. HYPOTENSION MOST LIKELY SECONDARY TO SEPSIS, PNEUMONIA AND RESPIRATORY FAILURE. 2. STATUS POST BRONCHIAL BIOPSY OF THE RIGHT LOWER LOBE LUNG MASS. The biopsy came back positive for small-cell lung cancer. 3. HYPERCAPNIC RESPIRATORY FAILURE WITH PO2 BEING GOOD AT PRESENT ON FiO2 OF 60%. 4. ATRIAL FIBRILLATION WITH CONTROLLED VENTRICULAR RESPONSE WITHOUT CARDIZEM. 5. MEDIASTINAL LYMPHADENOPATHY AND RIGHT SUPRACLAVICULAR LYMPHADENOPATHY. This is secondary to small cell lung cancer metastasis. 6. BILATERAL LOWER LOBE PNEUMONIA WITH EFFUSION. 7. HYPERTENSION. 8. HISTORY OF ANXIETY. 9. HISTORY OF CORONARY ARTERY DISEASE. At present no OR and no EKG changes. 10. PERICARDIAL EFFUSION. No evidence of tamponade, most likely malignant. RECOMMENDATION: Note that the patient's medications have been reviewed. Will try to wean off the patient's Heri-Synephrine. Continue ampicillin and sulbactam, that is Unasyn, 3 gm IV piggyback q.6 h. Continue hypoglycemic precautions with glucose 40% gel 15 gm p.o. and 30 p.o. p.r.n. hypoglycemia, dextrose 50% 12.5 gm IV p.r.n. hypoglycemia, dextrose 50% 25 gm IV p.r.n. hypoglycemia. At present the patient's Cardizem drip has been discontinued. Famotidine 20 mg via the NG tube q.12 h. Glucagon 1 mg subcutaneously p.r.n. He is on ipratropium albuterol 3 mL nebulizer treatment q.4 h. while awake. Methylprednisolone 40 mg IV q.12 h., midazolam, that is Versed, 2 mg IV q.4 h. p.r.n. Note that the patient's norepinephrine has been discontinued. The patient is on Heri-Synephrine at present 60 mcg/min. The patient is on a propofol drip and is on zolpidem tartrate 10 mg p.o. at bedtime p.r.n. The patient will continue that. Will try to get the patient off the Heri-Synephrine. Later with the NG tube will start the patient on Cardizem via NG tube 30 mg q.8 h. Continue antibiotics. Continue ventilator support and oxygen. Watch the patient for tamponade since the patient does have pericardial effusion. Note, today's examination did not show any pulsus paradoxus or any other clinical signs of tamponade. Probably will repeat a limited echo on Sunday to make sure that the pericardial effusion has not gotten bigger. Note, oncologist has been consulted on the case. As mentioned earlier, 40 minutes of critical care time spent on the patient and more than 50% of the time spent on direct patient care. The patient's medications have been reviewed and also coordination of care with other caregivers on this case done and discussed with foundry helper and attending physician on the case. At present the patient's family is not there. Will recheck the patient's EKG and troponin I in the a.m., since the patient does have a history of coronary artery disease presumably and, hence, in view of the patient's hypotension earlier on, which has now been corrected, will need to make sure that the patient does not *------* a myocardial event. NOTE: Forty minutes of critical care time spent from 8 a.m. to 8:40 a.m. DICTATING PHYSICIAN: DEANDRA BOSTON M.D. [id number] PHY#: [id number] 2012 ID: [id number] JOB#: [id number] ACCT: [id number] cc: >
[2016-12-23] MEDS: AMPICILLIN SODIUM/SULBACTAM NA 3 GM in NORMAL SALINE 100 ML IV SCH ×5 (01:05→23:22)
[2016-12-23] MEDS: PROPOFOL 100 ML IV PRN ×7 (02:11→22:59)
[2016-12-23 05:36] LABS: ARTERIAL BLOOD BASE EXCESS 0.9 mmol/L; ARTERIAL BLOOD O2 SATURATION 97.3 % (94-98)
[2016-12-23 05:40] LABS: ABSOLUTE LYMPHOCYTES (AUTO) 0.7 10^3/uL (0.5-4.7); ABSOLUTE MONOCYTES (AUTO) 1.2 10^3/uL (0.1-1.4); ABSOLUTE NEUT (AUTO) 11.9 10^3/uL (1.7-8.2); BASOPHILS % (AUTO) 0.2 % (0-2); HEMATOCRIT 34.4 % (37.9-51.0); HEMOGLOBIN 11.2 g/dL (13.5-17.0); HGB HCT DIFFERENCE -0.8; LYMPHOCYTES % (AUTO) 5.3 % (13-45); MEAN CORPUSCULAR HEMOGLOBIN 28.3 pg (27.0-33.4); MEAN CORPUSCULAR HGB CONC 32.6 g/dL (32.0-36.0); MEAN CORPUSCULAR VOLUME 87 fl (80-97); MONOCYTES % (AUTO) 8.4 % (3-13); RED BLOOD COUNT 3.97 10^6/uL (4.35-5.55); RED CELL DISTRIBUTION WIDTH 14.9 % (11.5-14.0); SEGMENTED NEUTROPHILS % (AUTO) 86.1 % (42-78); WHITE BLOOD COUNT 13.9 10^3/uL (4.0-10.5)
[2016-12-23 05:48] LABS: ANION GAP 7 (5-19); BLOOD UREA NITROGEN 26 mg/dL (7-20); CALCIUM 8.8 mg/dL (8.4-10.2); CARBON DIOXIDE 29 mmol/L (22-30); CHLORIDE 94 mmol/L (98-107); CREATININE RESULT 1.06 mg/dL (0.52-1.25); GLUCOSE 121 mg/dL (75-110); MAGNESIUM 2.4 mg/dL (1.6-2.3); PHOSPHORUS 4.3 mg/dL (2.5-4.5); POTASSIUM 4.5 mmol/L (3.6-5.0); SODIUM 130.1 mmol/L (137-145)
[2016-12-23] MEDS: DEXTROSE 5%-WATER 250 ML with PHENYLEPHRINE HCL 40 MG IV PRN ×4 (06:37→17:28)
--- NOTE | 2016-12-23 07:49 | RADIOLOGY REPORT (SQ) ---
EXAM DESCRIPTION: CHEST SINGLE VIEW COMPLETED DATE/TIME: 12/23/2016 6:58 am REASON FOR STUDY: Intubated COMPARISON: Chest x-ray 12/22/2016. CT chest 12/15/2016. EXAM PARAMETERS: NUMBER OF VIEWS: One view TECHNIQUE: Single frontal radiograph of the chest. RADIATION DOSE: N/A LIMITATIONS: None. FINDINGS: TEMPORARY SUPPORT DEVICES:ETT in expected location. NG tube courses below the left esperanza-d iaphragm in to the stomach. Redemonstration of right-sided central catheter with the tip coursing sujey ng the soft tissues of the right neck, the tip is not included on this exam. LUNGS AND PLEURA: Persistent small bilateral pleural effusions and bibasilar consolidation. No pneu mothorax. MEDIASTINUM AND HILAR STRUCTURES: Known mediastinal and hilar adenopathy. HEART AND VASCULAR STRUCTURES: The heart is enlarged. No overt vascular congestion. BONES: No acute findings. IMPRESSION: Persistent small bilateral pleural effusions and consolidation in the bilateral lower lo bes. Malpositioned right-sided central line extending into the soft tissues of the right neck, the tip is not visualized on this exam. COMMENT: Pertinent findings on the imaging study reported as a CRITICAL RESULT to Dr. Fields At07:38 hrs on 12/23/2016. Category of Critical Result: Malpositioned right-sided central line. TECHNICAL DOCUMENTATION: JOB ID: [id number] [employer]- All Rights Reserved
[2016-12-23] MEDS: MIDAZOLAM 2 MG/2 ML INJ IV PRN (07:53)
[2016-12-23] MEDS ORDERED: BISACODYL 10 MG SUPP.RECT PR ONE (07:58)
[2016-12-23] MEDS: IPRATROPIUM/ALBUTEROL 0.5-2.5 MG/3 ML AMPUL NEB SCH ×4 (08:41→20:22)
[2016-12-23] MEDS: METHYLPREDNISOLONE INJ 40 MG/1 ML SDV IV SCH ×2 (10:10→23:21)
[2016-12-23] MEDS: PANTOPRAZOLE SODIUM 40 MG VIAL IV SCH (10:10)
[2016-12-23] MEDS: DOCUSATE SODIUM 100 MG CAPSULE PO SCH ×2 (10:10→17:07)
--- NOTE | 2016-12-23 11:04 | PDOC PROGRESS REPORT ---
Subjective Progress Note for:: 12/23/16 Subjective:: No acute events, pt had central line placed Physical Exam Vital Signs: Temp Pulse Resp BP Pulse Ox 96.4 F L 86 12 98/75 L 93 12/23/16 10:00 12/23/16 10:00 12/23/16 10:02 12/23/16 10:00 12/23/16 10:02 Intake & Output 12/22/16 12/23/16 12/24/16 06:59 06:59 06:59 Intake Total 1235 1709 Output Total 1055 1570 405 Balance 180 139 -405 Weight 92.2 kg 92.1 kg General appearance: PRESENT: no acute distress Head exam: PRESENT: atraumatic Mouth exam: PRESENT: moist Respiratory exam: PRESENT: clear to auscultation stewart. ABSENT: rales, rhonchi, wheezes Cardiovascular exam: PRESENT: RRR. ABSENT: diastolic murmur, rubs, systolic murmur GI/Abdominal exam: PRESENT: normal bowel sounds, soft. ABSENT: distended, guarding, mass, organolmegaly, rebound, tenderness Rectal exam: PRESENT: deferred Results Laboratory Results: 12/23/16 05:05 12/23/16 05:05 12/23/16 12/23/16 12/23/16 05:05 05:05 05:05 WBC 13.9 H RBC 3.97 L Hgb 11.2 L Hct 34.4 L MCV 87 MCH 28.3 MCHC 32.6 RDW 14.9 H Plt Count 86 L Seg Neutrophils % 86.1 H Lymphocytes % 5.3 L Monocytes % 8.4 Eosinophils % 0.0 Basophils % 0.2 Absolute Neutrophils 11.9 H Absolute Lymphocytes 0.7 Absolute Monocytes 1.2 Absolute Eosinophils 0.0 Absolute Basophils 0.0 Carbonic Acid 1.34 HCO3/H2CO3 Ratio 19:1 ABG pH 7.39 ABG pCO2 44.5 ABG pO2 97.2 ABG HCO3 26.2 H ABG O2 Saturation 97.3 ABG Base Excess 0.9 FiO2 60% Sodium 130.1 L Potassium 4.5 Chloride 94 L Carbon Dioxide 29 Anion Gap 7 BUN 26 H Creatinine 1.06 Est GFR ( Amer) > 60 Est GFR (Non-Af Amer) > 60 Glucose 121 H Calcium 8.8 Phosphorus 4.3 Magnesium 2.4 H 12/22/16 12/22/16 04:51 04:51 Creatine Kinase 32 L CK-MB (CK-2) 0.87 Troponin I 0.040 Impressions: Chest CT 12/15/16 00:00 IMPRESSION: BULKY MEDIASTINAL AND HILAR LYMPHADENOPATHY AND RIGHT SUPRACLAVICULAR LYMPHADENOPATHY DETAILED ABOVE. FINDINGS ARE MOST CONCERNING FOR LYMPHOMA WITH METASTATIC DISEASE ALSO IN THE DIFFERENTIAL. LYMPH NODES SHOULD BE AMENABLE TO ENDOBRONCHIAL BIOPSY. MULTIFOCAL AIRSPACE DISEASE WITH CONSOLIDATION RIGHT LOWER LOBE AND TRACE PLEURAL EFFUSION LIKELY REPRESENTS A POSTOBSTRUCTIVE PNEUMONIA. CORONARY ARTERY DISEASE. Venous Doppler Study 12/20/16 00:00 IMPRESSION: NO EVIDENCE DVT OR SVT IN EITHER LEG. INCIDENTAL REFLUX IN THE GREATER SAPHENOUS VEIN. Fluoroscopy 12/21/16 00:00 IMPRESSION: Intra procedural imaging and fluoro Abdomen/Pelvis CT 12/22/16 13:34 IMPRESSION: There are small bilateral pleural effusions, increased on the right and new on the left since the prior study. Increased basilar airspace disease in both lower lobes. Similar increased interstitial and nodular opacities are noted elsewhere. Similar bulky mediastinal adenopathy. Moderate pericardial effusion, stable. Mild nonspecific retroperitoneal fat stranding. No obvious masses or bulky adenopathy.17 cm infra umbilical ventral hernia containing bowel without evidence for obstruction or incarceration. Chest X-Ray 12/23/16 06:00 IMPRESSION: Persistent small bilateral pleural effusions and consolidation in the bilateral lower lobes. Malpositioned right-sided central line extending into the soft tissues of the right neck, the tip is not visualized on this exam. Assessment & Plan - Diagnosis (1) Primary malignant neoplasm of right middle lobe of lung Is this a current diagnosis for this admission?: YesPlan: CT A/P negative for mets, bone scan planned for sunday, plan for chemo rx most likely to be given sunday or sunday. Will follow. - Time Time Spent with patient: 15-24 minutes Critical Time spent with patient: 15-24 minutes
--- NOTE | 2016-12-23 11:11 | PDOC PROGRESS REPORT ---
Subjective Progress Note for:: 12/23/16 Subjective:: intubated Physical Exam Vital Signs: Temp Pulse Resp BP Pulse Ox 96.4 F L 86 12 98/75 L 93 12/23/16 10:00 12/23/16 10:00 12/23/16 10:02 12/23/16 10:00 12/23/16 10:02 Intake & Output 12/22/16 12/23/16 12/24/16 06:59 06:59 06:59 Intake Total 1235 1709 Output Total 1055 1570 405 Balance 180 139 -405 Weight 92.2 kg 92.1 kg General appearance: PRESENT: no acute distress, disheveled, obese, well- developed Head exam: PRESENT: atraumatic, normocephalic Eye exam: PRESENT: conjunctiva pale Mouth exam: PRESENT: dry mucosa, neck supple, other - ET tube Neck exam: ABSENT: carotid bruit, JVD, lymphadenopathy, thyromegaly Respiratory exam: PRESENT: decreased breath sounds, prolonged expiratory phas, rales, rhonchi, unlabored, other - R esperanza-thorax Cardiovascular exam: PRESENT: irregular rhythm GI/Abdominal exam: PRESENT: normal bowel sounds, soft. ABSENT: distended, guarding, mass, organolmegaly, rebound, tenderness Rectal exam: PRESENT: deferred Gentrourinary exam: PRESENT: indwelling catheter Musculoskeletal exam: PRESENT: normal inspection Skin exam: PRESENT: dry, warm Results Laboratory Results: 12/23/16 05:05 12/23/16 05:05 12/23/16 12/23/16 12/23/16 05:05 05:05 05:05 WBC 13.9 H RBC 3.97 L Hgb 11.2 L Hct 34.4 L MCV 87 MCH 28.3 MCHC 32.6 RDW 14.9 H Plt Count 86 L Seg Neutrophils % 86.1 H Lymphocytes % 5.3 L Monocytes % 8.4 Eosinophils % 0.0 Basophils % 0.2 Absolute Neutrophils 11.9 H Absolute Lymphocytes 0.7 Absolute Monocytes 1.2 Absolute Eosinophils 0.0 Absolute Basophils 0.0 Carbonic Acid 1.34 HCO3/H2CO3 Ratio 19:1 ABG pH 7.39 ABG pCO2 44.5 ABG pO2 97.2 ABG HCO3 26.2 H ABG O2 Saturation 97.3 ABG Base Excess 0.9 FiO2 60% Sodium 130.1 L Potassium 4.5 Chloride 94 L Carbon Dioxide 29 Anion Gap 7 BUN 26 H Creatinine 1.06 Est GFR ( Amer) > 60 Est GFR (Non-Af Amer) > 60 Glucose 121 H Calcium 8.8 Phosphorus 4.3 Magnesium 2.4 H 12/22/16 12/22/16 04:51 04:51 Creatine Kinase 32 L CK-MB (CK-2) 0.87 Troponin I 0.040 Impressions: Chest CT 12/15/16 00:00 IMPRESSION: BULKY MEDIASTINAL AND HILAR LYMPHADENOPATHY AND RIGHT SUPRACLAVICULAR LYMPHADENOPATHY DETAILED ABOVE. FINDINGS ARE MOST CONCERNING FOR LYMPHOMA WITH METASTATIC DISEASE ALSO IN THE DIFFERENTIAL. LYMPH NODES SHOULD BE AMENABLE TO ENDOBRONCHIAL BIOPSY. MULTIFOCAL AIRSPACE DISEASE WITH CONSOLIDATION RIGHT LOWER LOBE AND TRACE PLEURAL EFFUSION LIKELY REPRESENTS A POSTOBSTRUCTIVE PNEUMONIA. CORONARY ARTERY DISEASE. Venous Doppler Study 12/20/16 00:00 IMPRESSION: NO EVIDENCE DVT OR SVT IN EITHER LEG. INCIDENTAL REFLUX IN THE GREATER SAPHENOUS VEIN. Fluoroscopy 12/21/16 00:00 IMPRESSION: Intra procedural imaging and fluoro Abdomen/Pelvis CT 12/22/16 13:34 IMPRESSION: There are small bilateral pleural effusions, increased on the right and new on the left since the prior study. Increased basilar airspace disease in both lower lobes. Similar increased interstitial and nodular opacities are noted elsewhere. Similar bulky mediastinal adenopathy. Moderate pericardial effusion, stable. Mild nonspecific retroperitoneal fat stranding. No obvious masses or bulky adenopathy.17 cm infra umbilical ventral hernia containing bowel without evidence for obstruction or incarceration. Chest X-Ray 12/23/16 06:00 IMPRESSION: Persistent small bilateral pleural effusions and consolidation in the bilateral lower lobes. Malpositioned right-sided central line extending into the soft tissues of the right neck, the tip is not visualized on this exam. Assessment & Plan - Diagnosis (1) Acute exacerbation of chronic obstructive pulmonary disease (COPD) Is this a current diagnosis for this admission?: YesPlan: post obstructive pneumonitis increasing WBC (2) COPD (chronic obstructive pulmonary disease) Qualifiers: COPD type: COPD with acute exacerbation Qualified Code(s): J44.1 - Chronic obstructive pulmonary disease with (acute) exacerbation Is this a current diagnosis for this admission?: Yes (3) HTN (hypertension) Qualifiers: Hypertension type: essential hypertension Qualified Code(s): I10 - Essential (primary) hypertension Is this a current diagnosis for this admission?: Yes (4) Mediastinal lymphadenopathy Is this a current diagnosis for this admission?: YesPlan: SCLC (5) Atrial fibrillation Qualifiers: Atrial fibrillation type: unspecified Qualified Code(s): I48.91 - Unspecified atrial fibrillation Is this a current diagnosis for this admission?: YesPlan: ventricular response well controlled - Time Critical Time spent with patient: 35 or more minutes
--- NOTE | 2016-12-23 12:08 | PDOC PROGRESS REPORT ---
Subjective Progress Note for:: 12/23/16 Subjective:: reason for visit: f/u new onset afib, COPD exac, hypoxia, adenopathy hospital course: per other's notes - "RIRI DUMONT is a 71 year old male who was an active smoker until 1 month ago when he developed worsening respiratory symptoms. He has had progressive cough, wheezing and shortness of breath for the past two months. He has been seen as an outpatient by his primary care team at Dr. Klein' office. I have obtained additional information: He has lost 40 pounds over the past few months. He had an out-patient CT chest on 2016 which showed extensive mediastinal adenopathy and other findings suggestive of metastatic cancer or lymphoma. There had not been enough time to address those findings before this admission. 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 On the day of admission he was barely able to breathe and presented to the emergency department. He was found to have significant wheezing and chest congestion. He was afebrile. His white blood count was 7.3. His chest x-ray showed right basilar consolidate-effusion with some interval diminished right lung volume. Of note, he has a known right pleural effusion. The patient was admitted with acute exacerbation of COPD and continues to improve with IV fluids, antibiotics, bronchodilators, corticosteroids, and oxygen supplementation. He feels better at rest but still c/o dyspnea on minimal exertion. The patient has been seen by Dr. White of pulmonology and I have discussed the case with him. A follow-up CT of the chest was done on and bronchoscopy is planned for Tuesday 12/19. Overall, he feels better with the respiratory treatments but is still significantly REESE." ekg performed Sunday night for reasons not clear to me at this time but shows new onset afib, confirmed on repeat this morning. he is asymptomatic as to palpitations, still feels fatigued and breathless with minimal exertion but denies chest pain, cough with phlegm, fever/chills. his nurse and indicate he is a bit confused this morning, tried to pour his gatorade onto his IV site b/c he "needed to water the garden". as of Sunday his mental state has cleared back to baseline. His HR is better controlled on short acting cardizem and his breathing is much improved. He is s/p bronchoscopy with extensive bronchial lavage and trans-bronchial Bx but unfortunately required intubation and mechanical ventilation post procedure and remains so this morning. New developing bilat infiltrate with probable pneumonitis, possible pneumonia with improving leukocytosis after initiation of abx. ROS: unobtainable due to sedation Physical Exam Vital Signs: Temp Pulse Resp BP Pulse Ox 97.7 F 85 10 L 112/80 94 12/23/16 11:55 12/23/16 11:55 12/23/16 11:55 12/23/16 11:55 12/23/16 11:55 Intake & Output 12/22/16 12/23/16 12/24/16 06:59 06:59 06:59 Intake Total 1235 1709 Output Total 1055 1570 715 Balance 180 139 -715 Weight 92.2 kg 92.1 kg General appearance: PRESENT: no acute distress, well-developed, well-nourished Head exam: PRESENT: atraumatic, normocephalic Eye exam: ABSENT: conjunctival injection, scleral icterus Mouth exam: PRESENT: neck supple, other - Rt IJ central line Neck exam: PRESENT: lymphadenopathy - rock hard 3-4 cm Rt supraclavicular node afixed to underlying tissue with well defined borders. ABSENT: tracheal deviation Respiratory exam: PRESENT: rales. ABSENT: accessory muscle use, rhonchi, wheezes Cardiovascular exam: PRESENT: irregular rhythm, systolic murmur. ABSENT: tachycardia Pulses: PRESENT: normal radial pulses, normal dorsalis pedis pul GI/Abdominal exam: PRESENT: hypoactive bowel sounds, soft. ABSENT: firm, guarding Extremities exam: PRESENT: pedal edema. ABSENT: clubbing Neurological exam: PRESENT: altered - sedated Skin exam: PRESENT: warm. ABSENT: dry Results Laboratory Results: 12/23/16 05:05 12/23/16 05:05 12/23/16 12/23/16 12/23/16 05:05 05:05 05:05 WBC 13.9 H RBC 3.97 L Hgb 11.2 L Hct 34.4 L MCV 87 MCH 28.3 MCHC 32.6 RDW 14.9 H Plt Count 86 L Seg Neutrophils % 86.1 H Lymphocytes % 5.3 L Monocytes % 8.4 Eosinophils % 0.0 Basophils % 0.2 Absolute Neutrophils 11.9 H Absolute Lymphocytes 0.7 Absolute Monocytes 1.2 Absolute Eosinophils 0.0 Absolute Basophils 0.0 Carbonic Acid 1.34 HCO3/H2CO3 Ratio 19:1 ABG pH 7.39 ABG pCO2 44.5 ABG pO2 97.2 ABG HCO3 26.2 H ABG O2 Saturation 97.3 ABG Base Excess 0.9 FiO2 60% Sodium 130.1 L Potassium 4.5 Chloride 94 L Carbon Dioxide 29 Anion Gap 7 BUN 26 H Creatinine 1.06 Est GFR ( Amer) > 60 Est GFR (Non-Af Amer) > 60 Glucose 121 H Calcium 8.8 Phosphorus 4.3 Magnesium 2.4 H 12/22/16 12/22/16 04:51 04:51 Creatine Kinase 32 L CK-MB (CK-2) 0.87 Troponin I 0.040 Impressions: Chest CT 12/15/16 00:00 IMPRESSION: BULKY MEDIASTINAL AND HILAR LYMPHADENOPATHY AND RIGHT SUPRACLAVICULAR LYMPHADENOPATHY DETAILED ABOVE. FINDINGS ARE MOST CONCERNING FOR LYMPHOMA WITH METASTATIC DISEASE ALSO IN THE DIFFERENTIAL. LYMPH NODES SHOULD BE AMENABLE TO ENDOBRONCHIAL BIOPSY. MULTIFOCAL AIRSPACE DISEASE WITH CONSOLIDATION RIGHT LOWER LOBE AND TRACE PLEURAL EFFUSION LIKELY REPRESENTS A POSTOBSTRUCTIVE PNEUMONIA. CORONARY ARTERY DISEASE. Venous Doppler Study 12/20/16 00:00 IMPRESSION: NO EVIDENCE DVT OR SVT IN EITHER LEG. INCIDENTAL REFLUX IN THE GREATER SAPHENOUS VEIN. Fluoroscopy 12/21/16 00:00 IMPRESSION: Intra procedural imaging and fluoro Abdomen/Pelvis CT 12/22/16 13:34 IMPRESSION: There are small bilateral pleural effusions, increased on the right and new on the left since the prior study. Increased basilar airspace disease in both lower lobes. Similar increased interstitial and nodular opacities are noted elsewhere. Similar bulky mediastinal adenopathy. Moderate pericardial effusion, stable. Mild nonspecific retroperitoneal fat stranding. No obvious masses or bulky adenopathy.17 cm infra umbilical ventral hernia containing bowel without evidence for obstruction or incarceration. Chest X-Ray 12/23/16 06:00 IMPRESSION: Persistent small bilateral pleural effusions and consolidation in the bilateral lower lobes. Malpositioned right-sided central line extending into the soft tissues of the right neck, the tip is not visualized on this exam. Status: Image reviewed by me - agree with rads Assessment & Plan - Diagnosis (1) Atrial fibrillation Qualifiers: Atrial fibrillation type: unspecified Qualified Code(s): I48.91 - Unspecified atrial fibrillation Is this a current diagnosis for this admission?: YesPlan: stable; rate controlled off the cardizem at present. 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 (3) Acute exacerbation of chronic obstructive pulmonary disease (COPD) Is this a current diagnosis for this admission?: Yes (4) HTN (hypertension) Qualifiers: Hypertension type: essential hypertension Qualified Code(s): I10 - Essential (primary) hypertension Is this a current diagnosis for this admission?: Yes (5) Hypoxemia Is this a current diagnosis for this admission?: Yes (6) Mediastinal lymphadenopathy Is this a current diagnosis for this admission?: Yes (7) Pneumonia Qualifiers: Pneumonia type: due to unspecified organism Laterality: right Is this a current diagnosis for this admission?: YesPlan: possibly pneumonitis but leukocytosis seemed to immediately respond to IV Abx so continue same; cultures unhelpful so far. (8) Small cell carcinoma of lung Qualifiers: Laterality: unspecified laterality Qualified Code(s): C34.90 - Malignant neoplasm of unspecified part of unspecified bronchus or lung Is this a current diagnosis for this admission?: YesPlan: extensive stage due to metastatic disease noted outside the thorax in supraclavicular nodes; oncology following and anticipates starting chemo first of the week if family agreeable and pneumonia/pneumonitis under control - Time Time Spent with patient: 35 or more minutes Medications reviewed and adjusted accordingly: Yes - Plan Summary Plan Summary: discussed with multiple family members last night and again this morning, educating them as to the terminal nature of his advanced disease and current situation; they are undecided regarding use of chemo and will discuss with dr crisostomo further.
--- NOTE | 2016-12-23 13:09 | PROGRESS NOTE E ---
Critical Care Progress Note NAME: RIRI DUMONT : 1945 AGE: 71Y DATE: 12/23/2016 ROOM: 611 SUBJECTIVE: The patient is intubated and sedated. The patient is in atrial fibrillation with a controlled ventricular response without any SA or AV joseph blocking agents. He continues to be on Heri-Synephrine, which had to be increased to keep his systolic blood pressure up. Earlier, his systolic blood pressure was down to 88 and hence, Heri-Synephrine was increased. There is no ventricular arrhythmia seen. The patient does not appear to be fighting the ventilator. OBJECTIVE: GENERAL: On examination, the patient is mildly obese. He does not seem to be fighting the ventilator. VITAL SIGNS: He is febrile with a temperature of temperature of 97.7 degrees Fahrenheit. His pulse is 94 beats per minute, showing atrial fibrillation. His blood pressure is 112/80, respirations are 10 per minute on the ventilator. His O2 sats are 95% on FIO2 of 40%. His pulse rate is 94 beats per minute. HEENT: Head is atraumatic, normocephalic. Eyes: Pupils are equal, round, regular, and reactive to light. The rest of the ENT could not be examined due to patient being on the ventilator. NECK: Supple. There is no JVD. Carotids are equal. There is no bruit. There is no lymphadenopathy. There is no goiter. LUNGS: Show bilateral rhonchi and wheezing all over both lung chavez. There is hyperresonance on percussion. CARDIOVASCULAR: S1, S2 are heard. There is variable S1 intensity. There is no S3 gallop. There is no S4 gallop. There is a systolic murmur in left sternal border and the apex. There is no rub. ABDOMEN: Soft and nontender. There is no hepatosplenomegaly. Bowel sounds are well heard. EXTREMITIES: Femorals are diminished. There are no femoral bruits. Leg pulses are diminished. There is no pedal edema. There is no cyanosis or clubbing. There is no DVT or cellulitis. CENTRAL NERVOUS SYSTEM: Not examined. PSYCHIATRIC: Not examined. INTAKE/OUTPUT: The patient's 24-hour intake is 1,709 mL; output is 1,570 mL. DIAGNOSTIC DATA: The patient's chest x-ray shows persistent small bilateral pleural effusions and consolidation in the bilateral lower lobes *------* right-sided central line extending into the soft tissue of the right neck. The tip is not visualized on exam. The patient's white count is 13,900; hemoglobin is 11.2; hematocrit is 34.4 and platelet count is 86,000. The patient's sodium is 130, potassium 4.5, chloride is 94, CO2 is 29, BUN is 23, creatinine is 1.06, GFR is greater than 60, glucose is 121, calcium is 8.8, phosphorus is 4.3, magnesium is 2.4. His ABG's show a pH of 7.39, pCO2 is 44.5, PO2 is 97.2, O2 sats are 97.3% on an FIO2 of 60%. IMPRESSION: 1. HYPOTENSION MOST LIKELY SECONDARY TO SEPSIS, PNEUMONIA, AND RESPIRATORY FAILURE. Note that the patient is on heri-synephrine, which had to be increased to 70 mcg/min to keep his blood pressure above 100 systolic. 2. STATUS POST BRONCHIAL BIOPSY OF THE RIGHT LOWER LOBE LUNG MASS. THE BIOPSY CAME BACK POSITIVE FOR SMALL-CELL LUNG CANCER. The patient will be getting chemotherapy on Sunday or Sunday after all-body bone scan. 3. HYPERCAPNIC RESPIRATORY FAILURE. AT PRESENT THE PO2 AND PCO2 ARE WITHIN NORMAL LIMITS ON AN FIO2 OF 60% ON THE VENTILATOR. 4. ATRIAL FIBRILLATION WITH CONTROLLED VENTRICULAR RESPONSE WITHOUT ANY AV OR SA JOSEPH BLOCKING AGENTS. 5. MEDIASTINAL LYMPHADENOPATHY AND RIGHT SUPRACLAVICULAR LYMPHADENOPATHY SECONDARY TO SMALL CELL LUNG CANCER METASTASIS. 6. SMALL CELL LUNG CANCER. 7. BILATERAL LOWER LOBE PNEUMONIA WITH EFFUSION. 8. HYPERTENSION. AT PRESENT, BLOOD PRESSURE LOW, REQUIRING PRESSORS TO KEEP IT UP. 9. HISTORY OF ANXIETY. 10. HISTORY OF CORONARY ARTERY DISEASE. AT PRESENT, NO NE AND NO EKG CHANGES. 11. PERICARDIAL EFFUSION. NO EVIDENCE OF TAMPONADE, MOST LIKELY MALIGNANT. 12. THROMBOCYTOPENIA. THERE IS NO EVIDENCE OF BLEEDING. THERE IS NO PETECHIAE OR ECCHYMOSIS. RECOMMENDATION: Continue to try to wean the patient off the Heri-Synephrine. Continue steroids. Continue anti-COPD treatment. Continue ventilator support and oxygen. Continue antibiotics of Unasyn. Watch out for tamponade. Note, the patient was seen from 11:25 a.m. to 12:00 p.m. A total of 35 minutes were spent on this patient, critical care time. More than 60% of the time was spent in direct patient care and also reviewed the patient's medications, adjusting the patient's pressors, also discussions with the other physicians and coordinating care with the other caregiving providers on the case. Note, that the chest x-ray is as mentioned earlier, as per Radiology. Dr. Fields, the surgicalist has been made aware by the radiologist of the position of the catheter. Will follow with you. DICTATING PHYSICIAN: DEANDRA BOSTON M.D. [id number] PHY#: [id number] ID: [id number] JOB#: [id number] ACCT: [id number] cc: > MTDD
[2016-12-23 16:32] LABS: PROTHROMBIN TIME 13.2 SEC (11.4-15.4)
[2016-12-24] MEDS: DEXTROSE 5%-WATER 250 ML with PHENYLEPHRINE HCL 40 MG IV PRN ×2 (04:07)
[2016-12-24] MEDS: PROPOFOL 100 ML IV PRN ×3 (04:07→16:51)
[2016-12-24] MEDS: AMPICILLIN SODIUM/SULBACTAM NA 3 GM in NORMAL SALINE 100 ML IV SCH ×3 (06:17→17:03)
[2016-12-24 06:25] LABS: ARTERIAL BLOOD BASE EXCESS 2.1 mmol/L; ARTERIAL BLOOD O2 SATURATION 95.2 % (94-98)
[2016-12-24 06:36] LABS: ALANINE AMINOTRANSFERASE 46 U/L (21-72); ALBUMIN 2.5 g/dL (3.5-5.0); ALKALINE PHOSPHATASE 52 U/L (38-126); ANION GAP 7 (5-19); ASPARTATE AMINO TRANSFERASE 27 U/L (17-59); BILIRUBIN,DIRECT 0.6 mg/dL (0.0-0.4); BILIRUBIN,TOTAL 0.7 mg/dL (0.2-1.3); BLOOD UREA NITROGEN 29 mg/dL (7-20); CALCIUM 8.7 mg/dL (8.4-10.2); CARBON DIOXIDE 29 mmol/L (22-30); CHLORIDE 95 mmol/L (98-107); CREATININE RESULT 1.17 mg/dL (0.52-1.25); GLUCOSE 114 mg/dL (75-110); MAGNESIUM 2.4 mg/dL (1.6-2.3); PHOSPHORUS 4.3 mg/dL (2.5-4.5); POTASSIUM 4.9 mmol/L (3.6-5.0); SODIUM 130.5 mmol/L (137-145); TOTAL PROTEIN 5.3 g/dL (6.3-8.2)
[2016-12-24 06:50] LABS: HEMATOCRIT 33.7 % (37.9-51.0); HEMOGLOBIN 11.3 g/dL (13.5-17.0); HGB HCT DIFFERENCE 0.2; MEAN CORPUSCULAR HEMOGLOBIN 29.1 pg (27.0-33.4); MEAN CORPUSCULAR HGB CONC 33.6 g/dL (32.0-36.0); MEAN CORPUSCULAR VOLUME 87 fl (80-97); RED BLOOD COUNT 3.89 10^6/uL (4.35-5.55); RED CELL DISTRIBUTION WIDTH 14.9 % (11.5-14.0)
[2016-12-24 07:22] LABS: BAND NEUTROPHILS % (MANUAL) 1 % (3-5); BASOPHILS % (MANUAL) 0 % (0-2); EOSINOPHILS % (MANUAL) 0 % (0-6); LYMPHOCYTES % (MANUAL) 5 % (13-45); TOTAL CELLS COUNTED 100
[2016-12-24 07:24] LABS: ANISOCYTOSIS SLIGHT; POIKILOCYTOSIS SLIGHT
[2016-12-24 07:25] LABS: OVALOCYTES 1+
--- NOTE | 2016-12-24 08:11 | RADIOLOGY REPORT (SQ) ---
EXAM DESCRIPTION: CHEST SINGLE VIEW COMPLETED DATE/TIME: 12/24/2016 6:40 am REASON FOR STUDY: Intubated COMPARISON: CT chest 07/17/2017 Chest films 12/22/2016, 12/23/2016 EXAM PARAMETERS: NUMBER OF VIEWS: One view. TECHNIQUE: Single frontal radiographic view of the chest acquired. RADIATION DOSE: NA LIMITATIONS: Slightly rotated toward the NAPIER orientation FINDINGS: LUNGS AND PLEURA: Persistent collapse and consolidation in the right lower lobe with trace right pleural fluid, unchanged from previous plain films and CT 12/15/2016. There is airspace disease just above the left hemidiaphragm atelectasis versus pneumonia, also simila r compared to previous studies. Question new trace left pleural effusion. No pneumothorax MEDIASTINUM AND HILAR STRUCTURES: Sub- carinal mass is unchanged from CT. HEART AND VASCULAR STRUCTURES: Mild cardiomegaly. BONES: No acute findings. HARDWARE: Endotracheal tube tip 5 cm above the frankie. Nasogastric tube tip and side port in the sto mach. Right jugular central line coursing up the right jugular vein, unchanged. OTHER: No other significant finding. IMPRESSION: Persistent right lower lobe collapse and consolidation with small right pleural effusion . Minimal left basilar atelectasis with trace left pleural fluid Unchanged sub- carinal mass TECHNICAL DOCUMENTATION: JOB ID: [id number]
[2016-12-24] MEDS: IPRATROPIUM/ALBUTEROL 0.5-2.5 MG/3 ML AMPUL NEB SCH ×3 (08:20→21:05)
[2016-12-24] MEDS: METHYLPREDNISOLONE INJ 40 MG/1 ML SDV IV SCH ×2 (09:24→21:54)
[2016-12-24] MEDS: DOCUSATE SODIUM 100 MG CAPSULE PO SCH ×2 (09:24→17:03)
[2016-12-24] MEDS: PANTOPRAZOLE SODIUM 40 MG VIAL IV SCH (09:24)
[2016-12-24] MEDS: DILTIAZEM HCL/D5W 125 MG/125 ML RTUINJ IV PRN (11:17)
--- NOTE | 2016-12-24 11:31 | PDOC PROGRESS REPORT ---
Subjective Progress Note for:: 12/24/16 Subjective:: reason for visit: f/u new onset afib, COPD exac, hypoxia, adenopathy hospital course: per other's notes - "RIRI DUMONT is a 71 year old male who was an active smoker until 1 month ago when he developed worsening respiratory symptoms. He has had progressive cough, wheezing and shortness of breath for the past two months. He has been seen as an outpatient by his primary care team at Dr. Klein' office. I have obtained additional information: He has lost 40 pounds over the past few months. He had an out-patient CT chest on 2016 which showed extensive mediastinal adenopathy and other findings suggestive of metastatic cancer or lymphoma. There had not been enough time to address those findings before this admission. 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 On the day of admission he was barely able to breathe and presented to the emergency department. He was found to have significant wheezing and chest congestion. He was afebrile. His white blood count was 7.3. His chest x-ray showed right basilar consolidate-effusion with some interval diminished right lung volume. Of note, he has a known right pleural effusion. The patient was admitted with acute exacerbation of COPD and continues to improve with IV fluids, antibiotics, bronchodilators, corticosteroids, and oxygen supplementation. He feels better at rest but still c/o dyspnea on minimal exertion. The patient has been seen by Dr. White of pulmonology and I have discussed the case with him. A follow-up CT of the chest was done on and bronchoscopy is planned for Tuesday 12/19. Overall, he feels better with the respiratory treatments but is still significantly REESE." ekg performed Sunday night for reasons not clear to me at this time but shows new onset afib, confirmed on repeat this morning. he is asymptomatic as to palpitations, still feels fatigued and breathless with minimal exertion but denies chest pain, cough with phlegm, fever/chills. his nurse and indicate he is a bit confused this morning, tried to pour his gatorade onto his IV site b/c he "needed to water the garden". as of Sunday his mental state has cleared back to baseline. His HR is better controlled on short acting cardizem and his breathing is much improved. He is s/p bronchoscopy with extensive bronchial lavage and trans-bronchial Bx but unfortunately required intubation and mechanical ventilation post procedure and remains so this morning. New developing bilat infiltrate with probable pneumonitis, possible pneumonia with improving leukocytosis after initiation of abx. remains intubated and sedated ROS: unobtainable due to sedation Physical Exam Vital Signs: Temp Pulse Resp BP Pulse Ox 99.1 F 109 H 23 H 117/74 95 12/24/16 08:00 12/24/16 08:20 12/24/16 11:00 12/24/16 10:55 12/24/16 11:00 Intake & Output 12/23/16 12/24/16 12/25/16 06:59 06:59 06:59 Intake Total 1709 2009 Output Total 1570 1735 45 Balance 139 275 -45 Weight 92.1 kg 93.1 kg General appearance: PRESENT: no acute distress, obese, well-developed, well- nourished Head exam: PRESENT: atraumatic, normocephalic Eye exam: ABSENT: conjunctival injection, scleral icterus Mouth exam: PRESENT: moist, tongue midline Teeth exam: PRESENT: poor dentation Neck exam: PRESENT: lymphadenopathy - as before. ABSENT: tracheal deviation Respiratory exam: PRESENT: rales. ABSENT: accessory muscle use, rhonchi, unlabored, wheezes Cardiovascular exam: PRESENT: irregular rhythm, systolic murmur, tachycardia Pulses: PRESENT: normal radial pulses, normal dorsalis pedis pul GI/Abdominal exam: PRESENT: hypoactive bowel sounds - high residuals and no TFs at present as a result, soft. ABSENT: tenderness - no grimace on palpation Gentrourinary exam: PRESENT: indwelling catheter. ABSENT: scrotal swelling Extremities exam: PRESENT: +2 edema Neurological exam: PRESENT: altered - sedated on diprivan 40mcg Skin exam: ABSENT: dry - moit, warm - cool Results Laboratory Results: 12/24/16 06:10 12/24/16 06:10 12/24/16 12/24/16 12/24/16 06:10 06:10 06:15 WBC 13.0 H RBC 3.89 L Hgb 11.3 L Hct 33.7 L MCV 87 MCH 29.1 MCHC 33.6 RDW 14.9 H Plt Count 98 L Seg Neutrophils % Not Reportable Lymphocytes % Not Reportable Monocytes % Not Reportable Eosinophils % Not Reportable Basophils % Not Reportable Absolute Neutrophils Not Reportable Absolute Lymphocytes Not Reportable Absolute Monocytes Not Reportable Absolute Eosinophils Not Reportable Absolute Basophils Not Reportable Carbonic Acid 1.29 HCO3/H2CO3 Ratio 20:1 ABG pH 7.42 ABG pCO2 42.8 ABG pO2 74.9 L ABG HCO3 27.0 H ABG O2 Saturation 95.2 ABG Base Excess 2.1 FiO2 40% Sodium 130.5 L Potassium 4.9 Chloride 95 L Carbon Dioxide 29 Anion Gap 7 BUN 29 H Creatinine 1.17 Est GFR ( Amer) > 60 Est GFR (Non-Af Amer) > 60 Glucose 114 H Calcium 8.7 Phosphorus 4.3 Magnesium 2.4 H Total Bilirubin 0.7 AST 27 ALT 46 Alkaline Phosphatase 52 Total Protein 5.3 L Albumin 2.5 L 12/21/16 11:44 Bronchial Washings Fungal Smear - Final 12/21/16 11:44 Bronchial Washings Fungal Smear - Final 12/21/16 11:44 Bronchial Washings Fungal Smear - Final 12/21/16 11:44 Bronchial Washings Gram Stain - Final 12/21/16 11:44 Bronchial Washings Bronchial Washings Culture - Final REDUCED NORMAL ROSALIE 12/22/16 12/22/16 04:51 04:51 Creatine Kinase 32 L CK-MB (CK-2) 0.87 Troponin I 0.040 Impressions: Chest CT 12/15/16 00:00 IMPRESSION: BULKY MEDIASTINAL AND HILAR LYMPHADENOPATHY AND RIGHT SUPRACLAVICULAR LYMPHADENOPATHY DETAILED ABOVE. FINDINGS ARE MOST CONCERNING FOR LYMPHOMA WITH METASTATIC DISEASE ALSO IN THE DIFFERENTIAL. LYMPH NODES SHOULD BE AMENABLE TO ENDOBRONCHIAL BIOPSY. MULTIFOCAL AIRSPACE DISEASE WITH CONSOLIDATION RIGHT LOWER LOBE AND TRACE PLEURAL EFFUSION LIKELY REPRESENTS A POSTOBSTRUCTIVE PNEUMONIA. CORONARY ARTERY DISEASE. Venous Doppler Study 12/20/16 00:00 IMPRESSION: NO EVIDENCE DVT OR SVT IN EITHER LEG. INCIDENTAL REFLUX IN THE GREATER SAPHENOUS VEIN. Fluoroscopy 12/21/16 00:00 IMPRESSION: Intra procedural imaging and fluoro Abdomen/Pelvis CT 12/22/16 13:34 IMPRESSION: There are small bilateral pleural effusions, increased on the right and new on the left since the prior study. Increased basilar airspace disease in both lower lobes. Similar increased interstitial and nodular opacities are noted elsewhere. Similar bulky mediastinal adenopathy. Moderate pericardial effusion, stable. Mild nonspecific retroperitoneal fat stranding. No obvious masses or bulky adenopathy.17 cm infra umbilical ventral hernia containing bowel without evidence for obstruction or incarceration. Chest X-Ray 12/24/16 06:00 IMPRESSION: Persistent right lower lobe collapse and consolidation with small right pleural effusion. Minimal left basilar atelectasis with trace left pleural fluid Unchanged sub- carinal mass Status: Image reviewed by me - agree with rads Assessment & Plan - Diagnosis (1) Atrial fibrillation Qualifiers: Atrial fibrillation type: unspecified Qualified Code(s): I48.91 - Unspecified atrial fibrillation Is this a current diagnosis for this admission?: YesPlan: worse; rate variably not as well controlled, off the cardizem at present. resume anticoagulation and monitor for bleeding. defer to dr vega regarding further treatment of his afib. (2) Hyponatremia Is this a current diagnosis for this admission?: YesPlan: stable; likely related to SCLC and SIADH. (3) Pneumonia Qualifiers: Pneumonia type: due to unspecified organism Laterality: right Is this a current diagnosis for this admission?: YesPlan: unchanged; cxr about the same, no fevers and leukocytosis improved from 19.8 to 13.0; possibly pneumonitis but leukocytosis seemed to immediately respond to IV Abx so continue same; cultures unhelpful so far. (4) Acute exacerbation of chronic obstructive pulmonary disease (COPD) Is this a current diagnosis for this admission?: Yes (5) HTN (hypertension) Qualifiers: Hypertension type: essential hypertension Qualified Code(s): I10 - Essential (primary) hypertension Is this a current diagnosis for this admission?: YesPlan: remains hypotensive and on vasopressor, elva at 60mcg failing attempts to wean overnight. (6) Hypoxemia Is this a current diagnosis for this admission?: YesPlan: multifactorial related to the above. continue mechanical ventilation per pulmonary (7) Mediastinal lymphadenopathy Is this a current diagnosis for this admission?: Yes (8) Small cell carcinoma of lung Qualifiers: Laterality: unspecified laterality Qualified Code(s): C34.90 - Malignant neoplasm of unspecified part of unspecified bronchus or lung Is this a current diagnosis for this admission?: YesPlan: extensive stage due to metastatic disease noted outside the thorax in supraclavicular nodes; oncology following and anticipates starting chemo first of the week if family agreeable and pneumonia/pneumonitis under control - Time Time Spent with patient: 35 or more minutes - time spent at the bedside with his brother
--- NOTE | 2016-12-24 12:07 | RADIOLOGY REPORT (SQ) ---
EXAM DESCRIPTION: KUB/ABDOMEN (SINGLE VIEW) COMPLETED DATE/TIME: 12/24/2016 11:57 am REASON FOR STUDY: bowel obstruction COMPARISON: 12/22/2016 CT. NUMBER OF VIEWS: One view. TECHNIQUE: Supine radiographic image of the abdomen acquired. LIMITATIONS: Portable technique. A portion of the abdominal wall is out of the field of view to the left of midline with slight rotation. FINDINGS: BOWEL GAS PATTERN: Stool and gas in the colon. No significantly dilated loops. CALCIFICATIONS: Vascular calcifications in the pelvis. SOFT TISSUES: No gross mass or suggestion of organomegaly. HARDWARE: Nasogastric tube down, tip looks grossly appropriate. Blake catheter in place. BONES: Osteopenic. OTHER: No other significant finding. IMPRESSION: Appropriate nasogastric tube. Stool and gas in the colon with nonobstructive pattern pernell singleton. TECHNICAL DOCUMENTATION: JOB ID: [id number] [employer]- All Rights Reserved
--- NOTE | 2016-12-24 12:13 | PROGRESS NOTE E ---
Progress Note NAME: RIRI DUMONT : 1945 AGE: 71Y DATE: 12/24/2016 ROOM: 611 NOTE: I was with the patient from 10:20 a.m. to 11:00 a.m. A total of 40 minutes spent on this critical care. SUBJECTIVE: The patient continues to be intubated and sedated. He is in atrial fibrillation with ventricular response of 106 beats per minute. He is still on Heri-Synephrine at 60 mcg per minute. Unable to titrate this drip down further. There are no ventricular arrhythmias. The patient is not fighting the ventilator. OBJECTIVE: GENERAL: On examination, the patient is mildly obese. He does not seem to be fighting the ventilator. VITAL SIGNS: His temperature is 99 degrees Fahrenheit. His pulse is 106 beats per minute. Blood pressure 117/74. Respirations are 18 per minute. His O2 sats are 95% on FIO2 of 35%. HEENT: Head is atraumatic, normocephalic. Eyes: Pupils are equal, round, regular, and reactive to light. The rest of the ENT could not be examined due to patient being on the ventilator. NECK: Supple. There is no JVD. Carotids are equal. There is no bruit. There is no lymphadenopathy. There is no goiter. LUNGS: Show bronchial breath sounds in the right lower lobe with dullness and a few crackles. The rest of the lungs are clear without any rhonchi, rales, or wheezing. There is diminished air entry throughout. There is hyperresonance in the rest of the lungs, except the right lower lobe, which has dullness. CARDIOVASCULAR: S1, S2 are heard. There is variable S1 intensity. There is no S3 gallop. There is no S4 gallop. There is a systolic murmur in left sternal border in the apex. There is no rub. ABDOMEN: Soft and nontender. There is no hepatosplenomegaly. Bowel sounds are well heard. EXTREMITIES: Femorals are diminished. There are no femoral bruits. Leg pulses are diminished. There is no pedal edema. There is no cyanosis or clubbing. There is no DVT or cellulitis. CENTRAL NERVOUS SYSTEM: Not examined. PSYCHIATRIC: Not examined. The patient's 24 hour intake is 2010 mL, output is 1735 mL. DIAGNOSTIC DATA: The patient's chest x-ray shows persistent right lower lobe collapse and consolidation with small right pleural effusion. Minimal left basilar atelectasis with *------* pleural effusion. Unchanged subcarinal mass. There is no evidence of congestive heart failure, except for mild cardiomegaly. The patient's white count is 13,000; hemoglobin is 11.3; hematocrit is 33.7 and platelet count is 98,000. The patient's sodium is 130.5, potassium 4.9, chloride is 95, CO2 is 29, BUN is 29, creatinine is 1.17, GFR is greater than 60, glucose is 114, calcium is 8.7, phosphorus is 4.3, magnesium is 2.4. His liver function tests show a slightly elevated direct bilirubin of 0.6. The rest of the liver function tests are normal. His albumin is 2.5 and his total protein is 5.3. His ABG's show a pH of 7.42, pCO2 is 42.8, PO2 is low at 74.9, O2 sats are 95.2% on an FIO2 of 40%. IMPRESSION: 1. HYPOTENSION MOST LIKELY SECONDARY TO SEPSIS, PNEUMONIA, AND RESPIRATORY FAILURE. Note that the patient is presently on 60 mcg/min of heri-synephrine to keep his blood pressure up. 2. ATRIAL FIBRILLATION WITH FAST VENTRICULAR RESPONSE. We will try to start the patient on a small dose of Cardizem under the cover of heri-synephrine. This may help to keep the patient's heart rate down when the patient is extubated. 3. STATUS POST BRONCHIAL BIOPSY OF THE RIGHT LOWER LOBE MASS. THE BIOPSY CAME BACK POSITIVE FOR SMALL-CELL LUNG CANCER. The patient will be getting chemotherapy on Sunday or Sunday after an all-body bone scan. 4. RESPIRATORY FAILURE, AT PRESENT SLIGHTLY HYPOXIC ON AN FIO2 OF 40%. 5. SMALL CELL LUNG CANCER. 6. MEDIASTINAL LYMPHADENOPATHY AND RIGHT SUPRACLAVICULAR LYMPHADENOPATHY AND ALSO CONSOLIDATION AND COLLAPSE OF THE RIGHT LOWER LOBE, MOST LIKELY SECONDARY TO SMALL CELL LUNG CANCER WITH METS. 7. BILATERAL LOWER LOBE PNEUMONIA WITH EFFUSION. The left seems to be getting better, the right is about the same. 8. HISTORY OF HYPERTENSION. AT PRESENT, THE PATIENT IS HYPOTENSIVE, REQUIRING PRESSORS TO KEEP IT UP. 9. HISTORY OF ANXIETY. 10. HISTORY OF CORONARY ARTERY DISEASE. AT PRESENT, NO MYOCARDIAL INFARCTION AND NO EKG CHANGES. 11. PERICARDIAL EFFUSION. NO EVIDENCE OF TAMPONADE, MOST LIKELY MALIGNANT. 12. THROMBOCYTOPENIA. THERE IS NO EVIDENCE OF BLEEDING. THERE IS NO PETECHIAE OR ECCHYMOSIS. Note, on examination, there is no *------*. RECOMMENDATIONS: We will start the patient on a small dose of IV Cardizem at 2.5 mg/hour to control the ventricular response of the atrial fibrillation. We will try to wean the patient off the heri-synephrine. Continue Unasyn. Note that the patient is on Lovenox at 90 mg subcutaneously q.12 h. Would watch the patient for bleeding, especially in view of the patient's thrombocytopenia. Continue ipratropium/albuterol nebulizer treatment. Continue meter prednisone at 40 mg IV q.12 h. and try to taper it. Try to taper the phenylephrine. Would be cautious with the patient's Lovenox in view of the thrombocytopenia. Note, 40 minutes of critical care time spent on the patient, including more than 50% of the time spent in direct patient care and also reviewed the patient's medications, adding and adjusting medications, and discussions with the attending physician on the case and also coordinating the management plan with the other caregiving providers on the case. Hopefully, since the lungs are clear elsewhere, except the right lower lobe, hopefully the patient can be extubated today. We will follow with you. DICTATING PHYSICIAN: DEANDRA BOSTON M.D. [id number] KATHYAY#: [id number] ID: [id number] JOB#: [id number] ACCT: [id number] cc: >
--- NOTE | 2016-12-24 15:31 | PDOC PROGRESS REPORT ---
Subjective Progress Note for:: 12/24/16 Subjective:: intubated Physical Exam Vital Signs: Temp Pulse Resp BP Pulse Ox 99.0 F 103 H 17 105/65 93 12/24/16 12:00 12/24/16 14:17 12/24/16 14:45 12/24/16 14:40 12/24/16 15:13 Intake & Output 12/23/16 12/24/16 12/25/16 06:59 06:59 06:59 Intake Total 1709 2009 Output Total 1570 1735 320 Balance 139 275 -320 Weight 92.1 kg 93.1 kg General appearance: PRESENT: no acute distress, disheveled, well-developed Head exam: PRESENT: atraumatic, normocephalic Eye exam: PRESENT: conjunctiva pale Mouth exam: PRESENT: dry mucosa, neck supple, other - ET tube Neck exam: ABSENT: carotid bruit, JVD, lymphadenopathy, thyromegaly Respiratory exam: PRESENT: decreased breath sounds, prolonged expiratory phas, rales, rhonchi, unlabored, other - R hemithorax slighyly greater than L Cardiovascular exam: PRESENT: irregular rhythm Pulses: PRESENT: normal radial pulses GI/Abdominal exam: PRESENT: normal bowel sounds, soft. ABSENT: distended, guarding, mass, organolmegaly, rebound, tenderness Rectal exam: PRESENT: deferred Gentrourinary exam: PRESENT: indwelling catheter Skin exam: PRESENT: dry Results Laboratory Results: 12/24/16 06:10 12/24/16 06:10 12/24/16 12/24/16 12/24/16 06:10 06:10 06:15 WBC 13.0 H RBC 3.89 L Hgb 11.3 L Hct 33.7 L MCV 87 MCH 29.1 MCHC 33.6 RDW 14.9 H Plt Count 98 L Seg Neutrophils % Not Reportable Lymphocytes % Not Reportable Monocytes % Not Reportable Eosinophils % Not Reportable Basophils % Not Reportable Absolute Neutrophils Not Reportable Absolute Lymphocytes Not Reportable Absolute Monocytes Not Reportable Absolute Eosinophils Not Reportable Absolute Basophils Not Reportable Carbonic Acid 1.29 HCO3/H2CO3 Ratio 20:1 ABG pH 7.42 ABG pCO2 42.8 ABG pO2 74.9 L ABG HCO3 27.0 H ABG O2 Saturation 95.2 ABG Base Excess 2.1 FiO2 40% Sodium 130.5 L Potassium 4.9 Chloride 95 L Carbon Dioxide 29 Anion Gap 7 BUN 29 H Creatinine 1.17 Est GFR ( Amer) > 60 Est GFR (Non-Af Amer) > 60 Glucose 114 H Calcium 8.7 Phosphorus 4.3 Magnesium 2.4 H Total Bilirubin 0.7 AST 27 ALT 46 Alkaline Phosphatase 52 Total Protein 5.3 L Albumin 2.5 L 12/21/16 11:44 Bronchial Washings Fungal Smear - Final 12/21/16 11:44 Bronchial Washings Fungal Smear - Final 12/21/16 11:44 Bronchial Washings Fungal Smear - Final 12/21/16 11:44 Bronchial Washings Gram Stain - Final 12/21/16 11:44 Bronchial Washings Bronchial Washings Culture - Final REDUCED NORMAL ROSALIE 12/22/16 12/22/16 04:51 04:51 Creatine Kinase 32 L CK-MB (CK-2) 0.87 Troponin I 0.040 Impressions: Chest CT 12/15/16 00:00 IMPRESSION: BULKY MEDIASTINAL AND HILAR LYMPHADENOPATHY AND RIGHT SUPRACLAVICULAR LYMPHADENOPATHY DETAILED ABOVE. FINDINGS ARE MOST CONCERNING FOR LYMPHOMA WITH METASTATIC DISEASE ALSO IN THE DIFFERENTIAL. LYMPH NODES SHOULD BE AMENABLE TO ENDOBRONCHIAL BIOPSY. MULTIFOCAL AIRSPACE DISEASE WITH CONSOLIDATION RIGHT LOWER LOBE AND TRACE PLEURAL EFFUSION LIKELY REPRESENTS A POSTOBSTRUCTIVE PNEUMONIA. CORONARY ARTERY DISEASE. Venous Doppler Study 12/20/16 00:00 IMPRESSION: NO EVIDENCE DVT OR SVT IN EITHER LEG. INCIDENTAL REFLUX IN THE GREATER SAPHENOUS VEIN. Fluoroscopy 12/21/16 00:00 IMPRESSION: Intra procedural imaging and fluoro Abdomen/Pelvis CT 12/22/16 13:34 IMPRESSION: There are small bilateral pleural effusions, increased on the right and new on the left since the prior study. Increased basilar airspace disease in both lower lobes. Similar increased interstitial and nodular opacities are noted elsewhere. Similar bulky mediastinal adenopathy. Moderate pericardial effusion, stable. Mild nonspecific retroperitoneal fat stranding. No obvious masses or bulky adenopathy.17 cm infra umbilical ventral hernia containing bowel without evidence for obstruction or incarceration. KUB X-Ray 12/24/16 00:00 IMPRESSION: Appropriate nasogastric tube. Stool and gas in the colon with nonobstructive pattern overall. Chest X-Ray 12/24/16 06:00 IMPRESSION: Persistent right lower lobe collapse and consolidation with small right pleural effusion. Minimal left basilar atelectasis with trace left pleural fluid Unchanged sub- carinal mass Assessment & Plan - Diagnosis (1) Acute exacerbation of chronic obstructive pulmonary disease (COPD) Is this a current diagnosis for this admission?: Yes (2) COPD (chronic obstructive pulmonary disease) Qualifiers: COPD type: COPD with acute exacerbation Qualified Code(s): J44.1 - Chronic obstructive pulmonary disease with (acute) exacerbation Is this a current diagnosis for this admission?: Yes (3) HTN (hypertension) Qualifiers: Hypertension type: essential hypertension Qualified Code(s): I10 - Essential (primary) hypertension Is this a current diagnosis for this admission?: Yes (4) Mediastinal lymphadenopathy Is this a current diagnosis for this admission?: YesPlan: SCLC (5) Atrial fibrillation Qualifiers: Atrial fibrillation type: unspecified Qualified Code(s): I48.91 - Unspecified atrial fibrillation Is this a current diagnosis for this admission?: Yes - Time Critical Time spent with patient: 35 or more minutes
[2016-12-24] MEDS ORDERED: ENOXAPARIN SODIUM INJ 100 MG/1 ML DISP.SYRIN SUBCUT SCH (22:00)
[2016-12-25] MEDS: DILTIAZEM HCL/D5W 125 ML IV PRN ×2 (00:45→18:03)
[2016-12-25] MEDS: AMPICILLIN SODIUM/SULBACTAM NA 3 GM in NORMAL SALINE 100 ML IV SCH ×4 (02:00→17:09)
[2016-12-25] MEDS: PROPOFOL 100 ML IV PRN ×2 (02:02→06:26)
[2016-12-25] MEDS: IPRATROPIUM/ALBUTEROL 0.5-2.5 MG/3 ML AMPUL NEB SCH ×4 (02:27→20:40)
[2016-12-25] MEDS: DEXTROSE 5%-WATER 250 ML with PHENYLEPHRINE HCL 40 MG IV PRN ×2 (05:04)
[2016-12-25 05:05] LABS: ARTERIAL BLOOD BASE EXCESS 3.6 mmol/L; ARTERIAL BLOOD O2 SATURATION 96.3 % (94-98)
[2016-12-25 05:22] LABS: ANION GAP 6 (5-19); BLOOD UREA NITROGEN 37 mg/dL (7-20); CALCIUM 8.6 mg/dL (8.4-10.2); CARBON DIOXIDE 29 mmol/L (22-30); CHLORIDE 97 mmol/L (98-107); CREATININE RESULT 1.15 mg/dL (0.52-1.25); GLUCOSE 111 mg/dL (75-110); MAGNESIUM 2.7 mg/dL (1.6-2.3); PHOSPHORUS 4.4 mg/dL (2.5-4.5); POTASSIUM 4.8 mmol/L (3.6-5.0); SODIUM 132.4 mmol/L (137-145)
[2016-12-25 05:26] LABS: HEMATOCRIT 32.7 % (37.9-51.0); HEMOGLOBIN 10.9 g/dL (13.5-17.0); MEAN CORPUSCULAR HEMOGLOBIN 28.6 pg (27.0-33.4); MEAN CORPUSCULAR HGB CONC 33.2 g/dL (32.0-36.0); MEAN CORPUSCULAR VOLUME 86 fl (80-97); RED CELL DISTRIBUTION WIDTH 14.7 % (11.5-14.0); WHITE BLOOD COUNT 12.5 10^3/uL (4.0-10.5)
--- NOTE | 2016-12-25 08:34 | PDOC PROGRESS REPORT ---
Subjective Progress Note for:: 12/25/16 Subjective:: No acute events overnight, patient still on pressors, pulmonology is considering extubation today. Physical Exam Vital Signs: Temp Pulse Resp BP Pulse Ox 98.8 F 91 17 131/70 H 95 12/25/16 08:00 12/25/16 08:00 12/25/16 08:00 12/25/16 08:00 12/25/16 08:00 Intake & Output 12/24/16 12/25/16 12/26/16 06:59 06:59 06:59 Intake Total 2009 1307 Output Total 1735 8700 75 Balance 275 -372 -75 Weight 93.1 kg 92.7 kg General appearance: PRESENT: no acute distress, well-developed, well-nourished Head exam: PRESENT: atraumatic, normocephalic Eye exam: PRESENT: conjunctiva pink, EOMI, PERRLA. ABSENT: scleral icterus Ear exam: PRESENT: normal external ear exam Mouth exam: PRESENT: moist, tongue midline Neck exam: ABSENT: carotid bruit, JVD, lymphadenopathy, thyromegaly Respiratory exam: PRESENT: clear to auscultation stewart. ABSENT: rales, rhonchi, wheezes Cardiovascular exam: PRESENT: RRR. ABSENT: diastolic murmur, rubs, systolic murmur Pulses: PRESENT: normal dorsalis pedis pul Vascular exam: PRESENT: normal capillary refill GI/Abdominal exam: PRESENT: normal bowel sounds, soft. ABSENT: distended, guarding, mass, organolmegaly, rebound, tenderness Rectal exam: PRESENT: deferred Extremities exam: PRESENT: full ROM. ABSENT: calf tenderness, clubbing, pedal edema Neurological exam: PRESENT: alert, awake, oriented to person, oriented to place , oriented to time, oriented to situation, CN II-XII grossly intact. ABSENT: motor sensory deficit Psychiatric exam: PRESENT: appropriate affect, normal mood. ABSENT: homicidal ideation, suicidal ideation Skin exam: PRESENT: dry, intact, warm. ABSENT: cyanosis, rash Results Laboratory Results: 12/25/16 04:30 12/25/16 04:30 12/25/16 12/25/16 12/25/16 04:30 04:30 04:40 WBC 12.5 H RBC 3.80 L Hgb 10.9 L Hct 32.7 L MCV 86 MCH 28.6 MCHC 33.2 RDW 14.7 H Plt Count 85 L Carbonic Acid 1.28 HCO3/H2CO3 Ratio 22:1 ABG pH 7.44 ABG pCO2 42.5 ABG pO2 81.2 ABG HCO3 28.2 H ABG O2 Saturation 96.3 ABG Base Excess 3.6 FiO2 40% Sodium 132.4 L Potassium 4.8 Chloride 97 L Carbon Dioxide 29 Anion Gap 6 BUN 37 H Creatinine 1.15 Est GFR ( Amer) > 60 Est GFR (Non-Af Amer) > 60 Glucose 111 H Calcium 8.6 Phosphorus 4.4 Magnesium 2.7 H 12/21/16 11:44 Bronchial Washings Fungal Smear - Final 12/21/16 11:44 Bronchial Washings Fungal Smear - Final 12/21/16 11:44 Bronchial Washings Fungal Smear - Final 12/22/16 12/22/16 04:51 04:51 Creatine Kinase 32 L CK-MB (CK-2) 0.87 Troponin I 0.040 Impressions: Chest CT 12/15/16 00:00 IMPRESSION: BULKY MEDIASTINAL AND HILAR LYMPHADENOPATHY AND RIGHT SUPRACLAVICULAR LYMPHADENOPATHY DETAILED ABOVE. FINDINGS ARE MOST CONCERNING FOR LYMPHOMA WITH METASTATIC DISEASE ALSO IN THE DIFFERENTIAL. LYMPH NODES SHOULD BE AMENABLE TO ENDOBRONCHIAL BIOPSY. MULTIFOCAL AIRSPACE DISEASE WITH CONSOLIDATION RIGHT LOWER LOBE AND TRACE PLEURAL EFFUSION LIKELY REPRESENTS A POSTOBSTRUCTIVE PNEUMONIA. CORONARY ARTERY DISEASE. Venous Doppler Study 12/20/16 00:00 IMPRESSION: NO EVIDENCE DVT OR SVT IN EITHER LEG. INCIDENTAL REFLUX IN THE GREATER SAPHENOUS VEIN. Fluoroscopy 12/21/16 00:00 IMPRESSION: Intra procedural imaging and fluoro Abdomen/Pelvis CT 12/22/16 13:34 IMPRESSION: There are small bilateral pleural effusions, increased on the right and new on the left since the prior study. Increased basilar airspace disease in both lower lobes. Similar increased interstitial and nodular opacities are noted elsewhere. Similar bulky mediastinal adenopathy. Moderate pericardial effusion, stable. Mild nonspecific retroperitoneal fat stranding. No obvious masses or bulky adenopathy.17 cm infra umbilical ventral hernia containing bowel without evidence for obstruction or incarceration. KUB X-Ray 12/24/16 00:00 IMPRESSION: Appropriate nasogastric tube. Stool and gas in the colon with nonobstructive pattern overall. Chest X-Ray 12/24/16 06:00 IMPRESSION: Persistent right lower lobe collapse and consolidation with small right pleural effusion. 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 We completely agree with that, we will put treatment orders on hold, will still get bone scan today for further evaluation. Today spent about 45 minutes in discussion with family. - Time Time Spent with patient: 35 or more minutes Critical Time spent with patient: 35 or more minutes
[2016-12-25] MEDS: PANTOPRAZOLE SODIUM 40 MG VIAL IV SCH (09:44)
[2016-12-25] MEDS: METHYLPREDNISOLONE INJ 40 MG/1 ML SDV IV SCH ×2 (09:44→21:01)
[2016-12-25] MEDS: DOCUSATE SODIUM 100 MG CAPSULE PO SCH ×2 (09:47→17:07)
[2016-12-25 09:59] LABS: APPEARANCE,URINE SLIGHTLY-CLOUDY; BILIRUBIN,URINE NEGATIVE (NEGATIVE); GLUCOSE, URINE NEGATIVE (NEGATIVE); KETONES,URINE NEGATIVE (NEGATIVE); LEUKOCYTE ESTERASE,URINE NEGATIVE (NEGATIVE); NITRITE,URINE NEGATIVE (NEGATIVE); PROTEIN,URINE NEGATIVE (NEGATIVE); URINE SPECIFIC GRAVITY 1.016; UROBILINOGEN,URINE NEGATIVE mg/dL (<2.0)
--- NOTE | 2016-12-25 12:06 | PDOC PROGRESS REPORT ---
Subjective Progress Note for:: 12/25/16 Subjective:: reason for visit: f/u new onset afib, COPD exac, hypoxia, adenopathy hospital course: per other's notes - "RIRI DUMONT is a 71 year old male who was an active smoker until 1 month ago when he developed worsening respiratory symptoms. He has had progressive cough, wheezing and shortness of breath for the past two months. He has been seen as an outpatient by his primary care team at Dr. Klein' office. I have obtained additional information: He has lost 40 pounds over the past few months. He had an out-patient CT chest on 2016 which showed extensive mediastinal adenopathy and other findings suggestive of metastatic cancer or lymphoma. There had not been enough time to address those findings before this admission. The patient's symptoms significantly worsened over the week [employer]. On the day of admission he was barely able to breathe and presented to the emergency department. He was found to have significant wheezing and chest congestion. He was afebrile. His white blood count was 7.3. His chest x-ray showed right basilar consolidate-effusion with some interval diminished right lung volume. Of note, he has a known right pleural effusion. The patient was admitted with acute exacerbation of COPD and continues to improve with IV fluids, antibiotics, bronchodilators, corticosteroids, and oxygen supplementation. He feels better at rest but still c /o dyspnea on minimal exertion. The patient has been seen by Dr. White of pulmonology and I have discussed the case with him. A follow-up CT of the chest was done on 12/15 and bronchoscopy is planned for Tuesday 12/19. Overall, he (initially) feels better with the respiratory treatments but is still significantly REESE." ekg performed Sunday night for reasons not clear to me shows new onset afib, confirmed on repeat when I arrived Sunday. he is asymptomatic as to palpitations, still feels fatigued and breathless with minimal exertion but denied chest pain, cough with phlegm, fever/chills. his nurse and his indicate he was a bit confused that morning, tried to pour his gatorade onto his IV site b/c he "needed to water the garden" but as of Sunday his mental state has cleared back to baseline. His HR is better controlled on short acting oral cardizem and his breathing also continued to improve. However, in the workup of the mediastinal mass, and with Dr Cox's blessing regarding his cardiac status, he underwent bronchoscopy with extensive bronchial lavage and trans-bronchial Bx and unfortunately required intubation and mechanical ventilation post procedure until this Sunday morning. He developed new bilat infiltrates with probable pneumonitis, possible pneumonia and septic shock after bronchoscopy with improving leukocytosis and hemodynamics after initiation of abx. He remains on cardizem gtt for control of his vent response to pesistent afib, anticoagulation on hold for procedures and due to worsening thrombocytopenia. Cultures from bronchial lavage and tracheal aspirate are unrevealing. Unfortunately his Bx shows extensive stage SCLC and oncology is hoping to initiate chemo followed by XRT once his condition stabilizes. The patient has been intubated and sedated and is unaware of his cancer diagnosis to my knowledge as of this writing. He is making steady progress and might actually extubate later today, per my discussion with dr white. remains intubated and sedated ROS: unobtainable due to sedation Physical Exam Vital Signs: Temp Pulse Resp BP Pulse Ox 98.6 F 105 H 18 122/60 92 12/25/16 10:00 12/25/16 10:04 12/25/16 11:15 12/25/16 11:10 12/25/16 11:15 Intake & Output 12/24/16 12/25/16 12/26/16 06:59 06:59 06:59 Intake Total 20098 43 Output Total 5 1680 280 Balance 275 -372 -237 Weight 93.1 kg 92.7 kg General appearance: PRESENT: no acute distress, well-developed, well-nourished Head exam: PRESENT: atraumatic, normocephalic Eye exam: ABSENT: conjunctival injection, scleral icterus Mouth exam: PRESENT: dry mucosa, neck supple Neck exam: PRESENT: lymphadenopathy - rock hard 3cm node supraclavicular. ABSENT: JVD, tracheal deviation Respiratory exam: PRESENT: crackles - bases. ABSENT: accessory muscle use, rales, rhonchi, tachypnea, unlabored, wheezes Cardiovascular exam: PRESENT: irregular rhythm, systolic murmur, tachycardia - mild Pulses: PRESENT: normal radial pulses, normal dorsalis pedis pul GI/Abdominal exam: PRESENT: hypoactive bowel sounds, soft, other - NGT in place ; no TFs due to persistent high residuals. ABSENT: distended, tenderness - no grimace Gentrourinary exam: PRESENT: indwelling catheter. ABSENT: scrotal swelling Extremities exam: PRESENT: +2 edema Neurological exam: PRESENT: altered - sedated Skin exam: PRESENT: warm. ABSENT: dry - moist,waxy appearance Results Laboratory Results: 12/25/16 04:30 12/25/16 04:30 12/25/16 12/25/16 12/25/16 04:30 04:30 04:40 WBC 12.5 H RBC 3.80 L Hgb 10.9 L Hct 32.7 L MCV 86 MCH 28.6 MCHC 33.2 RDW 14.7 H Plt Count 85 L Carbonic Acid 1.28 HCO3/H2CO3 Ratio 22:1 ABG pH 7.44 ABG pCO2 42.5 ABG pO2 81.2 ABG HCO3 28.2 H ABG O2 Saturation 96.3 ABG Base Excess 3.6 FiO2 40% Sodium 132.4 L Potassium 4.8 Chloride 97 L Carbon Dioxide 29 Anion Gap 6 BUN 37 H Creatinine 1.15 Est GFR ( Amer) > 60 Est GFR (Non-Af Amer) > 60 Glucose 111 H Calcium 8.6 Phosphorus 4.4 Magnesium 2.7 H Urine Color Urine Appearance Urine pH Ur Specific [place] Urine Protein Urine Glucose (UA) Urine Ketones Urine Blood Urine Nitrite Ur Leukocyte Esterase Urine WBC (Auto) Urine RBC (Auto) 12/25/16 09:30 WBC RBC Hgb Hct MCV MCH MCHC RDW Plt Count Carbonic Acid HCO3/H2CO3 Ratio ABG pH ABG pCO2 ABG pO2 ABG HCO3 ABG O2 Saturation ABG Base Excess FiO2 Sodium Potassium Chloride Carbon Dioxide Anion Gap BUN Creatinine Est GFR ( Amer) Est GFR (Non-Af Amer) Glucose Calcium Phosphorus Magnesium Urine Color YELLOW Urine Appearance SLIGHTLY-CLOUDY Urine pH 5.0 Ur Specific [place] 1.016 Urine Protein NEGATIVE Urine Glucose (UA) NEGATIVE Urine Ketones NEGATIVE Urine Blood SMALL H Urine Nitrite NEGATIVE Ur Leukocyte Esterase NEGATIVE Urine WBC (Auto) 4 Urine RBC (Auto) 2 12/22/16 12/22/16 04:51 04:51 Creatine Kinase 32 L CK-MB (CK-2) 0.87 Troponin I 0.040 Impressions: Chest CT 12/15/16 00:00 IMPRESSION: BULKY MEDIASTINAL AND HILAR LYMPHADENOPATHY AND RIGHT SUPRACLAVICULAR LYMPHADENOPATHY DETAILED ABOVE. FINDINGS ARE MOST CONCERNING FOR LYMPHOMA WITH METASTATIC DISEASE ALSO IN THE DIFFERENTIAL. LYMPH NODES SHOULD BE AMENABLE TO ENDOBRONCHIAL BIOPSY. MULTIFOCAL AIRSPACE DISEASE WITH CONSOLIDATION RIGHT LOWER LOBE AND TRACE PLEURAL EFFUSION LIKELY REPRESENTS A POSTOBSTRUCTIVE PNEUMONIA. CORONARY ARTERY DISEASE. Venous Doppler Study 12/20/16 00:00 IMPRESSION: NO EVIDENCE DVT OR SVT IN EITHER LEG. INCIDENTAL REFLUX IN THE GREATER SAPHENOUS VEIN. Fluoroscopy 12/21/16 00:00 IMPRESSION: Intra procedural imaging and fluoro Abdomen/Pelvis CT 12/22/16 13:34 IMPRESSION: There are small bilateral pleural effusions, increased on the right and new on the left since the prior study. Increased basilar airspace disease in both lower lobes. Similar increased interstitial and nodular opacities are noted elsewhere. Similar bulky mediastinal adenopathy. Moderate pericardial effusion, stable. Mild nonspecific retroperitoneal fat stranding. No obvious masses or bulky adenopathy.17 cm infra umbilical ventral hernia containing bowel without evidence for obstruction or incarceration. KUB X-Ray 12/24/16 00:00 IMPRESSION: Appropriate nasogastric tube. Stool and gas in the colon with nonobstructive pattern overall. Chest X-Ray 12/24/16 06:00 IMPRESSION: Persistent right lower lobe collapse and consolidation with small right pleural effusion. Minimal left basilar atelectasis with trace left pleural fluid Unchanged sub- carinal mass Assessment & Plan - Diagnosis (1) Small cell carcinoma of lung Qualifiers: Laterality: unspecified laterality Qualified Code(s): C34.90 - Malignant neoplasm of unspecified part of unspecified bronchus or lung Is this a current diagnosis for this admission?: YesPlan: extensive stage due to metastatic disease noted outside the thorax in supraclavicular nodes; oncology following and anticipates starting chemo if patient and family agreeable and pneumonia/pneumonitis under control (2) Pneumonia Qualifiers: Pneumonia type: due to unspecified organism Laterality: right Is this a current diagnosis for this admission?: YesPlan: slightly better; no fevers and leukocytosis improved from 19.8 to <13.0; possibly pneumonitis but leukocytosis seemed to immediately respond to IV Abx so continue same; cultures unhelpful so far. (3) Atrial fibrillation Qualifiers: Atrial fibrillation type: unspecified Qualified Code(s): I48.91 - Unspecified atrial fibrillation Is this a current diagnosis for this admission?: YesPlan: about the same; rate variably not as well controlled, back on the cardizem gtt at present. hold anticoagulation due to falling platelets. defer to dr cox regarding further treatment of his afib. 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 (5) Acute exacerbation of chronic obstructive pulmonary disease (COPD) Is this a current diagnosis for this admission?: YesPlan: improved but not back to baseline; titrate medrol off as tolerated, as this may be confounding his volume status and Na levels. (6) HTN (hypertension) Qualifiers: Hypertension type: essential hypertension Qualified Code(s): I10 - Essential (primary) hypertension Is this a current diagnosis for this admission?: NoPlan: remains hypotensive and on vasopressor, see below. (7) Hypoxemia Is this a current diagnosis for this admission?: Yes (8) Mediastinal lymphadenopathy Is this a current diagnosis for this admission?: YesPlan: SCLC per Bx (9) Pericardial effusion Is this a current diagnosis for this admission?: YesPlan: likely source for his afib per dr cox, will repeat limited echo this morning to monitor progression. likely malignant. (10) Shock due to anesthesia Qualifiers: Encounter type: sequela Qualified Code(s): T88.2XXS - Shock due to anesthesia, sequela Is this a current diagnosis for this admission?: YesPlan: working diagnosis; hopefully he can come off the pressors when diprivan weaned off and positive pressure ventilation removed later today - Time Time Spent with patient: 35 or more minutes - Plan Summary Plan Summary: pt discussed with kranthi dailey and wilma. family is undecided about pursuing chemo and would really like to wait until he is extubated and let him decide.
--- NOTE | 2016-12-25 13:49 | XCELERA REPORT ---
[address] [address] Transthoracic Echocardiogram Report Name: RIRI DUMONT Age: 71 yrs Gender: Male : 1945 Patient Status: Inpatient Patient Location: ICU\S\611\S\A Study Date: 12/25/2016 11:31 AM Height: 67 in Weight: 204 lb BSA: 2.0 m2 Procedure: A limited two-dimensional transthoracic echocardiogram was performed (2D). Study Quality: Fair. Reason For Study: FU of pericardial effusion History: FU of pericardial effusion. Ordering Physician: LORIE BOSTON Performed By: Leslie Mathias Interpretation Summary The pericardial effusion seems to be mrarginally les than that seen on prior echo.No evidence of tamponade. Effusions The pericardial effusion seems to be mrarginally les than that seen on prior echo.No evidence of tamponade. : LORIE BOSTON > Lorie Boston
[2016-12-25] MEDS ORDERED: FUROSEMIDE INJ/PF 20 MG/2 ML SDV IV ONE (14:00)
[2016-12-25] MEDS: DILTIAZEM HCL 30 MG TABLET NG SCH (20:00)
--- NOTE | 2016-12-25 20:04 | PROGRESS NOTE E ---
Progress Note NAME: RIRI DUMONT : 1945 AGE: 71Y DATE: 12/25/2016 ROOM: 611 SUBJECTIVE: Note the patient was seen when he was intubated and also after he was extubated. After extubation, the patient is slightly drowsy. He does seem to be slightly short of breath. The patient continues to be in atrial fibrillation. His blood pressure is stable. He is off the Heri-Synephrine. He still is on the Cardizem at 2.5 mg IV infusion q. hourly. The patient does have orthopnea but no PND. There is some trace leg edema. There is no ventricular arrhythmia seen. OBJECTIVE: VITAL SIGNS: On examination when the patient was intubated, his temperature was 98.8 degrees Fahrenheit. His pulse was 90 beats per minute, irregularly irregular. Blood pressure was 114/76. Respirations were 18 per minute. O2 saturations were 93% on FiO2 of 35%. Subsequently, the patient was seen after extubation and with the Heri-Synephrine off. He was afebrile, and his pulse was 94 beats per minute. Respirations were 17 per minute. O2 saturations were 93% on FiO2 of 50% face mask. His blood pressure was 125/66. HEENT: Head is atraumatic, normocephalic. Eyes: Pupils are equal, round, regular, reactive to light and accommodation. ENT is negative. NECK: Supple. There is no JVD. Carotids are equal; there is no bruit. There is no lymphadenopathy. There is no goiter. LUNGS: Scattered rhonchi bilaterally without any wheezing. There are no rales of CHF. CARDIOVASCULAR: S1, S2 are heard. There is variable S1 intensity. There is no S3 gallop. There is no S4 gallop. There is systolic murmur at the left sternal border and the apex. There is no rub. ABDOMEN: Soft, nontender. There is no hepatosplenomegaly. Bowel sounds are well heard. EXTREMITIES: Femorals are diminished. There are no femoral bruits. Leg pulses are diminished. There is trace pedal edema. There is no cyanosis or clubbing. CENTRAL NERVOUS SYSTEM: The patient is conscious, slightly drowsy but with no focal deficits. PSYCHIATRIC: The patient is slightly drowsy but does not appear to be agitated. Judgment and insight have not been tested since the patient is still drowsy. DIAGNOSTIC TESTS: The patient's repeat limited echocardiogram shows probably a marginally less amount of pericardial effusion without any evidence of tamponade. There is no increase in the pericardial effusion. The patient's 24-hour intake is 1380 mL; output is 1680 mL. The patient's white count is 12,500; hemoglobin is 10.9; hematocrit is 32.7; platelet count is 85,000. The patient's sodium is 132.4, potassium *------*; chloride is 97; CO2 is 29. The patient's BUN is 37; creatinine is 1.15. GFR is greater than 60, and his glucose is 111. His calcium is 8.6, and his phosphorus is 4.4. His magnesium is 2.7. His ABG showed a pH of 7.44; pCO2 is 42.5; pO2 is 81.2. His O2 saturations are 96.3% on FiO2 of 40%. ASSESSMENT: 1. HYPOTENSION MOST LIKELY SECONDARY TO SEPSIS/PNEUMONIA AND RESPIRATORY FAILURE, RESOLVED. Patient off Heri-Synephrine. 2. ATRIAL FIBRILLATION WITH NOW CONTROLLED VENTRICULAR RESPONSE ON IV CARDIZEM 2.5 MG PER HOUR INFUSION. We will stop the Cardizem and change it to Cardizem 30 mg p.o. q.8 hours via the NG tube. 3. STATUS POST BRONCHIAL BIOPSY OF THE RIGHT LOWER LOBE MASS. Biopsy came back positive for small cell lung cancer. The patient in the future will be getting chemotherapy. 4. RESPIRATORY FAILURE STATUS POST EXTUBATION. 5. SMALL CELL LUNG CANCER. 6. MEDIASTINAL LYMPHADENOPATHY AND RIGHT SUPRACLAVICULAR LYMPHADENOPATHY AND ALSO CONSOLIDATION OF THE RIGHT LOWER LOBE MOST LIKELY SECONDARY TO SMALL CELL LUNG CANCER WITH METASTASIS. 7. BILATERAL LOWER LOBE PNEUMONIA WITH EFFUSION SEEMS TO BE IMPROVING. 8. ACUTE EXACERBATION OF COPD. At present, seems to be improving. 9. HISTORY OF HYPERTENSION. At present, the patient's blood pressure is stable off Heri-Synephrine. 10. HISTORY OF ANXIETY. 11. HISTORY OF CORONARY ARTERY DISEASE. At present, no myocardial infarction or anginal symptoms. 12. PERICARDIAL EFFUSION SEEMS TO BE SMALL AND HAS NOT INCREASED. There is no evidence of tamponade. Most likely this is malignant effusion. 13. THROMBOCYTOPENIA. There is no evidence of bleeding. There is no petechiae or ecchymosis. 14. THE PATIENT IS A DNR. His surrogate healthcare decision maker is his . RECOMMENDATIONS: We will discontinue the patient's IV Cardizem drip and start the patient on Cardizem 30 mg via NG tube q.8 hours. Continue Lovenox at 1 mg/kg subcutaneously q.12 hours. Continue antibiotics. Continue anti-COPD medication. Watch for bleeding. Note 30 minutes spent on the patient with more than 50% of the time spent in direct patient care, reviewing the patient's medications, adjust the patient's medications, and coordinating care with the other caregiving providers on the case. Discussed echocardiogram findings with the patient and the patient's family. We will follow with you. Dr. Gerard will take over tomorrow. DICTATING PHYSICIAN: DEANDRA BOSTON M.D. [id number] KATHYAY#: [id number] ID: [id number] JOB#: [id number] ACCT: [id number] cc: >
[2016-12-25] MEDS ORDERED: DILTIAZEM HCL 30 MG TABLET NG SCH (22:00)
[2016-12-26] MEDS: AMPICILLIN SODIUM/SULBACTAM NA 3 GM in NORMAL SALINE 100 ML IV SCH ×2 (00:35→05:44)
[2016-12-26] MEDS: IPRATROPIUM/ALBUTEROL 0.5-2.5 MG/3 ML AMPUL NEB SCH ×3 (02:07→14:37)
[2016-12-26] MEDS: DILTIAZEM HCL 30 MG TABLET NG SCH ×2 (03:19→11:23)
[2016-12-26 05:29] LABS: ARTERIAL BLOOD BASE EXCESS 7.2 mmol/L
[2016-12-26 05:43] LABS: ANION GAP 8 (5-19); BLOOD UREA NITROGEN 40 mg/dL (7-20); CALCIUM 8.9 mg/dL (8.4-10.2); CARBON DIOXIDE 29 mmol/L (22-30); CHLORIDE 101 mmol/L (98-107); CREATININE RESULT 1.05 mg/dL (0.52-1.25); GLUCOSE 128 mg/dL (75-110); MAGNESIUM 2.7 mg/dL (1.6-2.3); PHOSPHORUS 4.2 mg/dL (2.5-4.5); POTASSIUM 4.4 mmol/L (3.6-5.0); SODIUM 138.2 mmol/L (137-145)
--- NOTE | 2016-12-26 06:41 | RADIOLOGY REPORT (SQ) ---
EXAM DESCRIPTION: CHEST SINGLE VIEW COMPLETED DATE/TIME: 12/26/2016 6:23 am REASON FOR STUDY: resp failure SCLC COMPARISON: 12/25/2016. EXAM PARAMETERS: NUMBER OF VIEWS: One view. TECHNIQUE: Single frontal radiographic view of the chest acquired. RADIATION DOSE: NA LIMITATIONS: Rotational artifact. FINDINGS: LUNGS AND PLEURA: Moderate bibasilar opacity-effusion. Moderate lung volumes. MEDIASTINUM AND HILAR STRUCTURES: No masses. Contour normal. HEART AND VASCULAR STRUCTURES: Mild enlargement of the cardiac silhouette. BONES: No acute findings. HARDWARE: None in the chest. Interval absence of endotracheal -enteric tubes. OTHER: No other significant finding. IMPRESSION: Bibasilar opacity -effusion, stable. TECHNICAL DOCUMENTATION: JOB ID: [id number]
--- NOTE | 2016-12-26 08:42 | PDOC PROGRESS REPORT ---
Subjective Progress Note for:: 12/26/16 Subjective:: No new events, patient is more lucid, having more discussion with family about next steps of care. I discussed with him that we completely agree with comfort care measures but that will be family decision. Today spent greater than 45 minutes in discussion with family. Patient is DNR. Physical Exam Vital Signs: Temp Pulse Resp BP Pulse Ox 98.1 F 104 H 25 H 153/99 H 90 L 12/26/16 08:00 12/26/16 08:00 12/26/16 08:00 12/26/16 08:00 12/26/16 08:00 Intake & Output 12/25/16 12/26/16 12/27/16 06:59 06:59 06:59 Intake Total 1308 835 Output Total 1680 3770 350 Balance -372 -2935 -350 Weight 92.7 kg 87.5 kg General appearance: PRESENT: no acute distress, well-developed, well-nourished Head exam: PRESENT: atraumatic, normocephalic Eye exam: PRESENT: conjunctiva pink, EOMI, PERRLA. ABSENT: scleral icterus Ear exam: PRESENT: normal external ear exam Mouth exam: PRESENT: moist, tongue midline Neck exam: ABSENT: carotid bruit, JVD, lymphadenopathy, thyromegaly Respiratory exam: PRESENT: clear to auscultation stewart. ABSENT: rales, rhonchi, wheezes Cardiovascular exam: PRESENT: RRR. ABSENT: diastolic murmur, rubs, systolic murmur Pulses: PRESENT: normal dorsalis pedis pul Vascular exam: PRESENT: normal capillary refill GI/Abdominal exam: PRESENT: normal bowel sounds, soft. ABSENT: distended, guarding, mass, organolmegaly, rebound, tenderness Rectal exam: PRESENT: deferred Extremities exam: PRESENT: full ROM. ABSENT: calf tenderness, clubbing, pedal edema Neurological exam: PRESENT: alert, awake, oriented to person, oriented to place , oriented to time, oriented to situation, CN II-XII grossly intact. ABSENT: motor sensory deficit Psychiatric exam: PRESENT: appropriate affect, normal mood. ABSENT: homicidal ideation, suicidal ideation Skin exam: PRESENT: dry, intact, warm. ABSENT: cyanosis, rash Results Laboratory Results: 12/25/16 04:30 12/26/16 04:45 12/25/16 12/26/16 12/26/16 09:30 04:45 04:45 Carbonic Acid 1.32 HCO3/H2CO3 Ratio 23:1 ABG pH 7.48 H ABG pCO2 43.7 ABG pO2 70.1 L ABG HCO3 31.6 H ABG O2 Saturation 95.0 ABG Base Excess 7.2 FiO2 4 L Sodium 138.2 Potassium 4.4 Chloride 101 Carbon Dioxide 29 Anion Gap 8 BUN 40 H Creatinine 1.05 Est GFR ( Amer) > 60 Est GFR (Non-Af Amer) > 60 Glucose 128 H Calcium 8.9 Phosphorus 4.2 Magnesium 2.7 H Urine Color YELLOW Urine Appearance SLIGHTLY-CLOUDY Urine pH 5.0 Ur Specific [place] 1.016 Urine Protein NEGATIVE Urine Glucose (UA) NEGATIVE Urine Ketones NEGATIVE Urine Blood SMALL H Urine Nitrite NEGATIVE Ur Leukocyte Esterase NEGATIVE Urine WBC (Auto) 4 Urine RBC (Auto) 2 12/24/16 13:00 Tracheal Aspirate Gram Stain - Final 12/21/16 11:44 Bronchial Washings AFB Smear Concentration - Final 12/21/16 11:44 Bronchial Washings Acid Fast Bacilli Smear - Final 12/22/16 12/22/16 04:51 04:51 Creatine Kinase 32 L CK-MB (CK-2) 0.87 Troponin I 0.040 Impressions: Chest CT 12/15/16 00:00 IMPRESSION: BULKY MEDIASTINAL AND HILAR LYMPHADENOPATHY AND RIGHT SUPRACLAVICULAR LYMPHADENOPATHY DETAILED ABOVE. FINDINGS ARE MOST CONCERNING FOR LYMPHOMA WITH METASTATIC DISEASE ALSO IN THE DIFFERENTIAL. LYMPH NODES SHOULD BE AMENABLE TO ENDOBRONCHIAL BIOPSY. MULTIFOCAL AIRSPACE DISEASE WITH CONSOLIDATION RIGHT LOWER LOBE AND TRACE PLEURAL EFFUSION LIKELY REPRESENTS A POSTOBSTRUCTIVE PNEUMONIA. CORONARY ARTERY DISEASE. Venous Doppler Study 12/20/16 00:00 IMPRESSION: NO EVIDENCE DVT OR SVT IN EITHER LEG. INCIDENTAL REFLUX IN THE GREATER SAPHENOUS VEIN. Fluoroscopy 12/21/16 00:00 IMPRESSION: Intra procedural imaging and fluoro Abdomen/Pelvis CT 12/22/16 13:34 IMPRESSION: There are small bilateral pleural effusions, increased on the right and new on the left since the prior study. Increased basilar airspace disease in both lower lobes. Similar increased interstitial and nodular opacities are noted elsewhere. Similar bulky mediastinal adenopathy. Moderate pericardial effusion, stable. Mild nonspecific retroperitoneal fat stranding. No obvious masses or bulky adenopathy.17 cm infra umbilical ventral hernia containing bowel without evidence for obstruction or incarceration. KUB X-Ray 12/24/16 00:00 IMPRESSION: Appropriate nasogastric tube. Stool and gas in the colon with nonobstructive pattern overall. Chest X-Ray 12/26/16 06:00 IMPRESSION: Bibasilar opacity -effusion, stable. Assessment & Plan - Diagnosis (1) Primary malignant neoplasm of right middle lobe of lung Is this a current diagnosis for this admission?: YesPlan: Most likely going to be pursuing comfort care measures soon, agree with this approach, will not pursue further treatment most likely. - Time Time Spent with patient: 35 or more minutes Critical Time spent with patient: 35 or more minutes - Inpatient Certification Based on my medical assessment, after consideration of the patient's comorbidities, presenting symptoms, or acuity I expect that the services needed warrant INPATIENT care.: Yes I certify that my determination is in accordance with my understanding of Medicare's requirements for reasonable and necessary INPATIENT services [42 CFR 412.3e].: Yes Medical Necessity: Need For Continuous Telemetry Monitoring
[2016-12-26] MEDS ORDERED: MORPHINE SULFATE 10 MG/ML INJ IV PRN (09:08)
[2016-12-26] MEDS ORDERED: OXYCODONE-ACETAMINOPHEN 5-325 MG TABLET PO PRN (09:08)
[2016-12-26 09:41] VITALS: BP 142/94
[2016-12-26] MEDS ORDERED: MIDAZOLAM 2 MG/2 ML INJ IV PRN (10:46)
--- NOTE | 2016-12-26 11:11 | PDOC PROGRESS REPORT ---
Subjective Progress Note for:: 12/26/16 Subjective:: 24 hrs s/p extubation wants comfort care per RN Physical Exam Vital Signs: Temp Pulse Resp BP Pulse Ox 98.1 F 118 H 16 142/94 H 100 12/26/16 08:00 12/26/16 08:48 12/26/16 10:00 12/26/16 08:56 12/26/16 10:00 Intake & Output 12/25/16 12/26/16 12/27/16 06:59 06:59 06:59 Intake Total 1308 835 Output Total 1680 3770 525 Balance -372 -2935 -525 Weight 92.7 kg 87.5 kg General appearance: PRESENT: no acute distress, cooperative, disheveled, well- developed, well-nourished Head exam: PRESENT: atraumatic, normocephalic Eye exam: PRESENT: conjunctiva pale, EOMI Mouth exam: PRESENT: dry mucosa, neck supple, tongue midline Neck exam: PRESENT: carotid bruit Respiratory exam: PRESENT: decreased breath sounds, prolonged expiratory phas, rales, rhonchi, symmetrical, unlabored, wheezes Cardiovascular exam: PRESENT: irregular rhythm Pulses: PRESENT: normal radial pulses GI/Abdominal exam: PRESENT: normal bowel sounds, soft. ABSENT: distended, guarding, mass, organolmegaly, rebound, tenderness Rectal exam: PRESENT: deferred Gentrourinary exam: PRESENT: indwelling catheter Musculoskeletal exam: PRESENT: normal inspection Neurological exam: PRESENT: alert, awake Psychiatric exam: PRESENT: normal mood Skin exam: PRESENT: dry, warm Results Laboratory Results: 12/25/16 04:30 12/26/16 04:45 12/26/16 12/26/16 04:45 04:45 Carbonic Acid 1.32 HCO3/H2CO3 Ratio 23:1 ABG pH 7.48 H ABG pCO2 43.7 ABG pO2 70.1 L ABG HCO3 31.6 H ABG O2 Saturation 95.0 ABG Base Excess 7.2 FiO2 4 L Sodium 138.2 Potassium 4.4 Chloride 101 Carbon Dioxide 29 Anion Gap 8 BUN 40 H Creatinine 1.05 Est GFR ( Amer) > 60 Est GFR (Non-Af Amer) > 60 Glucose 128 H Calcium 8.9 Phosphorus 4.2 Magnesium 2.7 H 12/24/16 13:00 Tracheal Aspirate Gram Stain - Final 12/24/16 13:00 Tracheal Aspirate Sputum Culture - Final C.albicans/C.dubliniensis Normal Liz Absent 12/21/16 11:44 Bronchial Washings AFB Smear Concentration - Final 12/21/16 11:44 Bronchial Washings Acid Fast Bacilli Smear - Final 12/22/16 12/22/16 04:51 04:51 Creatine Kinase 32 L CK-MB (CK-2) 0.87 Troponin I 0.040 Impressions: Chest CT 12/15/16 00:00 IMPRESSION: BULKY MEDIASTINAL AND HILAR LYMPHADENOPATHY AND RIGHT SUPRACLAVICULAR LYMPHADENOPATHY DETAILED ABOVE. FINDINGS ARE MOST CONCERNING FOR LYMPHOMA WITH METASTATIC DISEASE ALSO IN THE DIFFERENTIAL. LYMPH NODES SHOULD BE AMENABLE TO ENDOBRONCHIAL BIOPSY. MULTIFOCAL AIRSPACE DISEASE WITH CONSOLIDATION RIGHT LOWER LOBE AND TRACE PLEURAL EFFUSION LIKELY REPRESENTS A POSTOBSTRUCTIVE PNEUMONIA. CORONARY ARTERY DISEASE. Venous Doppler Study 12/20/16 00:00 IMPRESSION: NO EVIDENCE DVT OR SVT IN EITHER LEG. INCIDENTAL REFLUX IN THE GREATER SAPHENOUS VEIN. Fluoroscopy 12/21/16 00:00 IMPRESSION: Intra procedural imaging and fluoro Abdomen/Pelvis CT 12/22/16 13:34 IMPRESSION: There are small bilateral pleural effusions, increased on the right and new on the left since the prior study. Increased basilar airspace disease in both lower lobes. Similar increased interstitial and nodular opacities are noted elsewhere. Similar bulky mediastinal adenopathy. Moderate pericardial effusion, stable. Mild nonspecific retroperitoneal fat stranding. No obvious masses or bulky adenopathy.17 cm infra umbilical ventral hernia containing bowel without evidence for obstruction or incarceration. KUB X-Ray 12/24/16 00:00 IMPRESSION: Appropriate nasogastric tube. Stool and gas in the colon with nonobstructive pattern overall. Chest X-Ray 12/26/16 06:00 IMPRESSION: Bibasilar opacity -effusion, stable. Assessment & Plan - Diagnosis (1) Acute exacerbation of chronic obstructive pulmonary disease (COPD) Is this a current diagnosis for this admission?: Yes (2) COPD (chronic obstructive pulmonary disease) Qualifiers: COPD type: COPD with acute exacerbation Qualified Code(s): J44.1 - Chronic obstructive pulmonary disease with (acute) exacerbation Is this a current diagnosis for this admission?: Yes (3) HTN (hypertension) Qualifiers: Hypertension type: essential hypertension Qualified Code(s): I10 - Essential (primary) hypertension Is this a current diagnosis for this admission?: No (4) Mediastinal lymphadenopathy Is this a current diagnosis for this admission?: YesPlan: SCLC per RN patient wishes to be comfort care (5) Atrial fibrillation Qualifiers: Atrial fibrillation type: unspecified Qualified Code(s): I48.91 - Unspecified atrial fibrillation Is this a current diagnosis for this admission?: Yes - Time Critical Time spent with patient: 35 or more minutes - discussion with family
--- NOTE | 2016-12-26 11:15 | PDOC PROGRESS REPORT ---
Subjective Progress Note for:: 12/25/16 Subjective:: intubated Physical Exam Vital Signs: Temp Pulse Resp BP Pulse Ox 98.8 F 91 17 131/70 H 95 12/25/16 08:00 12/25/16 08:00 12/25/16 08:00 12/25/16 08:00 12/25/16 08:00 Intake & Output 12/24/16 12/25/16 12/26/16 06:59 06:59 06:59 Intake Total 2009 1307 Output Total 1734 2960 75 Balance 275 -372 -75 Weight 93.1 kg 92.7 kg General appearance: PRESENT: no acute distress, disheveled, well-developed, well -nourished Head exam: PRESENT: atraumatic, normocephalic Eye exam: PRESENT: conjunctiva pale, EOMI Mouth exam: PRESENT: moist, neck supple, other - ET tube Neck exam: ABSENT: carotid bruit, JVD, lymphadenopathy, thyromegaly Respiratory exam: PRESENT: decreased breath sounds, prolonged expiratory phas, rhonchi, symmetrical, unlabored Cardiovascular exam: PRESENT: irregular rhythm Pulses: PRESENT: normal radial pulses GI/Abdominal exam: PRESENT: normal bowel sounds, soft. ABSENT: distended, guarding, mass, organolmegaly, rebound, tenderness Rectal exam: PRESENT: deferred Gentrourinary exam: PRESENT: indwelling catheter Musculoskeletal exam: PRESENT: normal inspection Neurological exam: PRESENT: awake Skin exam: PRESENT: dry, warm Results Laboratory Results: 12/25/16 04:30 12/25/16 04:30 12/25/16 12/25/16 12/25/16 04:30 04:30 04:40 WBC 12.5 H RBC 3.80 L Hgb 10.9 L Hct 32.7 L MCV 86 MCH 28.6 MCHC 33.2 RDW 14.7 H Plt Count 85 L Carbonic Acid 1.28 HCO3/H2CO3 Ratio 22:1 ABG pH 7.44 ABG pCO2 42.5 ABG pO2 81.2 ABG HCO3 28.2 H ABG O2 Saturation 96.3 ABG Base Excess 3.6 FiO2 40% Sodium 132.4 L Potassium 4.8 Chloride 97 L Carbon Dioxide 29 Anion Gap 6 BUN 37 H Creatinine 1.15 Est GFR ( Amer) > 60 Est GFR (Non-Af Amer) > 60 Glucose 111 H Calcium 8.6 Phosphorus 4.4 Magnesium 2.7 H 12/21/16 11:44 Bronchial Washings Fungal Smear - Final 12/21/16 11:44 Bronchial Washings Fungal Smear - Final 12/21/16 11:44 Bronchial Washings Fungal Smear - Final 12/22/16 12/22/16 04:51 04:51 Creatine Kinase 32 L CK-MB (CK-2) 0.87 Troponin I 0.040 Impressions: Chest CT 12/15/16 00:00 IMPRESSION: BULKY MEDIASTINAL AND HILAR LYMPHADENOPATHY AND RIGHT SUPRACLAVICULAR LYMPHADENOPATHY DETAILED ABOVE. FINDINGS ARE MOST CONCERNING FOR LYMPHOMA WITH METASTATIC DISEASE ALSO IN THE DIFFERENTIAL. LYMPH NODES SHOULD BE AMENABLE TO ENDOBRONCHIAL BIOPSY. MULTIFOCAL AIRSPACE DISEASE WITH CONSOLIDATION RIGHT LOWER LOBE AND TRACE PLEURAL EFFUSION LIKELY REPRESENTS A POSTOBSTRUCTIVE PNEUMONIA. CORONARY ARTERY DISEASE. Venous Doppler Study 12/20/16 00:00 IMPRESSION: NO EVIDENCE DVT OR SVT IN EITHER LEG. INCIDENTAL REFLUX IN THE GREATER SAPHENOUS VEIN. Fluoroscopy 12/21/16 00:00 IMPRESSION: Intra procedural imaging and fluoro Abdomen/Pelvis CT 12/22/16 13:34 IMPRESSION: There are small bilateral pleural effusions, increased on the right and new on the left since the prior study. Increased basilar airspace disease in both lower lobes. Similar increased interstitial and nodular opacities are noted elsewhere. Similar bulky mediastinal adenopathy. Moderate pericardial effusion, stable. Mild nonspecific retroperitoneal fat stranding. No obvious masses or bulky adenopathy.17 cm infra umbilical ventral hernia containing bowel without evidence for obstruction or incarceration. KUB X-Ray 12/24/16 00:00 IMPRESSION: Appropriate nasogastric tube. Stool and gas in the colon with nonobstructive pattern overall. Chest X-Ray 12/24/16 06:00 IMPRESSION: Persistent right lower lobe collapse and consolidation with small right pleural effusion. Minimal left basilar atelectasis with trace left pleural fluid Unchanged sub- carinal mass Assessment & Plan - Diagnosis (1) Acute exacerbation of chronic obstructive pulmonary disease (COPD) Is this a current diagnosis for this admission?: YesPlan: rr,min vol,fio2 suggest successful extubation (2) COPD (chronic obstructive pulmonary disease) Qualifiers: COPD type: COPD with acute exacerbation Qualified Code(s): J44.1 - Chronic obstructive pulmonary disease with (acute) exacerbation Is this a current diagnosis for this admission?: Yes (3) HTN (hypertension) Qualifiers: Hypertension type: essential hypertension Qualified Code(s): I10 - Essential (primary) hypertension Is this a current diagnosis for this admission?: Yes (4) Mediastinal lymphadenopathy Is this a current diagnosis for this admission?: Yes (5) Atrial fibrillation Qualifiers: Atrial fibrillation type: unspecified Qualified Code(s): I48.91 - Unspecified atrial fibrillation Is this a current diagnosis for this admission?: Yes - Time Critical Time spent with patient: 35 or more minutes - extubation
--- NOTE | 2016-12-26 18:40 | Death Summary ---
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 He has had progressive cough, wheezing and shortness of breath for the past two months. He has been seen as an outpatient by his primary care team at Dr. Klein' office. I have obtained additional information: He has lost 40 pounds over the past few months. He had an out-patient CT chest on 2016 which showed extensive mediastinal adenopathy and other findings suggestive of metastatic cancer or lymphoma. There had not been enough time to address those findings before this admission. The patient's symptoms significantly worsened over the week [employer]. On the day of admission he was barely able to breathe and presented to the emergency department. He was found to have significant wheezing and chest congestion. He was afebrile. His white blood count was 7.3. His chest x-ray showed right basilar consolidate-effusion with some interval diminished right lung volume. Of note, he has a known right pleural effusion. The patient was admitted with acute exacerbation of COPD and continues to improve with IV fluids, antibiotics, bronchodilators, corticosteroids, and oxygen supplementation. He feels better at rest but still c /o dyspnea on minimal exertion. The patient has been seen by Dr. White of pulmonology and I have discussed the case with him. A follow-up CT of the chest was done on 12/15 and bronchoscopy is planned for Tuesday 12/19. Overall, he (initially) feels better with the respiratory treatments but is still significantly REESE." ekg performed Sunday night for reasons not clear to me shows new onset afib, confirmed on repeat when I arrived Sunday. he is asymptomatic as to palpitations, still feels fatigued and breathless with minimal exertion but denied chest pain, cough with phlegm, fever/chills. his nurse and his indicate he was a bit confused that morning, tried to pour his gatorade onto his IV site b/c he "needed to water the garden" but as of Sunday his mental state has cleared back to baseline. His HR is better controlled on short acting oral cardizem and his breathing also continued to improve. However, in the workup of the mediastinal mass, and with Dr Cox's blessing regarding his cardiac status, he underwent bronchoscopy with extensive bronchial lavage and trans-bronchial Bx and unfortunately required intubation and mechanical ventilation post procedure until this Sunday. He developed new bilat infiltrates with probable pneumonitis, possible pneumonia and septic shock after bronchoscopy with improving leukocytosis and hemodynamics after initiation of abx. He remains on cardizem gtt for control of his vent response to pesistent afib, anticoagulation on hold for procedures and due to worsening thrombocytopenia. Cultures from bronchial lavage and tracheal aspirate are unrevealing. Unfortunately his Bx shows extensive stage SCLC and oncology is hoping to initiate chemo followed by XRT once his condition stabilizes. The patient has been intubated and sedated and is unaware of his cancer diagnosis to my knowledge as of this writing. He is making steady progress and might actually extubate later today, per my discussion with dr white. remains intubated and sedated ROS: unobtainable due to sedation 12/26: I Saw the patient this morning in the presence of his and other family member. The Patient was sitting in bed on bilevel Pap. Bilevel Pap was removed and I discussed with the patient his wishes. Patient was quite clear he said that he wanted to and go to be with his parents. He told me that he wanted no further interventions to include IV fluids or antibiotics. He does not like the bilevel Pap and wants this off is face once the the rest of his family members arrive for him to say goodbye. The patient's sats dropped quickly to 60s once bipap was removed and bottomed out to 58. His was in the room and witnessed and agreed with this. The oncology service was also present. Patient was made comfort care. I spoke about his wishes with the rest of his family members out in the waiting room and everyone was in agreement. He Did receive 1 dose of morphine at point. After his daughter and other family members arrived the bilevel Pap was taken off. The patient unfortunately at 1328. He had no spontaneous respirations, no audible heart tones or chest rise and fall. [place] [facility] [place] spent: 1 hour
--- NOTE | 2016-12-26 20:38 | PROGRESS NOTE E ---
Progress Note NAME: RIRI DUMONT : 1945 AGE: 71Y DATE: 12/25/2016 ROOM: 611 THIS IS A DUPLICATE.PLEASE DISCARD SUBJECTIVE: Note the patient was seen when he was intubated and also the patient seen after extubation. After extubation, the patient is slightly drowsy. He denies any increased shortness of breath. There is no chest pain or discomfort. The patient continues to be in atrial fibrillation at present on controlled ventricular response. The patient off Heri-Synephrine. There are no TIA or CVA symptoms. There is no bleeding on current Lovenox. OBJECTIVE: The patient on examination is mildly obese. Appears to be malnourished though. END OF DICTATION DICTATING PHYSICIAN: DEANDRA BOSTON M.D. [id number] PHY#: [id number] ID: [id number] JOB#: [id number] ACCT: [id number] cc: > MTDD
--- NOTE | 2016-12-27 18:50 | PDOC PROGRESS REPORT ---
Subjective Progress Note for:: 12/26/16 Subjective:: Patient was seen earlier in the morning at around 9:30 AM. Patient was noted to be not doing well. He was in respiratory distress on bilevel therapy. Family in the room trying to decide CODE STATUS. Physical Exam Vital Signs: Temp Pulse Resp BP Pulse Ox 98.1 F 118 H 16 142/94 H 100 12/26/16 08:00 12/26/16 08:48 12/26/16 10:00 12/26/16 08:56 12/26/16 10:00 Intake & Output 12/25/16 12/26/16 12/27/16 06:59 06:59 06:59 Intake Total 1308 835 Output Total 1680 3770 525 Balance -372 -2935 -525 Weight 92.7 kg 87.5 kg Exam: General appearance: PRESENT: Mild respiratory distress, average built Head exam: PRESENT: atraumatic, normocephalic Eye exam: ABSENT: conjunctival injection, scleral icterus Mouth exam: PRESENT: dry mucosa, neck supple Neck exam: PRESENT: lymphadenopathy - rock hard 3cm node supraclavicular. ABSENT: JVD, tracheal deviation Respiratory exam: PRESENT: crackles - bases. Few rales, rhonchi, no significant tachypnea, labored breathing noted Cardiovascular exam: PRESENT: irregular rhythm, systolic murmur, tachycardia - mild Pulses: PRESENT: normal radial pulses, normal dorsalis pedis pul GI/Abdominal exam: PRESENT: hypoactive bowel sounds, soft, other - NGT in place ; no TFs due to persistent high residuals. ABSENT: distended, tenderness - no grimace Gentrourinary exam: PRESENT: indwelling catheter. ABSENT: scrotal swelling Extremities exam: PRESENT: +2 edema Neurological exam: PRESENT: altered - sedated Skin exam: PRESENT: warm. ABSENT: dry - moist,waxy appearance Results Laboratory Results: 12/25/16 04:30 12/26/16 04:45 12/26/16 12/26/16 04:45 04:45 Carbonic Acid 1.32 HCO3/H2CO3 Ratio 23:1 ABG pH 7.48 H ABG pCO2 43.7 ABG pO2 70.1 L ABG HCO3 31.6 H ABG O2 Saturation 95.0 ABG Base Excess 7.2 FiO2 4 L Sodium 138.2 Potassium 4.4 Chloride 101 Carbon Dioxide 29 Anion Gap 8 BUN 40 H Creatinine 1.05 Est GFR ( Amer) > 60 Est GFR (Non-Af Amer) > 60 Glucose 128 H Calcium 8.9 Phosphorus 4.2 Magnesium 2.7 H 12/24/16 13:00 Tracheal Aspirate Gram Stain - Final 12/24/16 13:00 Tracheal Aspirate Sputum Culture - Final C.albicans/C.dubliniensis Normal Liz Absent 12/21/16 11:44 Bronchial Washings AFB Smear Concentration - Final 12/21/16 11:44 Bronchial Washings Acid Fast Bacilli Smear - Final 12/22/16 12/22/16 04:51 04:51 Creatine Kinase 32 L CK-MB (CK-2) 0.87 Troponin I 0.040 Impressions: Chest CT 12/15/16 00:00 IMPRESSION: BULKY MEDIASTINAL AND HILAR LYMPHADENOPATHY AND RIGHT SUPRACLAVICULAR LYMPHADENOPATHY DETAILED ABOVE. FINDINGS ARE MOST CONCERNING FOR LYMPHOMA WITH METASTATIC DISEASE ALSO IN THE DIFFERENTIAL. LYMPH NODES SHOULD BE AMENABLE TO ENDOBRONCHIAL BIOPSY. MULTIFOCAL AIRSPACE DISEASE WITH CONSOLIDATION RIGHT LOWER LOBE AND TRACE PLEURAL EFFUSION LIKELY REPRESENTS A POSTOBSTRUCTIVE PNEUMONIA. CORONARY ARTERY DISEASE. Venous Doppler Study 12/20/16 00:00 IMPRESSION: NO EVIDENCE DVT OR SVT IN EITHER LEG. INCIDENTAL REFLUX IN THE GREATER SAPHENOUS VEIN. Fluoroscopy 12/21/16 00:00 IMPRESSION: Intra procedural imaging and fluoro Abdomen/Pelvis CT 12/22/16 13:34 IMPRESSION: There are small bilateral pleural effusions, increased on the right and new on the left since the prior study. Increased basilar airspace disease in both lower lobes. Similar increased interstitial and nodular opacities are noted elsewhere. Similar bulky mediastinal adenopathy. Moderate pericardial effusion, stable. Mild nonspecific retroperitoneal fat stranding. No obvious masses or bulky adenopathy.17 cm infra umbilical ventral hernia containing bowel without evidence for obstruction or incarceration. KUB X-Ray 12/24/16 00:00 IMPRESSION: Appropriate nasogastric tube. Stool and gas in the colon with nonobstructive pattern overall. Chest X-Ray 12/26/16 06:00 IMPRESSION: Bibasilar opacity -effusion, stable. Assessment & Plan - Diagnosis (1) Acute and chronic respiratory failure Is this a current diagnosis for this admission?: Yes (2) Atrial fibrillation Qualifiers: Atrial fibrillation type: unspecified Qualified Code(s): I48.91 - Unspecified atrial fibrillation Is this a current diagnosis for this admission?: Yes (3) COPD (chronic obstructive pulmonary disease) Qualifiers: COPD type: COPD with acute exacerbation Qualified Code(s): J44.1 - Chronic obstructive pulmonary disease with (acute) exacerbation Is this a current diagnosis for this admission?: Yes - Notes Notes: Patient remained severely thick in some respiratory problems. He has been noted to have malignancy. Cardiac barreto his heart rate is stable. Family trying to decide CODE STATUS. Currently DNR but they might make him a comfort care. No changes recommended. Will sign off. Please reconsult if needed. - Time Time with patient: Less than 15 minutes
== END 2016-12-26 13:28 | disposition expired | DRG 166 ==
LOC: ER 04:14 → UNDOADMIN 09:51 → EH 09:51 → 4S 11:15 → 3S 12-20 16:58 → ICU 12-21 13:13
PROVIDERS: ADMIT Internal Medicine; ATTEND Internal Medicine
PROC: 05HM33Z Insertion of Infusion Device into Right Internal Jugular Vein, Percutaneous Approach (ICD-10-PCS; 2016-12-21)
PROC: 0BBF8ZX Excision of Right Lower Lung Lobe, Via Natural or Artificial Opening Endoscopic, Diagnostic (ICD-10-PCS; principal; 2016-12-21 10:45)
PROC: 0BH17EZ Insertion of Endotracheal Airway into Trachea, Via Natural or Artificial Opening (ICD-10-PCS; 2016-12-21 10:45)
PROC: 5A1955Z Respiratory Ventilation, Greater than 96 Consecutive Hours (ICD-10-PCS; 2016-12-21 10:45)
DX: J44.1 Chronic obstructive pulmonary disease with (acute) exacerbation (principal); J18.9 Pneumonia, unspecified organism; A41.9 Sepsis, unspecified organism; J96.01 Acute respiratory failure with hypoxia; J96.02 Acute respiratory failure with hypercapnia; C34.2 Malignant neoplasm of middle lobe, bronchus or lung; T88.2XXA Shock due to anesthesia, initial encounter; E87.1 Hypo-osmolality and hyponatremia; Z51.5 Encounter for palliative care; Z66 Do not resuscitate; M19.90 Unspecified osteoarthritis, unspecified site; I48.91 Unspecified atrial fibrillation; E86.0 Dehydration; F41.9 Anxiety disorder, unspecified; G47.00 Insomnia, unspecified; D69.6 Thrombocytopenia, unspecified; I10 Essential (primary) hypertension; I25.10 Atherosclerotic heart disease of native coronary artery without angina pectoris; Z87.891 Personal history of nicotine dependence; Z79.899 Other long term (current) drug therapy; K43.9 Ventral hernia without obstruction or gangrene; R63.4 Abnormal weight loss
CPT/HCPCS: 31624; 31628; 31629; 36415; 36600; 520; 71010; 71250; 74000; 74176; 80048; 80053; 81001; 82550; 82553; 82565; 82803; 82962; 83735; 83880; 84100; 84439; 84443; 84484; 85025; 85027; 85379; 85610; 85730; 86022; 87015; 87070; 87101; 87116; 87205; 87206; 88305; 88341; 88342; 89050; 93005; 93010; 93306; 93321; 93970; 94002; 94003; 94640; 94660; 94799; 99291; C1751; J0295; J0330; J1160; J1650; J1940; J2250; J2270; J2370; J2704; J2920; J2930; J3010; J3480; J3490; J7060; J7512; J7620; S0164